=== PATIENT | female | born 1935 | race Caucasian/White ===

== ENCOUNTER → 2016-05-16 | Outpatient (CLI) | payer BC ==
[~2016-05-16] MED LIST: ANAS1TAB6 PO; ASPI81TA28 PO; CALC500C70 PO; CARB200T PO; CEFD1CAP14 PO; CHOL100010 PO; CHOL1TAB76 PO; CIPR250T3 PO; CITA10TA4 PO; CLX20 PO; DIAZ5TAB3 PO; GARL10007 PO; GARL1CAP5 PO; HYDR12.56 PO; HYDR500C3 PO; ISOS20TA4 PO; LANS30CA12 PO; LISI40TA PO; METO25TA3 PO; MULTCHW PO; OMEG10007 PO; PRAV20TA PO; PRED1SUS17 OP; PRED1SUS3 OPB; TIMO0.5S2 OPR; TMPOPS15 OP; VERA120T15 PO
== END | disposition home or self-care (01) ==
LOC: C.LABSPEC 17:31
PROVIDERS: ATTEND Urology
DX: N39.0 Urinary tract infection, site not specified (principal)

== ENCOUNTER → 2016-06-13 | Outpatient (CLI) | payer BC | END | disposition home or self-care (01) | LOC: C.LABSPEC 17:15 | PROVIDERS: ATTEND Urology | DX: N39.0 Urinary tract infection, site not specified (principal) ==

== ENCOUNTER → 2016-06-13 | Outpatient (CLI) | payer BC ==
--- NOTE | 2016-06-13 12:39 | DIAGNOSTIC IMAGING REPORT ---
KUB CLINICAL HISTORY: N20.0 [id number] nephrocalcinosis COMPARISON STUDY: 11/23/2015 FINDINGS: Unchanged peripheral 4 mm calcification right kidney. No new or interval calcifications. Nonobstructive bowel pattern. Moderate degenerative change of all major osseous structures. IMPRESSION: Right renal calcification unchanged from the prior exam. No new or interval renal calcifications Electronically signed by: Glen Ayala M.D. 06/13/2016 12:37 PM Dictated Date/Time: 06/13/2016 12:36 PM
== END | disposition home or self-care (01) ==
LOC: C.RAD 11:45
PROVIDERS: ATTEND Urology
DX: N20.0 Calculus of kidney (principal); N39.0 Urinary tract infection, site not specified

== ENCOUNTER → 2016-07-19 | Outpatient (CLI) | payer BC | END | disposition home or self-care (01) | LOC: C.LABSPEC 16:53 | PROVIDERS: ATTEND Urology | DX: N39.0 Urinary tract infection, site not specified (principal) ==

== ENCOUNTER → 2016-11-08 | Outpatient (CLI) | payer BC ==
[~2016-11-08] MED LIST changes: -CEFD1CAP14 PO; -CHOL1TAB76 PO; -CLX20 PO; -GARL10007 PO; -HYDR12.56 PO; -METO25TA3 PO; -PRED1SUS17 OP; -TMPOPS15 OP
--- NOTE | 2016-11-09 13:52 | MAMMOGRAPHY REPORT ---
BILATERAL DIGITAL SCREENING MAMMOGRAM TOMOSYNTHESIS WITH CAD: 11/08/2016 CLINICAL HISTORY: Asymptomatic. Personal history of breast cancer. TECHNIQUE: Breast tomosynthesis in addition to standard 2D mammography was performed. Current study was also evaluated with a Computer Aided Detection (CAD) system. COMPARISON: Comparison is made to exams dated: 10/26/2014 mammogram - [facility], mammogram, 10/26/2014 ultrasound biopsy, 11/18/2014 localization, and 11/18/2014 specimen - [facility]. BREAST COMPOSITION: The tissue of both breasts is heterogeneously dense, which may obscure small mas ses. FINDINGS: There is expected architectural distortion and a benign oil cyst in the lateral posterior l eft breast, at the site of prior lumpectomy. A linear scar marker overlies the left upper outer quad rant. There are moderate vascular calcifications bilaterally. An asymmetry in the lateral middle on e third of the left breast on the CC view effaces on the corresponding tomosynthesis images, most lik yosi representing normal overlapping fibrolinear tissue. No new suspicious mass, architectural distor tion or cluster of microcalcifications is seen. IMPRESSION: ACR BI-RADS CATEGORY 1: NEGATIVE There are postsurgical changes in the left breast, without mammographic evidence of malignancy bilate rally. A 1 year screening mammogram is recommended. The patient will receive written notification o f the results. Approximately 10% of breast cancers are not detected with mammography. A negative mammographic report should not delay biopsy if a clinically suggestive mass is present. Jessica Horn M.D. ay/:11/08/2016 14:18:48 Staff Counsel: Gretel ECHEVERRIA(R)(M)(BD), [facility] letter sent: Normal 1/2 BI-RADS Code: ACR BI-RADS Category 1: Negative
== END ==
LOC: C.MAMM 13:36
PROVIDERS: ATTEND Nurse Practitioner Family
DX: Z12.31 Encounter for screening mammogram for malignant neoplasm of breast (principal); Z85.3 Personal history of malignant neoplasm of breast

== ENCOUNTER → 2016-11-10 | Outpatient (CLI) | payer BC | END | disposition home or self-care (01) | LOC: C.LABSPEC 14:37 | PROVIDERS: ATTEND Urology | DX: N39.0 Urinary tract infection, site not specified (principal) ==

== ENCOUNTER → 2016-11-13 | Outpatient (CLI) | payer BC, MEDICARE | END | disposition home or self-care (01) | LOC: C.MAMM 07:53 | PROVIDERS: ATTEND Nurse Practitioner Family | DX: C50.919 Malignant neoplasm of unspecified site of unspecified female breast (principal); M81.0 Age-related osteoporosis without current pathological fracture; M85.88 Other specified disorders of bone density and structure, other site ==

== ENCOUNTER 2017-01-03 16:04 | Emergency (ER) | payer BC ==
[~2017-01-03] VITALS: Ht 149.9 cm; Wt 79.0 kg
[2017-01-03 16:10] VITALS: TEMP 37; Ht 149.9 cm; Wt 79.0 kg
--- NOTE | 2017-01-03 17:11 | EMERGENCY ROOM VISIT NOTE ---
History Report prepared by Halina: Romel Eddy Under the Supervision of: Dr. Naty Trejo M.D. First contact with patient: 17:03 Chief Complaint: CONSTIPATION Stated Complaint: FALL ON 12.25.16 Nursing Triage Summary: Pt presents with and granddaughter. Pt states tripped in the parking lot on 12/25. Pt given 2 fleet enemas this morning without results. Denies n/v or abd pain. states, "She was fine until she fell." and pt unable to relate when pts last BM was. History of Present Illness The patient is an 81 year old female who presents to the Emergency Room with persistent constipation over the past few days. Per the patient's granddaughter , the patient was given 2 fleet enemas this morning with no success. The patient denies any nausea, vomiting, chest pain, shortness of breath, or abdominal pain. Per the patient's , the patient tripped and fell in a parking lot 9 days ago, and he thinks that the patient cracked her ribs. However , the patient was never assessed for the fall. She was noted to be fine until the fall occurred. The patient does now complain of pain with movement in her back. Per the patient's granddaughter, the patient has not been eating or drinking well recently. The patient has a history of lung cancer. Source of History: patient, family Onset: Past few days Position: other (global - constipation) Symptom Intensity: 2 fleet enemas did not work Timing: other (persistent) Associated Symptoms: + back pain (with movement), No chest pain, No SOB, No nausea, No vomiting, No abdominal pain Note: Associated symptoms: Fell 9 days ago, has been having pain with movement ever since. Review of Systems See HPI for pertinent positives & negatives. A total of 10 systems reviewed and were otherwise negative. Past Medical & Surgical Medical Problems: (1) Breast cancer (2) Dysphagia (3) Elevated troponin I level (4) sepis, bacteremia, UTI Surgical Problems: (1) Esophageal dilatation (2) H/O endoscopy (3) History of Leigh Ann fundoplication Family History Patient reports no known family medical history. Social History Smoking Status: Former Smoker Alcohol Use: none Drug Use: none Marital Status: Housing Status: lives with significant other Occupation Status: retired Current/Historical Medications Scheduled Anastrozole (Anastrozole), 1 TAB PO NOON Aspirin (Aspirin Ec), 81 MG PO QAM Calcium/Vitamin D (Os-Krzysztof 500 Plus D), 1 TAB PO QAM Carbamazepine (Tegretol), 200 MG PO TID Cefdinir (Omnicef), 300 MG PO DAILY Cholecalciferol (D 2000), 2,000 UNITS PO DAILY Citalopram (Citalopram Hydrobromide), 20 MG PO DAILY Diazepam (Valium), 5 MG PO HS Fish Oil ([place]-3), 1 CAP PO QAM Garlic (Garlic), 1,000 MG PO DAILY Hydrochlorothiazide (Hctz), 12.5 MG PO DAILY Hydroxyurea (Hydrea Cap), 500 MG PO BID Isosorbide Mononitrate (Isosorbide Mononitrate), 20 MG PO BID Lansoprazole (Prevacid), 30 MG PO QAM Lisinopril (Zestril), 40 MG PO QAM Metoprolol Succ (Toprol Xl) (Toprol-Xl), 25 MG PO DAILY Multiple Vitamins W/ Minerals (Centrum Silver), 1 TAB PO QAM Pravastatin (Pravachol ), 20 MG PO QPM Prednisolone Acetate (Ophth) (Prednisolone Acetate), 1 DROP OP BID Timolol Maleate (Timolol 0.5% Oph Soln 15 Ml), 1 DROP OP BID Verapamil (Calan), 120 MG PO QAM Allergies Coded Allergies: Indigo (Verified Allergy, Mild, ?, 01/03/17) Meperidine (Verified Adverse Reaction, Mild, CONFUSION, 01/03/17) Oxycodone (Verified Adverse Reaction, Mild, CONFUSION, 01/03/17) Physical Exam Vital Signs Date Time Temp Pulse Resp B/P (MAP) Pulse Ox O2 Delivery O2 Flow Rate FiO2 01/03/17 20:46 65 16 155/74 94 01/03/17 19:29 69 16 156/76 93 Room Air 01/03/17 17:51 71 01/03/17 16:10 37.0 74 20 136/65 97 Room Air Physical Exam Vital signs reviewed. General: Well-appearing 81 year old female, in no significant distress. HEENT: No scleral icterus, PERRLA, neck supple. Atraumatic. Cardiovascular: Regular rate and rhythm, no extra sounds. Pulmonary: Clear to auscultation bilaterally, normal work of breathing. Abdomen: Soft, obese, nontender, nondistended, positive bowel sounds. Musculoskeletal: Tenderness to palpation diffusely to anterior chest and upper back, no specific tenderness to cervical, thoracic, or lumbosacral spine. No ecchymosis appreciated. Neurologic: Patient awake alert and follows commands but pleasantly confused, full strength in all 4 extremities. Cranial nerves 2 through 12 grossly intact. Skin: Warm, dry, no rash Medical Decision & Procedures ER Provider Diagnostic Interpretation: X-ray results as stated below per interpretation by me and the radiologist: ABDOMEN 2VIEW W/PA CHEST RTN CLINICAL HISTORY: constipation, fall ? rib fx trauma. Pain. COMPARISON STUDY: 06/13/2016 FINDINGS: Mild cardiomegaly. Moderate prominence of pulmonary vasculature. No evidence for pneumothorax. Nondisplaced fractures left seventh through ninth ribs. Cortical fracture left sixth rib. No evidence pneumothorax. Nonobstructive bowel pattern. Degenerative changes of the osseous structures of the pelvis and hip region. IMPRESSION: 1. Nondisplaced cortical fracture left sixth through ninth ribs. 2. No evidence for pneumothorax. 3. Mild stable cardiomegaly. 4. Nonobstructive bowel pattern. The above report was generated using voice recognition software. It may contain grammatical, syntax or spelling errors. Electronically signed by: Glen Ayala M.D. 01/03/2017 7:03 PM Dictated Date/Time: 01/03/2017 7:01 PM Laboratory Results 01/03/17 18:00 Red Blood Count 2.10, Mean Corpuscular Volume 130.5, Mean Corpuscular Hemoglobin 44.3, Mean Corpuscular Hemoglobin Concent 33.9, Mean Platelet Volume 8.7, Neutrophils (%) (Auto) 71.0, Lymphocytes (%) (Auto) 19.9, Monocytes (%) ( Auto) 7.6, Eosinophils (%) (Auto) 1.0, Basophils (%) (Auto) 0.1, Neutrophils # ( Auto) 5.98, Lymphocytes # (Auto) 1.67, Monocytes # (Auto) 0.64, Eosinophils # ( Auto) 0.08, Basophils # (Auto) 0.01 01/03/17 18:00 Test 01/03/17 17:20 01/03/17 18:00 11/29/17 18:13 Urine Color YELLOW Urine Appearance SL CLOUDY (CLEAR) Urine pH 5.0 (4.5-7.5) Urine Specific [place] 1.025 (1.000-1.030) Urine Protein TRACE (NEG) Urine Glucose (UA) NEG (NEG) Urine Ketones NEG (NEG) Urine Occult Blood 1+ (NEG) Urine Nitrite NEG (NEG) Urine Bilirubin NEG (NEG) Urine Urobilinogen NEG (NEG) Urine Leukocyte Esterase MODERATE (NEG) Urine RBC 10-30 /hpf (0-4) Urine WBC >30 /hpf (0-5) Urine Epithelial Cells >30 /lpf (0-5) Urine Bacteria 1+ (NEG) White Blood Count 8.41 K/uL (4.8-10.8) Red Blood Count 2.10 M/uL (4.2-5.4) Hemoglobin 9.3 g/dL (12.0-16.0) Hematocrit 27.4 % (37-47) Mean Corpuscular Volume 130.5 fL (80-100) Mean Corpuscular Hemoglobin 44.3 pg (25-34) Mean Corpuscular Hemoglobin Concent 33.9 g/dl (32-36) Platelet Count 300 K/uL (130-400) Mean Platelet Volume 8.7 fL (7.4-10.4) Neutrophils (%) (Auto) 71.0 % Lymphocytes (%) (Auto) 19.9 % Monocytes (%) (Auto) 7.6 % Eosinophils (%) (Auto) 1.0 % Basophils (%) (Auto) 0.1 % Neutrophils # (Auto) 5.98 K/uL (1.4-6.5) Lymphocytes # (Auto) 1.67 K/uL (1.2-3.4) Monocytes # (Auto) 0.64 K/uL (0.11-0.59) Eosinophils # (Auto) 0.08 K/uL (0-0.5) Basophils # (Auto) 0.01 K/uL (0-0.2) RDW Standard Deviation 60.4 fL (36.4-46.3) RDW Coefficient of Variation 12.8 % (11.5-14.5) Immature Granulocyte % (Auto) 0.4 % Immature Granulocyte # (Auto) 0.03 K/uL (0.00-0.02) Hypersegmented Polys 1+ Macrocytosis PRESENT Anion Gap 6.0 mmol/L (3-11) Est Creatinine Clear Calc Drug Dose 24.3 ml/min Estimated GFR () 33.9 Estimated GFR (Non- 29.3 BUN/Creatinine Ratio 27.8 (10-20) Calcium Level 9.0 mg/dl (8.5-10.1) Magnesium Level 2.6 mg/dl (1.8-2.4) Total Bilirubin 0.2 mg/dl (0.2-1) Direct Bilirubin < 0.1 mg/dl (0-0.2) Aspartate Amino Transf (AST/SGOT) 20 U/L (15-37) Alanine Aminotransferase (ALT/SGPT) 22 U/L (12-78) Alkaline Phosphatase 89 U/L (45-117) Total Protein 7.6 gm/dl (6.4-8.2) Albumin 3.1 gm/dl (3.4-5.0) Lipase 89 U/L (73-393) Bedside Troponin I < 0.030 ng/ml (0-0.045) Laboratory results per my review. Medications Administered Medications (Trade) Dose Ordered Sig/Ashley Route Start Time Stop Time Status Last Admin Dose Admin Cefdinir (Omnicef Cap) 300 mg ONE STAT PO 01/03/17 19:34 01/03/17 19:35 DC 01/03/17 20:13 300 MG Sodium Chloride 250 ml @ 999 mls/hr Q16M STAT IV 01/03/17 20:08 01/03/17 20:23 DC 01/03/17 20:11 999 MLS/HR ECG Indication: other (constipation) Rate (beats per minute): 71 Rhythm: normal sinus Findings: LBBB, no acute ischemic change, no ectopy, other (repolarization abnormality in lateral leads) Change: no significant change (from 05/05/2015) ED Course 1705: Past medical records reviewed. The patient was evaluated in room C9. A complete history and physical examination was performed. 1933: Ordered Omnicef Cap 300 mg PO. 1957: Upon reevaluation, the patient appeared to have improvement of her symptoms. I discussed findings with her and her family. They verbalized agreement of the treatment plan. The patient was discharged home. 2007: Ordered NSS 250 ml @ 999 mls/hr IV. Medical Decision Differential diagnosis: Diverticulitis, constipation, UTI, rib fracture, pneumonia, pancreatitis, cholecystitis, appendicitis. This patient was evaluated and appeared to be in no significant distress. Physical examination reveals a diffuse anterior chest and upper back tenderness without specific swelling, ecchymosis or tenderness. Chest x-ray was performed and reveals multiple rib fractures on the left side. Patient has no pneumothorax or evidence of pneumonia. There is well formed stool in the colon. Patient was given 250 mL of normal saline solution IV. Urinalysis is concerning for infection but is grossly contaminated. Given her decline over the last several weeks, she will be placed on Omnicef 300 mg once daily for 5 days. Patient was advised to use MiraLAX as needed for a bowel movement. She will continue to use her [place] sparingly as needed. Patient's desires to be discharged to the care of her family. Granddaughter ensures that she will monitor the situation at home with her closely. They'll follow-up with primary care physician for reevaluation this week. Medication Reconcilliation Current Medication List: was personally reviewed by me Blood Pressure Screening Patient's blood pressure: Elevated blood pressure Blood pressure disposition: Elevated BP felt to be situational Impression Primary Impression: Constipation Additional Impressions: UTI (urinary tract infection) Multiple fractures of ribs, left side, initial encounter for closed fracture Scribe Attestation The scribe's documentation has been prepared under my direction and personally reviewed by me in its entirety. I confirm that the note above accurately reflects all work, treatment, procedures, and medical decision making performed by me. Departure Information Dispostion Home / Self-Care Prescriptions Cefdinir (Omnicef) 300 Mg Cap 300 MG PO DAILY, #4 CAP Prov: Naty Trejo M.D. 01/03/17 Referrals Samira Mercado M.D. (PCP) Patient Instructions My [facility] Additional Instructions Diagnosis: Constipation, UTI Omnicef 300 mg once daily for 5 days. MiraLAX 1 capful daily as needed for constipation. Drink plan clear fluids. Follow-up with your physician this week for reevaluation. Return to the ER for worsening of symptoms or any medical concerns. Problem Qualifiers
[2017-01-03] MEDS ORDERED: METO25TA3 PO (17:20)
[2017-01-03] MEDS ORDERED: TMPOPS15 OP (17:20)
[2017-01-03] MEDS ORDERED: CHOL1TAB76 PO (17:20)
[2017-01-03] MEDS ORDERED: GARL10007 PO (17:20)
[2017-01-03] MEDS ORDERED: CLX20 PO (17:20)
[2017-01-03] MEDS ORDERED: HYDR12.56 PO (17:20)
[2017-01-03] MEDS ORDERED: PRED1SUS17 OP (17:20)
[2017-01-03 17:42] LABS: MANUAL MICROSCOPIC REQUIRED? YES; URINE APPEARANCE SL CLOUDY (CLEAR); URINE BILIRUBIN NEG (NEG); URINE COLOR YELLOW; URINE NITRITE NEG (NEG); URINE SPECIFIC GRAVITY 1.025 (1.000-1.030); UROBILINOGEN NEG (NEG)
[2017-01-03 17:43] LABS: REVIEW REQ? NO
[2017-01-03 17:52] LABS: URINE BACTERIA 1+ (NEG); URINE WBC >30 /hpf (0-5); ZZUR CULT IF INDIC CLEAN CATCH YES
[2017-01-03 18:21] LABS: BASO % 0.1 %; BASO ABS # 0.01 K/uL (0-0.2); HEMATOCRIT 27.4 % (37-47); IG% 0.4 %; LYMPH % 19.9 %; LYMPH ABS # 1.67 K/uL (1.2-3.4); MEAN CELL VOLUME 130.5 fL (80-100); MEAN CORPUSCULAR HEMOGLOBIN 44.3 pg (25-34); MEAN CORPUSCULAR HGB CONC 33.9 g/dl (32-36); MEAN PLATELET VOLUME 8.7 fL (7.4-10.4); MONO % 7.6 %; PLATELET COUNT 300 K/uL (130-400); WHITE BLOOD COUNT 8.41 K/uL (4.8-10.8)
[2017-01-03 18:32] LABS: ALT/SGPT 22 U/L (12-78); BLOOD UREA NITROGEN 45 mg/dl (7-18); BUN/CREATININE RATIO 27.8 (10-20); CARBON DIOXIDE 28 mmol/L (21-32); CHLORIDE 102 mmol/L (98-107); CREATININE 1.62 mg/dl (0.60-1.20); GLUCOSE 103 mg/dl (70-99); MAGNESIUM 2.6 mg/dl (1.8-2.4); POTASSIUM 4.8 mmol/L (3.5-5.1); SODIUM 136 mmol/L (136-145)
[2017-01-03 18:35] LABS: ALKALINE PHOSPHATASE 89 U/L (45-117); AST/SGOT 20 U/L (15-37)
[2017-01-03 18:45] LABS: COMPLETE YES; HYPERSEGMENTED POLYS 1+
--- NOTE | 2017-01-03 19:05 | DIAGNOSTIC IMAGING REPORT ---
ABDOMEN 2VIEW W/PA CHEST RTN CLINICAL HISTORY: constipation, fall ? rib fx trauma. Pain. COMPARISON STUDY: 06/13/2016 FINDINGS: Mild cardiomegaly. Moderate prominence of pulmonary vasculature. No evidence for pneumothorax. Nondisplaced fractures left seventh through ninth ribs. Cortical fracture left sixth rib. No evidence pneumothorax. Nonobstructive bowel pattern. Degenerative changes of the osseous structures of the pelvis and hip region. IMPRESSION: 1. Nondisplaced cortical fracture left sixth through ninth ribs. 2. No evidence for pneumothorax. 3. Mild stable cardiomegaly. 4. Nonobstructive bowel pattern. The above report was generated using voice recognition software. It may contain grammatical, syntax or spelling errors. Electronically signed by: Glen Ayala M.D. 01/03/2017 7:03 PM Dictated Date/Time: 01/03/2017 7:01 PM
[2017-01-03] MEDS ORDERED: CEFDINIR 300 MG CAP PO STA (19:34)
[2017-01-03] MEDS ORDERED: SODIUM CHLORIDE 0.9% 250ML 250 ML IV STA (20:08)
[2017-01-03] MEDS ORDERED: CEFD1CAP14 PO (20:14)
[2017-01-03 20:46] VITALS: BP 155/74; PULSE 65; O2SAT 94
== END 2017-01-03 20:47 | disposition home or self-care (01) ==
LOC: C.EDB 16:05 → C.EDC 20:47
DX: K59.00 Constipation, unspecified (principal); N39.0 Urinary tract infection, site not specified; S22.42XA Multiple fractures of ribs, left side, initial encounter for closed fracture; W18.09XA Striking against other object with subsequent fall, initial encounter; Y92.89 Other specified places as the place of occurrence of the external cause; Z87.891 Personal history of nicotine dependence; Z79.82 Long term (current) use of aspirin; Z79.899 Other long term (current) drug therapy; Z85.3 Personal history of malignant neoplasm of breast; E66.9 Obesity, unspecified; Z68.35 Body mass index [BMI] 35.0-35.9, adult

== ENCOUNTER 2017-04-22 21:40 | Inpatient (IN) | payer BC, OTHER ==
[~2017-04-22] VITALS: Ht 152.4 cm; Wt 70.3 kg
[~2017-04-22 21:40] MED LIST changes: +CEFD1CAP14 PO; -CHOL100010 PO; +CHOL1TAB76 PO; -CIPR250T3 PO; -CITA10TA4 PO; +CLX20 PO; +GARL10007 PO; -GARL1CAP5 PO; +HYDR12.56 PO; +METO25TA3 PO; +PRED1SUS17 OPB; -PRED1SUS3 OPB; -TIMO0.5S2 OPR; +TMPOPS15 OPR
[2017-04-22 22:08] LABS: BASO % 0.3 %; BASO ABS # 0.02 K/uL (0-0.2); EOS % 1.9 %; EOS ABS # 0.11 K/uL (0-0.5); HEMATOCRIT 31.6 % (37-47); HEMOGLOBIN 10.7 g/dL (12.0-16.0); IG# 0.02 K/uL (0.00-0.02); LYMPH % 29.5 %; LYMPH ABS # 1.71 K/uL (1.2-3.4); MEAN CORPUSCULAR HGB CONC 33.9 g/dl (32-36); MEAN PLATELET VOLUME 8.6 fL (7.4-10.4); MONO ABS # 0.35 K/uL (0.11-0.59); NEUT ABS # 3.58 K/uL (1.4-6.5); PLATELET COUNT 276 K/uL (130-400); RED CELL DISTRIBUTION WIDTH CV 12.7 % (11.5-14.5); RED CELL DISTRIBUTION WIDTH SD 59.9 fL (36.4-46.3); WHITE BLOOD COUNT 5.79 K/uL (4.8-10.8)
[2017-04-22 22:26] LABS: ALBUMIN 3.2 gm/dl (3.4-5.0); ALT/SGPT 21 U/L (12-78); BLOOD UREA NITROGEN 41 mg/dl (7-18); CALCIUM 8.3 mg/dl (8.5-10.1); CARBON DIOXIDE 33 mmol/L (21-32); CREATININE 1.67 mg/dl (0.60-1.20); GLUCOSE 106 mg/dl (70-99); POTASSIUM 4.5 mmol/L (3.5-5.1); SODIUM 138 mmol/L (136-145)
[2017-04-22 22:37] LABS: ALKALINE PHOSPHATASE 82 U/L (45-117); AST/SGOT 19 U/L (15-37); CKMB 0.5 ng/ml (0.5-3.6); TOTAL PROTEIN 7.7 gm/dl (6.4-8.2)
--- NOTE | 2017-04-22 22:44 | EMERGENCY ROOM VISIT NOTE ---
History Report prepared by Halina: Kathy Fox Under the Supervision of: Dr. Jimi Lizarraga M.D. First contact with patient: 22:10 Chief Complaint: FLU LIKE SX Stated Complaint: FALL/WEAKNESS/FLU SYMPTOMS History of Present Illness The patient is an 82 year old female who presents to the Emergency Room with complaints of persistent general weakness for several days. Per , the patient had a stroke in 2002 and has been dealing with short term memory issues since that time. She had left-sided weakness, though reports that she regained her strength after the stroke. She has a history of seizures, though her last seizure was also in 2002. Per , the patient has been unable to maintain her balance since she had a fall in December 2016. She states that her legs have been more weak than normal. She reports a wet cough that began today, with white phlegm. She denies any headaches, chest pain, abdominal pain, or urinary symptoms. She denies any fevers or sick contacts. She denies any bloody stools. Source of History: patient Onset: several days Position: other (general ) Quality: other (weakness) Timing: other (persistent) Associated Symptoms: + cough, No fevers, No headache, No chest pain, No abdominal pain, No urinary symptoms Note: She notes memory issues. She denies any sick contacts. Review of Systems See HPI for pertinent positives & negatives. A total of 10 systems reviewed and were otherwise negative. Past Medical & Surgical Medical Problems: (1) Breast cancer (2) Dysphagia (3) Elevated troponin I level (4) sepis, bacteremia, UTI (5) Weakness Surgical Problems: (1) Esophageal dilatation (2) H/O endoscopy (3) History of Leigh Ann fundoplication Old medical records were reviewed. Nurse's notes were reviewed and I agree with. Family History Patient reports no known family medical history. Social History Smoking Status: Former Smoker Alcohol Use: none Drug Use: none Marital Status: Housing Status: lives with significant other Occupation Status: retired Current/Historical Medications Scheduled Anastrozole (Anastrozole), 1 TAB PO DAILY AT NOON Aspirin (Aspirin Ec), 81 MG PO QAM Calcium/Vitamin D (Os-Krzysztof 500 Plus D), 1 TAB PO QAM Carbamazepine (Tegretol), 200 MG PO TID Cholecalciferol (D 1999), 2,000 UNITS PO DAILY AT NOON Citalopram (Citalopram Hydrobromide), 20 MG PO QAM Diazepam (Valium), 5 MG PO HS Fish Oil ([place]-3), 1 CAP PO DAILY AT NOON Garlic (Garlic), 1,000 MG PO QPM Hydrochlorothiazide (Hctz), 12.5 MG PO DAILY AT NOON Hydroxyurea (Hydrea Cap), 500 MG PO BID AT NOON & 1700 Isosorbide Mononitrate (Isosorbide Mononitrate), 20 MG PO BID17 Lansoprazole (Prevacid), 30 MG PO QAM Lisinopril (Zestril), 40 MG PO QAM Metoprolol Succ (Toprol Xl) (Toprol-Xl), 25 MG PO DAILY AT NOON Multiple Vitamins W/ Minerals (Centrum Silver), 1 TAB PO QAM Pravastatin (Pravachol ), 20 MG PO HS Prednisolone Acetate (Ophth) (Prednisolone Acetate), 1 DROP OPB [facility] Timolol Maleate (Timolol 0.5% Oph Soln 15 Ml), 1 DROP OPR [facility] Verapamil (Calan), 120 MG PO QPM Allergies Coded Allergies: Indigo (Verified Allergy, Mild, ?, 04/22/17) Meperidine (Verified Adverse Reaction, Intermediate, CONFUSION, 04/22/17) Oxycodone (Verified Adverse Reaction, Intermediate, CONFUSION, 04/22/17) Physical Exam Vital Signs Date Time Temp Pulse Resp B/P (MAP) Pulse Ox O2 Delivery O2 Flow Rate FiO2 04/23/17 01:15 65 04/23/17 00:30 63 20 137/56 98 Nasal Cannula 3.0 04/22/17 23:30 64 20 131/93 99 Nasal Cannula 4.0 04/22/17 21:56 36.7 93 18 139/83 94 Room Air 04/22/17 21:54 94 Room Air 04/22/17 21:46 63 Physical Exam General: Chronically-ill appearing older female in no acute distress. Sleepy, but arousable. Dry hacking cough. HEENT: Normal cephalic atraumatic. Pupils are equal round and reactive to light. Extraocular movements are intact. Oropharynx is pink with moist mucous membranes. No swelling of the mouth lips or tongue. Neck: Supple with a midline trachea. No meningeal signs or stiffness, no JVD or bruits. No Stridor. Chest: Rhonchi bilaterally. No increased work of breathing. Heart: regular rate and rhythm. Abdomen: Soft nontender, nondistended without rebound guarding or rigidity. Extremities: No cyanosis clubbing or edema. No calf tenderness or assymetry Spine/Back. Non tender to palpation. No CVA tenderness Skin: Good turgor without rashes. Neurologic exam: Cranial nerves two through 12 are intact. Motor and sensation are intact and symmetrical throughout. Medical Decision & Procedures ER Provider Diagnostic Interpretation: Radiology results as stated below per my review and radiologist interpretation: CHEST ONE VIEW PORTABLE HISTORY: 82 years-old Female cough acute cough with flulike symptoms COMPARISON: Acute abdominal series radiographs 01/03/2017 TECHNIQUE: Portable AP view of the chest FINDINGS: The patient is slightly rotated to the left. Cardiac silhouette is again enlarged. Chronic volume loss with postsurgical changes of the right lung redemonstrated. Areas of chronic interstitial coarsening are again noted bilaterally, greatest at the level the lung bases and right perihilar distribution. There is no pneumothorax or large pleural effusion. No overt pulmonary edema. Patchy subsegmental left basilar opacities appear new from comparison. Surgical clips project over the left breast laterally. Degenerative changes are seen within the shoulders and spine. Atherosclerosis of the aorta. Chronic bilateral rib fractures. IMPRESSION: 1. Patchy subsegmental left basilar opacities appear new from comparison suggesting atelectasis or pneumonitis. 2. The remainder of the study appears unchanged. The above report was generated using voice recognition software. It may contain grammatical, syntax or spelling errors. Electronically signed by: Nik Lucas M.D. 04/22/2017 10:41 PM Dictated Date/Time: 04/22/2017 10:38 PM HEAD WITHOUT CONTRAST (CT) CLINICAL HISTORY: 82 years-old Female with eval for weakness. Acute weakness TECHNIQUE: Multiple axial CT images of the head were obtained without contrast. A dose lowering technique was utilized adhering to the principles of ALARA. CT DOSE: 537.48 mGy.cm COMPARISON: None. FINDINGS: No acute intracranial hemorrhage, midline shift, intracranial mass, hydrocephalus, territorial ischemia or abnormal extra-axial collection. Moderate atrophy with ex vacuo ventriculomegaly. Encephalomalacia of the left caudate nucleus from remote infarction. Extensive areas of low-attenuation within the white matter of the cerebral hemispheres bilaterally suggest chronic microvascular ischemic changes, greatest at the level of the centrum semiovale. Cerebral vascular calcifications are seen at the level of the skull base. The calvarium is intact. The mastoid air cells, and middle ear cavities are clear. Mild mucosal thickening of the ethmoid air cells. Postsurgical changes of the globes. IMPRESSION: No acute intracranial abnormality. The above report was generated using voice recognition software. It may contain grammatical, syntax or spelling errors. Electronically signed by: Nik Lucas M.D. 04/22/2017 10:46 PM Dictated Date/Time: 04/22/2017 10:42 PM Laboratory Results 04/22/17 21:30 Red Blood Count 2.43, Mean Corpuscular Volume 130.0, Mean Corpuscular Hemoglobin 44.0, Mean Corpuscular Hemoglobin Concent 33.9, Mean Platelet Volume 8.6, Neutrophils (%) (Auto) 62.0, Lymphocytes (%) (Auto) 29.5, Monocytes (%) ( Auto) 6.0, Eosinophils (%) (Auto) 1.9, Basophils (%) (Auto) 0.3, Neutrophils # ( Auto) 3.58, Lymphocytes # (Auto) 1.71, Monocytes # (Auto) 0.35, Eosinophils # ( Auto) 0.11, Basophils # (Auto) 0.02 04/22/17 21:30 Test 04/22/17 00:00 04/22/17 21:30 04/22/17 21:50 04/22/17 23:20 Influenza Type A Antigen Neg for Influ A (NEG) Influenza Type B Antigen Neg for Influ B (NEG) White Blood Count 5.79 K/uL (4.8-10.8) Red Blood Count 2.43 M/uL (4.2-5.4) Hemoglobin 10.7 g/dL (12.0-16.0) Hematocrit 31.6 % (37-47) Mean Corpuscular Volume 130.0 fL (80-100) Mean Corpuscular Hemoglobin 44.0 pg (25-34) Mean Corpuscular Hemoglobin Concent 33.9 g/dl (32-36) Platelet Count 276 K/uL (130-400) Mean Platelet Volume 8.6 fL (7.4-10.4) Neutrophils (%) (Auto) 62.0 % Lymphocytes (%) (Auto) 29.5 % Monocytes (%) (Auto) 6.0 % Eosinophils (%) (Auto) 1.9 % Basophils (%) (Auto) 0.3 % Neutrophils # (Auto) 3.58 K/uL (1.4-6.5) Lymphocytes # (Auto) 1.71 K/uL (1.2-3.4) Monocytes # (Auto) 0.35 K/uL (0.11-0.59) Eosinophils # (Auto) 0.11 K/uL (0-0.5) Basophils # (Auto) 0.02 K/uL (0-0.2) RDW Standard Deviation 59.9 fL (36.4-46.3) RDW Coefficient of Variation 12.7 % (11.5-14.5) Immature Granulocyte % (Auto) 0.3 % Immature Granulocyte # (Auto) 0.02 K/uL (0.00-0.02) Macrocytosis PRESENT Spherocytes 1+ Anion Gap 3.0 mmol/L (3-11) Est Creatinine Clear Calc Drug Dose 23.0 ml/min Estimated GFR () 32.5 Estimated GFR (Non- 28.0 BUN/Creatinine Ratio 24.6 (10-20) Calcium Level 8.3 mg/dl (8.5-10.1) Total Bilirubin 0.3 mg/dl (0.2-1) Aspartate Amino Transf (AST/SGOT) 19 U/L (15-37) Alanine Aminotransferase (ALT/SGPT) 21 U/L (12-78) Alkaline Phosphatase 82 U/L (45-117) Total Creatine Kinase 49 U/L (26-192) Creatine Kinase MB 0.5 ng/ml (0.5-3.6) Creatine Kinase MB Ratio 1.0 (0-3.0) Troponin I < 0.015 ng/ml (0-0.045) Total Protein 7.7 gm/dl (6.4-8.2) Albumin 3.2 gm/dl (3.4-5.0) Globulin 4.5 gm/dl (2.5-4.0) Albumin/Globulin Ratio 0.7 (0.9-2) Thyroid Stimulating Hormone (TSH) 1.070 uIu/ml (0.300-4.500) Carbamazepine (Tegretol) Level 17.3 mcg/ml (4-12) Urine Color YELLOW Urine Appearance CLEAR (CLEAR) Urine pH 5.5 (4.5-7.5) Urine Specific [place] 1.019 (1.000-1.030) Urine Protein 1+ (NEG) Urine Glucose (UA) NEG (NEG) Urine Ketones NEG (NEG) Urine Occult Blood NEG (NEG) Urine Nitrite NEG (NEG) Urine Bilirubin NEG (NEG) Urine Urobilinogen NEG (NEG) Urine Leukocyte Esterase MODERATE (NEG) Urine WBC (Auto) >30 /hpf (0-5) Urine RBC (Auto) 0-4 /hpf (0-4) Urine Hyaline Casts (Auto) 1-5 /lpf (0-5) Urine Epithelial Cells (Auto) 0-5 /lpf (0-5) Urine Bacteria (Auto) 1+ (NEG) Laboratory studies as stated above per my review. Medications Administered Medications (Trade) Dose Ordered Sig/Ashley Route Start Time Stop Time Status Last Admin Dose Admin Sodium Chloride 500 ml @ 999 mls/hr Q31M STAT IV 04/23/17 00:15 04/23/17 00:45 DC 04/23/17 00:54 999 MLS/HR Sodium Chloride 1,000 ml @ 150 mls/hr Q6H40M ONCE IV 04/23/17 00:15 04/23/17 06:54 04/23/17 01:34 150 MLS/HR ECG Per My Interpretation Indication: weakness Rate (beats per minute): 62 Rhythm: normal sinus, other (sinus arrythmia ) Findings: LBBB Change: no significant change (when compared to 12/24/2016) ED Course 2220: Past medical records reviewed. The patient was evaluated in room B3B, and a complete history and physical examination were performed. 0005: I reassessed the patient at this time. She is resting comfortably. I discussed the results and treatment plan with the patient's family. I answered all pertaining questions that they had. They expressed understanding and verbalized agreement. The patient will be discharged home. 0010: I [place] Garza, [facility] [place] We discussed the patient's case. The patient will be evaluated by the [facility] for further management. 0015: Ordered Sodium Chloride 1,000 ml @ 150 mls/hr IV and Sodium Chloride 500 ml @ 999 mls/hr IV Medical Decision Differentials include, but are not limited to: PNA, influenza, sepsis, cardiac dis, UTI, intracranial process, and electrolyte or metabolic abnormality. This patient comes in as described above she has felt weak for the last several weeks. She has been weak in both of her legs but nonfocal. She has had no chest pain but she has had a cough. EKG does not show acute ischemic changes or ectopy. Chest x-ray does not show any definite infiltrate. She has no white count or fever to suggest infection her BUN and creatinine are elevated consistent with dehydration. Her Tegretol level is also elevated. This may be causing her to feel weak and off balance. CAT scan of her head is unremarkable and neurologic exam is nonfocal. Her urinalysis came back and is suggestive for possible UTI so this could also be causing her symptoms. She was hydrated with IV normal saline and may ultimately need antibiotics or further treatment. She was evaluated by the [facility] hospitalist for admission/ observation. Medication Reconcilliation Current Medication List: was personally reviewed by me Blood Pressure Screening Patient's blood pressure: Elevated blood pressure referred to hospitalist Consults Time Called: 9 Consulting Physician: Dr. Garza, [facility] I spoke with Dr. Garza [facility] [place] We discussed the patient's case. The patient will be evaluated by the [facility] for further management. Impression Primary Impression: Dehydration Additional Impressions: Carbamazepine toxicity UTI (urinary tract infection) Scribe Attestation The scribe's documentation has been prepared under my direction and personally reviewed by me in its entirety. I confirm that the note above accurately reflects all work, treatment, procedures, and medical decision making performed by me. Departure Information Dispostion Being Evaluated By Hospitalist Referrals Samira Mercado M.D. (PCP) Patient Instructions My [facility] Problem Qualifiers
--- NOTE | 2017-04-22 22:47 | DIAGNOSTIC IMAGING REPORT ---
HEAD WITHOUT CONTRAST (CT) CLINICAL HISTORY: 82 years-old Female with eval for weakness. Acute weakness TECHNIQUE: Multiple axial CT images of the head were obtained without contrast. A dose lowering technique was utilized adhering to the principles of ALARA. CT DOSE: 537.48 mGy.cm COMPARISON: None. FINDINGS: No acute intracranial hemorrhage, midline shift, intracranial mass, hydrocephalus, territorial ischemia or abnormal extra-axial collection. Moderate atrophy with ex vacuo ventriculomegaly. Encephalomalacia of the left caudate nucleus from remote infarction. Extensive areas of low-attenuation within the white matter of the cerebral hemispheres bilaterally suggest chronic microvascular ischemic changes, greatest at the level of the centrum semiovale. Cerebral vascular calcifications are seen at the level of the skull base. The calvarium is intact. The mastoid air cells, and middle ear cavities are clear. Mild mucosal thickening of the ethmoid air cells. Postsurgical changes of the globes. IMPRESSION: No acute intracranial abnormality. The above report was generated using voice recognition software. It may contain grammatical, syntax or spelling errors. Electronically signed by: Nik Lucas M.D. 04/22/2017 10:46 PM Dictated Date/Time: 04/22/2017 10:42 PM
[2017-04-23] VITALS (10 sets, daily range): BP systolic 113–171; BP diastolic 70–81; PULSE 51–96; TEMP 36–37.5; O2SAT 88–100; Ht 152.4 cm; Wt 70.3 kg
[2017-04-23] MEDS ORDERED: SODIUM CHLORIDE 0.9% 1000ML 500 ML IV STA (00:15)
[2017-04-23] MEDS ORDERED: SODIUM CHLORIDE 0.9% 1000ML 1,000 ML IV ONE (00:15)
[2017-04-23 01:33] LABS: INFLUENZA B ANTIGEN Neg for Influ B (NEG)
[2017-04-23] MEDS ORDERED: ONDANSETRON INJ 2 MG/ML 2 ML VIAL IV PRN (02:15)
[2017-04-23] MEDS ORDERED: MAGNESIUM HYDROXIDE SUSP 30 ML UDC PO PRN (02:15)
[2017-04-23] MEDS ORDERED: POLYETHYLENE (MIRALAX) 17 GM PACK PO PRN (02:15)
[2017-04-23] MEDS ORDERED: ALUMINUM/MAGNESIUM/SIMETH (MAALOX MAX) 30 ML UDC PO PRN (02:15)
--- NOTE | 2017-04-23 02:35 | History and Physical ---
History & Physical Date & Time of Service: Apr 23, 2017 at 02:22 Chief Complaint: Fall/Weakness/Flu Symptoms Primary Care Physician: Samira Mercado M.D. History of Present Illness Source: patient, hospital records 82 y/o F Hx HTN, HPL, LVH, LBBB, dysphagia, met breast CA, CVA, anemia, seizure disorder. Pt c/o congestion and flu-like symptoms over the past 2 days. She has had a productive cough and had become progressively weak. She could not support her own weight today and presented to the hospital therefore. She denies CP, significant SOB, N/V, diarrhea or dysuria. Initial labs are notable for a toxic Carbamazepine level, SUZANNE, macrocytic anemia and a marginally (+) UA. A CXR is suspicious for a L PNM. 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 Social History States she quit smoking over 45 years ago - does not drink alcohol - lives independently with her Smoking Status: Former Smoker Drug Use: none Marital Status: Occupational Status: retired Immunizations History of Influenza Vaccine: Yes Influenza Vaccine Date: Nov 27, 2006 History of Tetanus Vaccine?: Unknown History of Pneumococcal: Unknown History of Hepatitis B Vaccine: Unknown Allergies Coded Allergies: Indigo (Verified Allergy, Mild, ?, 04/22/17) Meperidine (Verified Adverse Reaction, Intermediate, CONFUSION, 04/22/17) Oxycodone (Verified Adverse Reaction, Intermediate, CONFUSION, 04/22/17) Home Medications Scheduled Anastrozole (Anastrozole), 1 TAB PO DAILY AT NOON Aspirin (Aspirin Ec), 81 MG PO QAM Calcium/Vitamin D (Os-Krzysztof 500 Plus D), 1 TAB PO QAM Carbamazepine (Tegretol), 200 MG PO TID Cholecalciferol (D 2000), 2,000 UNITS PO DAILY AT NOON Citalopram (Citalopram Hydrobromide), 20 MG PO QAM Diazepam (Valium), 5 MG PO HS Fish Oil ([place]-3), 1 CAP PO DAILY AT NOON Garlic (Garlic), 1,000 MG PO QPM Hydrochlorothiazide (Hctz), 12.5 MG PO DAILY AT NOON Hydroxyurea (Hydrea Cap), 500 MG PO BID AT NOON & 1700 Isosorbide Mononitrate (Isosorbide Mononitrate), 20 MG PO BID17 Lansoprazole (Prevacid), 30 MG PO QAM Lisinopril (Zestril), 40 MG PO QAM Metoprolol Succ (Toprol Xl) (Toprol-Xl), 25 MG PO DAILY AT NOON Multiple Vitamins W/ Minerals (Centrum Silver), 1 TAB PO QAM Pravastatin (Pravachol ), 20 MG PO HS Prednisolone Acetate (Ophth) (Prednisolone Acetate), 1 DROP OPB [facility] Timolol Maleate (Timolol 0.5% Oph Soln 15 Ml), 1 DROP OPR [facility] Verapamil (Calan), 120 MG PO QPM Review of Systems Constitutional: + weakness, + fatigue, No fever, No chills, No sweats Eyes: No worsening of vision ENT: No hearing loss, No unusual epistaxis, No nasal symptoms Respiratory: + cough, + sputum, + wheezing, No shortness of breath Cardiovascular: No chest pain, No orthopnea, No PND Abdomen: No pain, No nausea, No vomiting Musculoskeletal: No joint pain Genitourinary - Female: No dysuria, No urinary frequency, No urinary urgency Neurologic: + weakness, + balance problems, No memory loss, No paralysis Endocrine: + fatigue Hematologic / Lymphatic: No abnormal bleeding/bruising Integumentary: No rash Allergic / Immunologic: No environmental allergies Physical Exam Vital Signs Date Time Temp Pulse Resp B/P (MAP) Pulse Ox O2 Delivery O2 Flow Rate FiO2 04/23/17 01:15 65 04/23/17 00:30 63 20 137/56 98 Nasal Cannula 3.0 04/22/17 23:30 64 20 131/93 99 Nasal Cannula 4.0 04/22/17 21:56 36.7 93 18 139/83 94 Room Air 04/22/17 21:54 94 Room Air 04/22/17 21:46 63 General Appearance: WD/WN, + pertinent finding (Overweight, pleasant, elderly female in no acute distress - breathing appears labored although she is comfortable lying flat) Head: normocephalic Eyes: normal inspection ENT: normal ENT inspection, pharynx normal Neck: supple, + pertinent finding (Cannot assess JVD due to habitus) Respiratory/Chest: chest non-tender, + pertinent finding (ENd expiratory wheezing BL without clear crackles) Cardiovascular: regular rate, rhythm, no edema, no gallop Abdomen/GI: normal bowel sounds, non tender, soft Back: normal inspection, no CVA tenderness, no muscle spasm Extremities/Musculoskelatal: normal inspection, no calf tenderness, normal capillary refill 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/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, + pertinent finding (The pt has a hard time raising her legs - there is minimal diatel weakness - there is no significant sensory loss although light touch may be slightly impaired distally - she does not have additional deficits and is entirely oriented) Skin: normal color, warm/dry Diagnostics Laboratory Results Results Past 24 Hours Test 04/22/17 21:30 04/22/17 21:50 04/22/17 23:20 Range/Units White Blood Count 5.79 4.8-10.8 K/uL Red Blood Count 2.43 4.2-5.4 M/uL Hemoglobin 10.7 12.0-16.0 g/dL Hematocrit 31.6 37-47 % Mean Corpuscular Volume 130.0 80-100 fL Mean Corpuscular Hemoglobin 44.0 25-34 pg Mean Corpuscular Hemoglobin Concent 33.9 32-36 g/dl Platelet Count 276 130-400 K/uL Mean Platelet Volume 8.6 7.4-10.4 fL Neutrophils (%) (Auto) 62.0 % Lymphocytes (%) (Auto) 29.5 % Monocytes (%) (Auto) 6.0 % Eosinophils (%) (Auto) 1.9 % Basophils (%) (Auto) 0.3 % Neutrophils # (Auto) 3.58 1.4-6.5 K/uL Lymphocytes # (Auto) 1.71 1.2-3.4 K/uL Monocytes # (Auto) 0.35 0.11-0.59 K/uL Eosinophils # (Auto) 0.11 0-0.5 K/uL Basophils # (Auto) 0.02 0-0.2 K/uL RDW Standard Deviation 59.9 36.4-46.3 fL RDW Coefficient of Variation 12.7 11.5-14.5 % Immature Granulocyte % (Auto) 0.3 % Immature Granulocyte # (Auto) 0.02 0.00-0.02 K/uL Macrocytosis PRESENT Spherocytes 1+ Sodium Level 138 136-145 mmol/L Potassium Level 4.5 3.5-5.1 mmol/L Chloride Level 102 98-107 mmol/L Carbon Dioxide Level 33 21-32 mmol/L Anion Gap 3.0 3-11 mmol/L Blood Urea Nitrogen 41 7-18 mg/dl Creatinine 1.67 0.60-1.20 mg/dl Est Creatinine Clear Calc Drug Dose 23.0 ml/min Estimated GFR () 32.5 Estimated GFR (Non- 28.0 BUN/Creatinine Ratio 24.6 10-20 Random Glucose 106 70-99 mg/dl Calcium Level 8.3 8.5-10.1 mg/dl Total Bilirubin 0.3 0.2-1 mg/dl Aspartate Amino Transf (AST/SGOT) 19 15-37 U/L Alanine Aminotransferase (ALT/SGPT) 21 12-78 U/L Alkaline Phosphatase 82 45-117 U/L Total Creatine Kinase 49 26-192 U/L Creatine Kinase MB 0.5 0.5-3.6 ng/ml Creatine Kinase MB Ratio 1.0 0-3.0 Troponin I < 0.015 0-0.045 ng/ml Total Protein 7.7 6.4-8.2 gm/dl Albumin 3.2 3.4-5.0 gm/dl Globulin 4.5 2.5-4.0 gm/dl Albumin/Globulin Ratio 0.7 0.9-2 Thyroid Stimulating Hormone (TSH) 1.070 0.300-4.500 uIu/ml Carbamazepine (Tegretol) Level 17.3 4-12 mcg/ml Urine Color YELLOW Urine Appearance CLEAR CLEAR Urine pH 5.5 4.5-7.5 Urine Specific [place] 1.019 1.000-1.030 Urine Protein 1+ NEG Urine Glucose (UA) NEG NEG Urine Ketones NEG NEG Urine Occult Blood NEG NEG Urine Nitrite NEG NEG Urine Bilirubin NEG NEG Urine Urobilinogen NEG NEG Urine Leukocyte Esterase MODERATE NEG Urine WBC (Auto) >30 0-5 /hpf Urine RBC (Auto) 0-4 0-4 /hpf Urine Hyaline Casts (Auto) 1-5 0-5 /lpf Urine Epithelial Cells (Auto) 0-5 0-5 /lpf Urine Bacteria (Auto) 1+ NEG Microbiology Results 04/22/17 Urine Culture, Received Pending Diagnostic Radiology CXR: 1. Patchy subsegmental left basilar opacities appear new from comparison suggesting atelectasis or pneumonitis. 2. The remainder of the study appears unchanged. EKG Sinus LBBB, no significant morphological change Impression Assessment and Plan 82 y/o F Hx HTN, HPL, LVH, LBBB, dysphagia, met breast CA, CVA, anemia, seizure disorder. Pt c/o congestion and flu-like symptoms over the past 2 days. She has had a productive cough and had become progressively weak. She could not support her own weight today and presented to the hospital therefore. She denies CP, significant SOB, N/V, diarrhea or dysuria. Initial labs are notable for a toxic Carbamazepine level, SUZANNE, anemia and a marginally (+) UA. A CXR is suspicious for a L PNM. 1) Weakness with ambulatory dysfunction - differential is broad in this pt and cause is likely multifactorial as there is evidence of infection, Carbamazepine toxicity and anemia with a high MCV. Workup is in progress - addressed individually below. 2) Carbamazepine toxicity - can cause ataxia, although she more displays just weakness - will hold med and provide IVF - she has not had a seizure in several years. Likely requires a dose adjustment on DC. Levels will be trended. 3) Pneumonia - need to consider aspiration due to dysphagia/esophageal dilatation history - She is placed on Unasyn and Zithro. Nebs and 02 provided. 4) UA is marginally (+) - should be adequately covered by the above - we would choose to treat regardless due to sepsis history 5) She has anemia with a high MCV - both of which are chronic - exam is not consistent with subacute degeneration, however, we will check a B12 level. It is noted that she takes Hydroxyurea which will cause macrocytosis so that the MCV in itself is not a useful indicator. Hb is at baseline. There is no record on the chart as to why she is prescribed Hydroxyurea - may indicate active malignancy. 6) SUZANNE - has occurred with previous acute illness and is likely pre-renal - IVF provided. Lisinopril and HCTZ held 7) HTN/HPL - cont Bblocker, Verapamil, Statin 8) History of CVA - cont ASA, Statin 9) Glaucoma - cont Timolol Full code - Heparin prophylaxis Total time for this admit including review of labs, meds imaging, records - discussion with pt and ER attending - 50 min Resuscitation Status VTE Prophylaxis Will order VTE Prophylaxis: Yes
[2017-04-23 03:12] LABS: INR 0.9 (0.9-1.1); PTT PATIENT 28.2 SECONDS (21.0-31.0)
[2017-04-23] MEDS ORDERED: AMPICILLIN/SULBACTAM CONSULT ACTIVE PRN (03:30)
[2017-04-23] MEDS: AMPICILLIN/SULBACTAM SOD INJ 3,000 MG in SODIUM CHLORIDE 0.9% 100ML 100 ML IV SCH ×2 (04:03→16:13)
[2017-04-23] MEDS ORDERED: IV FLUIDS COMPLETED PRN (04:45)
[2017-04-23] MEDS: SODIUM CHLORIDE 0.9% 1000ML 1,000 ML IV SCH ×3 (04:52→20:20)
[2017-04-23] MEDS: AZITHROMYCIN IV 500 MG in DEXTROSE 5% 250ML 250 ML IV SCH (04:53)
[2017-04-23] MEDS: ALBUT/IPRATROP 3MG/0.5MG NEB 3 ML VIAL INH SCH ×3 (07:19→20:41)
[2017-04-23] MEDS: ASPIRIN 81 MG ECTAB PO SCH (07:54)
[2017-04-23] MEDS: METOPROLOL SUCC 25MG EXT REL TAB PO SCH (07:54)
[2017-04-23] MEDS: HYDROXYUREA 500 MG CAP PO SCH ×2 (07:55→13:04)
[2017-04-23] MEDS: ANASTROZOLE 1 MG TAB PO SCH (07:55)
[2017-04-23] MEDS: PANTOprazole SOD 40 MG TAB PO SCH (07:56)
[2017-04-23] MEDS: ISOSORBIDE MONONITRATE 20 MG TAB PO SCH ×2 (07:56→16:13)
[2017-04-23] MEDS: VERAPAMIL HCL 120 MG TABCR PO SCH (07:56)
[2017-04-23] MEDS: TIMOLOL MALEATE 0.5% OP SOLN 5 ML BTL OPR SCH ×2 (07:57→20:20)
[2017-04-23] MEDS: CITALOPRAM 20 MG TAB PO SCH (07:57)
[2017-04-23] MEDS: PrednisoLONE ACET 1% OP SUSP 5 ML BTL OPB SCH ×2 (07:57→20:20)
[2017-04-23] MEDS: HEPARIN SOD 5000 UNIT/0.5 ML CARP SQ SCH ×2 (08:01→20:22)
[2017-04-23] MEDS ORDERED: CARBAMAZEPINE 200 MG TAB PO SCH (09:00)
[2017-04-23 09:07] LABS: CALCIUM 8.1 mg/dl (8.5-10.1); CREATININE 1.68 mg/dl (0.60-1.20); POTASSIUM 4.4 mmol/L (3.5-5.1)
--- NOTE | 2017-04-23 12:15 | Hospitalist Progress Note ---
Hospitalist Progress Note Date of Service Apr 23, 2017. (Jennifer Pineda .ALTAGRACIA) Subjective Pt evaluation today including: conversation w/ patient, physical exam, chart review, lab review, review of inpatient medication list Voiding: voiding difficulty Ms. Abreu and is alert and appropriate this morning. She has a moist cough productive of yellow sputum, no sob, no cp. She is also experiencing urinary hesitancy. Bladder scan by nursing showed retention of 300 mls. ROS Constitutional: no chills, aches, sweats or fever Respiratory: see hpi Cardiac: no chest pain, palpitations, edema, orthopnea or lightheadedness GI: no abdominal pain, nausea, vomiting, diarrhea or constipation : see hpi Extremities: no joint pain or weakness Skin: no rash All other systems reviewed and negative (Jennifer Pineda CRNP) Medications Medications Administered Medications (Trade) Dose Ordered Sig/Ashley Route Start Time Stop Time Status Last Admin Dose Admin Sodium Chloride 500 ml @ 999 mls/hr Q31M STAT IV 04/23/17 00:15 04/23/17 00:45 DC 04/23/17 00:54 999 MLS/HR Sodium Chloride 1,000 ml @ 150 mls/hr Q6H40M ONCE IV 04/23/17 00:15 04/23/17 02:19 DC 04/23/17 01:34 150 MLS/HR Anastrozole (Arimidex Tab) 1 mg DAILY PO 04/23/17 09:00 05/23/17 08:59 04/23/17 07:55 1 MG Aspirin (Ecotrin Tab) 81 mg QAM PO 04/23/17 09:00 05/23/17 08:59 04/23/17 07:54 81 MG Citalopram Hydrobromide (celeXA TAB) 20 mg QAM PO 04/23/17 09:00 05/23/17 08:59 04/23/17 07:57 20 MG Hydroxyurea (Hydrea Cap) 500 mg BID@0900,1200 PO 04/23/17 09:00 05/23/17 08:59 04/23/17 07:55 500 MG Isosorbide Mononitrate (Ismo Tab) 20 mg BID17 PO 04/23/17 09:00 05/23/17 08:59 3/19/18 07:56 20 MG Metoprolol Succinate (Toprol Xl Tab) 25 mg DAILY PO 04/23/17 09:00 05/23/17 08:59 04/23/17 07:54 25 MG Prednisolone Acetate (Pred Forte 1% Oph Susp) 1 drops [facility] OPB 04/23/17 09:00 05/23/17 08:59 04/23/17 07:57 1 DROPS Timolol Maleate (Timoptic 0.5% Oph Soln) 1 drops AMHS OPR 04/23/17 09:00 05/23/17 08:59 04/23/17 07:57 1 DROPS Pantoprazole Sodium (Protonix Tab) 40 mg QAM PO 04/23/17 09:00 05/23/17 08:59 04/23/17 07:56 40 MG Verapamil HCl (Calan-Sr Tab) 120 mg HS PO 04/23/17 21:00 05/23/17 20:59 04/23/17 07:56 120 MG Sodium Chloride 1,000 ml @ 125 mls/hr Q8H IV 04/23/17 02:15 04/23/17 18:14 04/23/17 09:17 125 MLS/HR Heparin Sodium (Porcine) (Heparin Sq 5000 Unit/0.5ml) 5,000 unit Q12 SQ 04/23/17 09:00 05/23/17 08:59 04/23/17 08:01 5,000 UNIT Ampicillin Sodium/ Sulbactam Sodium 3000 mg/Sodium Chloride 108 ml @ 200 mls/hr Q12H IV 04/23/17 04:00 04/30/17 02:44 04/23/17 04:03 200 MLS/HR Azithromycin 500 mg/Dextrose 255 ml @ 125 mls/hr DAILY@0400 IV 04/23/17 04:00 04/30/17 03:59 04/23/17 04:53 125 MLS/HR Albuterol/ Ipratropium (Duoneb) 3 ml Q6R INH 04/23/17 09:00 05/23/17 08:59 04/23/17 07:19 3 ML (Jennifer Pineda CRNP) Objective Vital Signs Date Time Temp Pulse Resp B/P (MAP) Pulse Ox O2 Delivery O2 Flow Rate FiO2 04/23/17 11:12 36.4 61 20 118/73 (88) 98 Nasal Cannula 3.0 04/23/17 08:15 Nasal Cannula 3.0 04/23/17 07:36 36.5 63 20 113/70 (84) 100 Nasal Cannula 3.0 04/23/17 07:22 66 18 96 Nasal Cannula 3.0 04/23/17 03:30 36.4 62 20 136/74 92 Nasal Cannula 3.0 04/23/17 02:47 64 20 115/49 98 04/23/17 02:00 63 18 133/62 98 Nasal Cannula 3.0 04/23/17 01:15 65 04/23/17 00:30 63 20 137/56 98 Nasal Cannula 3.0 04/22/17 23:30 64 20 131/93 99 Nasal Cannula 4.0 04/22/17 21:56 36.7 93 18 139/83 94 Room Air 04/22/17 21:54 94 Room Air 04/22/17 21:46 63 (Jennifer Pineda CRNP) Physical Exam Notes: General: no distress Eyes: normal inspection, PERLL Respiratory: chest non tender, coarse bases bilaterally R>L, no respiratory distress, no accessory muscle use Cardiac: regular rate and rhythm, no rub or gallop, no murmur, no edema, no jvd GI/: active bowel sounds, no abd pain or tenderness, soft, non distended Extremities: normal range of motion, normal strength, non tender Neuro/Psych: alert and oriented x 3, normal mood and affect Skin: normal color, dry (Jennifer Pineda CRNP) Laboratory Results Last 24 Hours Test 04/22/17 21:30 04/22/17 21:50 04/22/17 23:20 04/23/17 02:00 White Blood Count 5.79 K/uL Red Blood Count 2.43 M/uL Hemoglobin 10.7 g/dL Hematocrit 31.6 % Mean Corpuscular Volume 130.0 fL Mean Corpuscular Hemoglobin 44.0 pg Mean Corpuscular Hemoglobin Concent 33.9 g/dl Platelet Count 276 K/uL Mean Platelet Volume 8.6 fL Neutrophils (%) (Auto) 62.0 % Lymphocytes (%) (Auto) 29.5 % Monocytes (%) (Auto) 6.0 % Eosinophils (%) (Auto) 1.9 % Basophils (%) (Auto) 0.3 % Neutrophils # (Auto) 3.58 K/uL Lymphocytes # (Auto) 1.71 K/uL Monocytes # (Auto) 0.35 K/uL Eosinophils # (Auto) 0.11 K/uL Basophils # (Auto) 0.02 K/uL RDW Standard Deviation 59.9 fL RDW Coefficient of Variation 12.7 % Immature Granulocyte % (Auto) 0.3 % Immature Granulocyte # (Auto) 0.02 K/uL Macrocytosis PRESENT Spherocytes 1+ Sodium Level 138 mmol/L Potassium Level 4.5 mmol/L Chloride Level 102 mmol/L Carbon Dioxide Level 33 mmol/L Anion Gap 3.0 mmol/L Blood Urea Nitrogen 41 mg/dl Creatinine 1.67 mg/dl Est Creatinine Clear Calc Drug Dose 23.0 ml/min Estimated GFR () 32.5 Estimated GFR (Non- 28.0 BUN/Creatinine Ratio 24.6 Random Glucose 106 mg/dl Calcium Level 8.3 mg/dl Total Bilirubin 0.3 mg/dl Aspartate Amino Transf (AST/SGOT) 19 U/L Alanine Aminotransferase (ALT/SGPT) 21 U/L Alkaline Phosphatase 82 U/L Total Creatine Kinase 49 U/L Creatine Kinase MB 0.5 ng/ml Creatine Kinase MB Ratio 1.0 Troponin I < 0.015 ng/ml Total Protein 7.7 gm/dl Albumin 3.2 gm/dl Globulin 4.5 gm/dl Albumin/Globulin Ratio 0.7 Thyroid Stimulating Hormone (TSH) 1.070 uIu/ml Prothrombin Time 9.7 SECONDS Prothromb Time International Ratio 0.9 Activated Partial Thromboplast Time 28.2 SECONDS Partial Thromboplastin Ratio 1.1 Carbamazepine (Tegretol) Level 17.3 mcg/ml Urine Color YELLOW Urine Appearance CLEAR Urine pH 5.5 Urine Specific [place] 1.019 Urine Protein 1+ Urine Glucose (UA) NEG Urine Ketones NEG Urine Occult Blood NEG Urine Nitrite NEG Urine Bilirubin NEG Urine Urobilinogen NEG Urine Leukocyte Esterase MODERATE Urine WBC (Auto) >30 /hpf Urine RBC (Auto) 0-4 /hpf Urine Hyaline Casts (Auto) 1-5 /lpf Urine Epithelial Cells (Auto) 0-5 /lpf Urine Bacteria (Auto) 1+ Test 04/23/17 08:05 04/23/17 08:33 Sodium Level 141 mmol/L Potassium Level 4.4 mmol/L Chloride Level 105 mmol/L Carbon Dioxide Level 29 mmol/L Anion Gap 6.0 mmol/L Blood Urea Nitrogen 41 mg/dl Creatinine 1.68 mg/dl Est Creatinine Clear Calc Drug Dose 22.7 ml/min Estimated GFR () 32.2 Estimated GFR (Non- 27.8 BUN/Creatinine Ratio 24.5 Random Glucose 93 mg/dl Calcium Level 8.1 mg/dl Magnesium Level 2.2 mg/dl Vitamin B12 Level 970 pg/mL Folate > 24.00 ng/mL Carbamazepine (Tegretol) Level 12.2 mcg/ml (Jennifer Pineda ., ALTAGRACIA) Assessment and Plan Ms. Abreu is an 82 year old woman here with generalized weakness likely due to multiple underlying issues. Weakness with ambulatory dysfunction - differential is broad in this pt and cause is likely multifactorial as there is evidence of infection, Carbamazepine toxicity and anemia with a high MCV. - PT/OT Carbamazepine toxicity - can cause ataxia, although she more displays just weakness - today her level is 12.2 which is just above normal - continue to hold med and provide IVF - she has not had a seizure in several years. Likely requires a dose adjustment on DC. - discussed case with neurology - recommend drawing daily levels, when patient is at least below 10, can restart carbamazepime at 200 mg bid and follow levels weekly Pneumonia - need to consider aspiration due to dysphagia/esophageal dilatation history as well as history of aspiration - She is placed on Unasyn and Zithro. - Nebs and 02 provided. - swallow eval ?UTI UA is marginally (+) - should be adequately covered by the above - we would choose to treat regardless due to sepsis history Anemia - high MCV - chronic - B12 is high at 970. It is noted that she takes Hydroxyurea which will cause macrocytosis so that the MCV in itself is not a useful indicator. - Hb is at baseline. 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 It does not appear that she is under current treatment for any underlying malignancy. SUZANNE, Chronic Kidney disease - patient's creat is 1.6 - she was 1.3 in February - has occurred with previous acute illness and is likely pre-renal - Decreased IVF to 80 ml/hr as patient taking po. 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 Discussed with ALTAGRACIA Pineda and agree with findings and plan as documented in the note. Any exceptions or clarifications are listed here: Pt confused in the evening. Has no complaints but coughs while I am there. Asks when her is picking her up and it is 8 PM. Vitals reviewed RRR no mgr upper airway inspiratory wheezes, diminished at bases Ext no edema Abd soft NT ND +BS 82 yo female with LLL PNA, UTI, acute metabolic encephalopathy, and acute hypoxic respiratory failure. -continue abx for PNA, UTI -follow cultures -will need PT/OT consults -valium for home sleep aid and may help her hospital delirium if she is used to taking it every night Documented By: Lidia Magaña (Lidia Magaña MD)
[2017-04-23] MEDS ORDERED: DIAZEPAM 5MG TAB PO ONE (19:30)
[2017-04-23] MEDS: PRAVASTATIN SOD 20 MG TAB PO SCH (20:21)
[2017-04-23] MEDS: DIAZEPAM 5MG TAB PO SCH (21:00)
[2017-04-23] MEDS ORDERED: hydrOXYzine HCL 25 MG TAB PO STA (23:24)
[2017-04-24] VITALS (11 sets, daily range): BP systolic 117–184; BP diastolic 65–81; PULSE 68–93; TEMP 36.7–38.2; O2SAT 83–99
[2017-04-24] MEDS: ALBUT/IPRATROP 3MG/0.5MG NEB 3 ML VIAL INH SCH ×4 (02:19→19:18)
[2017-04-24] MEDS: AMPICILLIN/SULBACTAM SOD INJ 3,000 MG in SODIUM CHLORIDE 0.9% 100ML 100 ML IV SCH ×2 (03:37→16:21)
[2017-04-24] MEDS: AZITHROMYCIN IV 500 MG in DEXTROSE 5% 250ML 250 ML IV SCH (04:20)
[2017-04-24] MEDS: ALBUTEROL 0.083% NEBU SOLN 3 ML VIAL INH PRN (05:47)
[2017-04-24 05:50] LABS: HEMOGLOBIN 9.1 g/dL (12.0-16.0); MEAN CELL VOLUME 131.1 fL (80-100); MEAN CORPUSCULAR HEMOGLOBIN 44.2 pg (25-34); MEAN CORPUSCULAR HGB CONC 33.7 g/dl (32-36); MEAN PLATELET VOLUME 8.5 fL (7.4-10.4); PLATELET COUNT 227 K/uL (130-400); RED CELL DISTRIBUTION WIDTH CV 13.1 % (11.5-14.5); RED CELL DISTRIBUTION WIDTH SD 62.8 fL (36.4-46.3); WHITE BLOOD COUNT 5.77 K/uL (4.8-10.8)
[2017-04-24 06:27] LABS: CALCIUM 7.6 mg/dl (8.5-10.1); CREATININE 1.15 mg/dl (0.60-1.20); POTASSIUM 4.5 mmol/L (3.5-5.1)
[2017-04-24] MEDS ORDERED: RISPERIDONE 0.5 MG TAB PO PRN (07:30)
--- NOTE | 2017-04-24 07:44 | DIAGNOSTIC IMAGING REPORT ---
CHEST ONE VIEW PORTABLE HISTORY: 82 years-old Female f/u PNA, hypoxia acute hypoxia with pneumonia COMPARISON: Chest radiograph 04/22/2017 TECHNIQUE: Portable AP view of the chest FINDINGS: Cardiac silhouette is enlarged. The patient is rotated to the right which limits the study. Atherosclerosis of the aorta. No pneumothorax. Progressive small bilateral pleural effusions with progressively worsened bibasilar consolidative opacities. There is also mild interstitial coarsening with pulmonary vascular congestion. The bones are demineralized. Likely remote appearing bilateral rib fractures. Degenerative changes of the shoulders and spine. IMPRESSION: 1. Cardiomegaly with mild pulmonary vascular congestion. 2. Small bilateral pleural effusions with progressively worsened bibasilar alveolar opacities suspicious for pneumonia. The above report was generated using voice recognition software. It may contain grammatical, syntax or spelling errors. Electronically signed by: Nik Lucas M.D. 04/24/2017 7:42 AM Dictated Date/Time: 04/24/2017 7:40 AM
[2017-04-24] MEDS ORDERED: NURSING VERBAL MED ORDER ONE (08:00)
[2017-04-24] MEDS ORDERED: FUROSEMIDE INJ 20 MG in SYRINGE 0 ML IV ONE ×2 (08:15→21:00)
[2017-04-24] MEDS: HYDROCHLOROTHIAZIDE 25 MG TAB PO SCH (08:37)
[2017-04-24] MEDS: HYDROXYUREA 500 MG CAP PO SCH ×2 (08:38→14:18)
[2017-04-24] MEDS: ANASTROZOLE 1 MG TAB PO SCH (08:38)
[2017-04-24] MEDS: HEPARIN SOD 5000 UNIT/0.5 ML CARP SQ SCH ×2 (08:39→20:52)
[2017-04-24] MEDS: ASPIRIN 81 MG ECTAB PO SCH (08:39)
[2017-04-24] MEDS: ISOSORBIDE MONONITRATE 20 MG TAB PO SCH ×2 (08:39→16:21)
[2017-04-24] MEDS: CARBAMAZEPINE 200 MG TAB PO SCH ×2 (08:40→20:43)
[2017-04-24] MEDS: PrednisoLONE ACET 1% OP SUSP 5 ML BTL OPB SCH ×2 (08:41→20:41)
[2017-04-24] MEDS: TIMOLOL MALEATE 0.5% OP SOLN 5 ML BTL OPR SCH ×2 (08:41→20:41)
[2017-04-24] MEDS: METOPROLOL SUCC 25MG EXT REL TAB PO SCH (10:25)
[2017-04-24] MEDS: CITALOPRAM 20 MG TAB PO SCH (10:25)
[2017-04-24] MEDS: PANTOprazole SOD 40 MG TAB PO SCH (10:25)
--- NOTE | 2017-04-24 14:35 | DIAGNOSTIC IMAGING REPORT ---
VIDEO SWALLOW CLINICAL HISTORY: 82 years-old Female with possible aspiration pna. Acute weakness with possible aspiration pneumonia TECHNIQUE: Video fluoroscopic evaluation of swallowing was performed in the AP and lateral projections by the speech pathology staff. The patient is fed nectar-thick and thin liquid barium, a barium coated wafer, and barium pudding. FLUOROSCOPY TIME: 2 minutes. 702 images were submitted. COMPARISON STUDY: Chest x-ray 04/24/2017. FINDINGS: Penetration without aspiration is seen within liquid and nectar thick consistencies. Mild esophageal dysmotility is noted throughout the study. No definite aspiration identified. No significant residue collection within the vallecula or piriform sinuses. Multilevel degenerative spurring about the cervical spine. IMPRESSION: 1. Laryngeal penetration without aspiration. 2. Please see the speech pathologist report for detailed findings and recommendations. Electronically signed by: Nik Lucas M.D. 04/24/2017 2:34 PM Dictated Date/Time: 04/24/2017 2:31 PM
--- NOTE | 2017-04-24 14:39 | Hospitalist Progress Note ---
Hospitalist Progress Note Date of Service Apr 24, 2017. (Jennifer Pineda .ALTAGRACIA) Subjective Pt evaluation today including: conversation w/ patient, physical exam, chart review, lab review, review of inpatient medication list Voiding: rodriguez catheter in place Ms. Harmon was apparently very confused over the night and agitated per nursing. She is calmer and back to her baseline orientation x2. She also became hypoxic, requiring 4L O2 and lasix for fluid overload evident on CXR. Today she desats to 81% on RA and continues to require 2L NC. She does not feel sob, she does have some cough. ROS Constitutional: no chills, aches, sweats or fever Respiratory: see HPI Cardiac: no chest pain, palpitations, edema, orthopnea or lightheadedness GI: no abdominal pain, nausea, vomiting, diarrhea or constipation : no dysuria or hesitancy Extremities: no joint pain or weakness Skin: no rash All other systems reviewed and negative (Jennifer Pineda CRNP) Medications Medications Administered Medications (Trade) Dose Ordered Sig/Ashley Route Start Time Stop Time Status Last Admin Dose Admin Sodium Chloride 500 ml @ 999 mls/hr Q31M STAT IV 04/23/17 00:15 04/23/17 00:45 DC 04/23/17 00:54 999 MLS/HR Sodium Chloride 1,000 ml @ 150 mls/hr Q6H40M ONCE IV 04/23/17 00:15 04/23/17 02:19 DC 04/23/17 01:34 150 MLS/HR Anastrozole (Arimidex Tab) 1 mg DAILY PO 04/23/17 09:00 05/23/17 08:59 04/24/17 08:38 1 MG Aspirin (Ecotrin Tab) 81 mg QAM PO 04/23/17 09:00 05/23/17 08:59 04/24/17 08:39 81 MG Citalopram Hydrobromide (celeXA TAB) 20 mg QAM PO 04/23/17 09:00 05/23/17 08:59 04/24/17 10:25 20 MG Hydroxyurea (Hydrea Cap) 500 mg BID@0900,1200 PO 04/23/17 09:00 05/23/17 08:59 04/24/17 14:18 500 MG Isosorbide Mononitrate (Ismo Tab) 20 mg BID17 PO 04/23/17 09:00 05/23/17 08:59 04/24/17 08:39 20 MG Metoprolol Succinate (Toprol Xl Tab) 25 mg DAILY PO 04/23/17 09:00 05/23/17 08:59 04/24/17 10:25 25 MG Pravastatin Sodium (Pravachol Tab) 20 mg HS PO 04/23/17 21:00 05/23/17 20:59 04/23/17 20:21 20 MG Prednisolone Acetate (Pred Forte 1% Oph Susp) 1 drops AMHS OPB 04/23/17 09:00 05/23/17 08:59 04/24/17 08:41 1 DROPS Timolol Maleate (Timoptic 0.5% Oph Soln) 1 drops AMHS OPR 04/23/17 09:00 05/23/17 08:59 04/24/17 08:41 1 DROPS Pantoprazole Sodium (Protonix Tab) 40 mg QAM PO 04/23/17 09:00 05/23/17 08:59 04/24/17 10:25 40 MG Verapamil HCl (Calan-Sr Tab) 120 mg HS PO 04/23/17 21:00 05/23/17 20:59 04/23/17 07:56 120 MG Sodium Chloride 1,000 ml @ 80 mls/hr [id number] IV 04/23/17 02:15 04/24/17 07:25 DC 04/23/17 20:20 80 MLS/HR Heparin Sodium (Porcine) (Heparin Sq 5000 Unit/0.5ml) 5,000 unit Q12 SQ 04/23/17 09:00 05/23/17 08:59 04/24/17 08:39 5,000 UNIT Ondansetron HCl (Zofran Inj) 4 mg Q6H PRN IV 04/23/17 02:15 05/23/17 02:14 04/23/17 22:19 4 MG Ampicillin Sodium/ Sulbactam Sodium 3000 mg/Sodium Chloride 108 ml @ 200 mls/hr Q12H IV 04/23/17 04:00 04/30/17 02:44 04/24/17 03:37 200 MLS/HR Azithromycin 500 mg/Dextrose 255 ml @ 125 mls/hr DAILY@0400 IV 04/23/17 04:00 04/30/17 03:59 04/24/17 04:20 125 MLS/HR Albuterol/ Ipratropium (Duoneb) 3 ml Q6R INH 04/23/17 09:00 05/23/17 08:59 04/24/17 07:11 3 ML Albuterol Sulfate (Ventolin 0.083% 2.5MG/3ML Neb) 2.5 mg Q4H PRN INH 04/23/17 06:00 05/23/17 05:59 04/24/17 05:47 2.5 MG Diazepam (Valium Tab) 5 mg ONE ONCE PO 04/23/17 19:30 04/23/17 19:43 DC 04/23/17 20:17 5 MG Hydroxyzine HCl (Vistaril Tab) 25 mg NOW STAT PO 04/23/17 23:24 04/23/17 23:32 DC 04/24/17 00:06 25 MG Hydrochlorothiazide (Hydrochlorothiazide Tab) 12.5 mg QAM PO 04/24/17 09:00 05/24/17 08:59 04/24/17 08:37 12.5 MG Carbamazepine (Tegretol Tab) 200 mg BID PO 04/24/17 09:00 05/24/17 08:59 04/24/17 08:40 200 MG Furosemide 20 mg/ Syringe 2 ml @ 4 mls/min 0815 ONCE IV 04/24/17 08:15 04/24/17 08:23 DC 04/24/17 08:40 4 MLS/MIN (Jennifer Pineda, ALTAGRACIA) Objective Vital Signs Date Time Temp Pulse Resp B/P (MAP) Pulse Ox O2 Delivery O2 Flow Rate FiO2 04/24/17 11:53 Nasal Cannula 4.0 04/24/17 11:09 37.0 20 136/74 (94) 94 Nasal Cannula 4.0 04/24/17 09:13 Nasal Cannula 4.0 04/24/17 08:00 37.6 90 18 121/71 (88) 99 Oxymask 4.0 04/24/17 08:00 Nasal Cannula 4.0 04/24/17 07:18 93 24 83 Mask 4.0 04/24/17 05:47 93 24 94 Mask 4.0 04/24/17 04:00 36.7 93 22 148/73 (98) 94 Oxymask 4.0 04/24/17 04:00 Nasal Cannula 2.0 04/24/17 00:24 36.9 68 20 184/78 (113) 95 Nasal Cannula 3.0 04/24/17 00:00 Nasal Cannula 2.0 04/23/17 21:25 37.5 65 20 158/76 (103) 92 04/23/17 20:00 Nasal Cannula 2.0 04/23/17 19:50 92 22 94 Nasal Cannula 3.0 04/23/17 19:43 36.0 76 22 171/76 (107) 96 Nasal Cannula 3.0 04/23/17 16:15 51 143/81 (101) 04/23/17 16:00 Nasal Cannula 2.0 04/23/17 15:10 36.7 63 20 126/72 (90) 96 Nasal Cannula 3.0 04/23/17 14:31 96 22 88 Nasal Cannula 3.0 (Jennifer Pineda CRNP) Physical Exam Notes: General: no distress Eyes: normal inspection, PERLL Respiratory: chest non tender, coarse bilateral bases with expiratory wheezes throughout, no respiratory distress, no accessory muscle use Cardiac: regular rate and rhythm, no rub or gallop, no murmur, no edema, no jvd GI/: active bowel sounds, no abd pain or tenderness, soft, non distended Extremities: normal range of motion, normal strength, non tender Neuro/Psych: drowsy and oriented to person and place, normal mood and affect Skin: normal color, dry (Jennifer Pineda CRNP) Laboratory Results Last 24 Hours Test 04/24/17 05:19 White Blood Count 5.77 K/uL Red Blood Count 2.06 M/uL Hemoglobin 9.1 g/dL Hematocrit 27.0 % Mean Corpuscular Volume 131.1 fL Mean Corpuscular Hemoglobin 44.2 pg Mean Corpuscular Hemoglobin Concent 33.7 g/dl RDW Standard Deviation 62.8 fL RDW Coefficient of Variation 13.1 % Platelet Count 227 K/uL Mean Platelet Volume 8.5 fL Sodium Level 138 mmol/L Potassium Level 4.5 mmol/L Chloride Level 105 mmol/L Carbon Dioxide Level 26 mmol/L Anion Gap 7.0 mmol/L Blood Urea Nitrogen 34 mg/dl Creatinine 1.15 mg/dl Est Creatinine Clear Calc Drug Dose 33.1 ml/min Estimated GFR () 51.0 Estimated GFR (Non- 44.0 BUN/Creatinine Ratio 29.3 Random Glucose 164 mg/dl Calcium Level 7.6 mg/dl Carbamazepine (Tegretol) Level 6.8 mcg/ml (Jennifer Pineda ., ALTAGRACIA) Assessment and Plan Ms. Abreu is an 82 year old woman here with generalized weakness likely due to multiple underlying issues. Weakness with ambulatory dysfunction - differential is broad in this pt and cause is likely multifactorial as there is evidence of infection, Carbamazepine toxicity and anemia with a high MCV. - PT/OT Carbamazepine toxicity - can cause ataxia, although she more displays just weakness - today her level is 6 - per neuro rec, patient's carbamazepine restarted today at 200 mg bid. Will follow levels weekly - she has not had a seizure in several years. Pneumonia/acute hypoxic respiratory failure - need to consider aspiration due to dysphagia/esophageal dilatation history as well as history of aspiration - She is placed on Unasyn and Zithro. - Nebs and 02 provided. - patient refused bedside swallow eval but was agreeable to video swallow which we will order - last echo in 2016 did not show any heart failure however patient did have fluid overload over the night following IVF - patient responded very well to one dose of lasix this morning, will give another tonight. Restarted HCTZ ?UTI UA is marginally (+) - should be adequately covered by the above - we would choose to treat regardless due to sepsis history Anemia - high MCV - chronic - B12 is high at 970. It is noted that she takes Hydroxyurea which will cause macrocytosis so that the MCV in itself is not a useful indicator. - Hb is at baseline. 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 It does not appear that she is under current treatment for any underlying malignancy. 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 Discussed with ALTAGRACIA Pineda and agree with findings and plan as documented in the note. Any exceptions or clarifications are listed here: COnfusion noted overnight, today much improved mental status. Hypoxia improved with diuresis today Says she does have a h/o asthma but not on inhalers at home. Spiked a low grade fever today that was rechecked and had come down Vitals reviewed NAD, alert, awake RRR no mgr upper airway inspiratory wheezes and rhonchi, decreased BS at bases Ext no edema Abd soft NT ND +BS 82 yo female with LLL PNA, UTI, acute metabolic encephalopathy, and acute hypoxic respiratory failure. Encephalopathy improved -continue diuresis with IV lasix as above -with fever today, ordered flutter valve, change abx to Levaquin only- Aspiration ruled out on Video swallow so no need for Unasyn, Levaquin should cover for CAP and UTI -follow cultures-check BCxs now -Risperdal for agitation as needed Documented By: Lidia Magaña (Lidia Magaña MD)
[2017-04-24] MEDS: ACETAMINOPHEN 325 MG TAB PO PRN (16:22)
[2017-04-24 19:21] LABS: INFLUENZA A PCR Neg for Influ A (NEG); INFLUENZA B PCR Neg for Influ B (NEG)
[2017-04-24] MEDS: LEVOFLOXACIN / D5W 750 MG in PREMIXED IN D5W 150 ML IV SCH (20:40)
[2017-04-24] MEDS: DIAZEPAM 5MG TAB PO SCH (20:41)
[2017-04-24] MEDS: VERAPAMIL HCL 120 MG TABCR PO SCH (20:42)
[2017-04-24] MEDS: PRAVASTATIN SOD 20 MG TAB PO SCH (20:43)
[2017-04-25] VITALS (13 sets, daily range): BP systolic 119–179; BP diastolic 55–81; PULSE 71–116; TEMP 36.3–37.3; O2SAT 73–98
[2017-04-25] MEDS: ALBUT/IPRATROP 3MG/0.5MG NEB 3 ML VIAL INH SCH ×4 (01:46→19:29)
[2017-04-25 05:50] LABS: HEMATOCRIT 26.6 % (37-47); HEMOGLOBIN 9.3 g/dL (12.0-16.0); MEAN CELL VOLUME 127.9 fL (80-100); MEAN CORPUSCULAR HEMOGLOBIN 44.7 pg (25-34); MEAN PLATELET VOLUME 8.5 fL (7.4-10.4); PLATELET COUNT 214 K/uL (130-400); RED CELL DISTRIBUTION WIDTH CV 12.6 % (11.5-14.5); RED CELL DISTRIBUTION WIDTH SD 58.9 fL (36.4-46.3); WHITE BLOOD COUNT 4.37 K/uL (4.8-10.8)
[2017-04-25 06:19] LABS: CALCIUM 8.2 mg/dl (8.5-10.1); CREATININE 1.18 mg/dl (0.60-1.20)
[2017-04-25] MEDS: TIMOLOL MALEATE 0.5% OP SOLN 5 ML BTL OPR SCH ×2 (08:03→20:44)
[2017-04-25] MEDS: LISINOPRIL 40 MG TAB PO SCH (08:03)
[2017-04-25] MEDS: HYDROCHLOROTHIAZIDE 25 MG TAB PO SCH (08:04)
[2017-04-25] MEDS: CITALOPRAM 20 MG TAB PO SCH (08:04)
[2017-04-25] MEDS: ASPIRIN 81 MG ECTAB PO SCH (08:04)
[2017-04-25] MEDS: METOPROLOL SUCC 25MG EXT REL TAB PO SCH (08:05)
[2017-04-25] MEDS: PANTOprazole SOD 40 MG TAB PO SCH (08:05)
[2017-04-25] MEDS: ISOSORBIDE MONONITRATE 20 MG TAB PO SCH ×2 (08:07→16:34)
[2017-04-25] MEDS: PrednisoLONE ACET 1% OP SUSP 5 ML BTL OPB SCH ×2 (08:08→20:44)
[2017-04-25] MEDS: CARBAMAZEPINE 200 MG TAB PO SCH ×2 (08:09→20:46)
[2017-04-25] MEDS: HYDROXYUREA 500 MG CAP PO SCH ×2 (08:11→12:04)
[2017-04-25] MEDS: ANASTROZOLE 1 MG TAB PO SCH (08:11)
[2017-04-25] MEDS: HEPARIN SOD 5000 UNIT/0.5 ML CARP SQ SCH ×2 (08:12→20:47)
[2017-04-25] MEDS: ALBUTEROL 0.083% NEBU SOLN 3 ML VIAL INH PRN (10:43)
[2017-04-25] MEDS ORDERED: FUROSEMIDE INJ 40 MG in SYRINGE 0 ML IV ONE (14:15)
--- NOTE | 2017-04-25 14:22 | Hospitalist Progress Note ---
Hospitalist Progress Note Date of Service Apr 25, 2017. (Jennifer Pineda .ALTAGRACIA) Subjective Pt evaluation today including: conversation w/ patient, conversation w/ family , physical exam, chart review, lab review, review of inpatient medication list Voiding: rodriguez catheter in place Ms. Harmon is in good spirits with her at bedside however she is oriented only to herself. She denies any complaints. It appears from nursing notes that she was quite hypoxic with getting up to have a bowel movement this morning, desating into the 70s. She continues to require 2L NC at rest ROS Constitutional: no chills, aches, sweats or fever Respiratory: no sob,cough, sputum, or wheezing Cardiac: no chest pain, palpitations, edema, orthopnea or lightheadedness GI: no abdominal pain, nausea, vomiting, diarrhea or constipation : no dysuria or hesitancy Extremities: no joint pain or weakness Skin: no rash All other systems reviewed and negative (Jennifer Pineda CRNP) Medications Medications Administered Medications (Trade) Dose Ordered Sig/Ashley Route Start Time Stop Time Status Last Admin Dose Admin Sodium Chloride 500 ml @ 999 mls/hr Q31M STAT IV 04/23/17 00:15 04/23/17 00:45 DC 04/23/17 00:54 999 MLS/HR Sodium Chloride 1,000 ml @ 150 mls/hr Q6H40M ONCE IV 04/23/17 00:15 04/23/17 02:19 DC 04/23/17 01:34 150 MLS/HR Anastrozole (Arimidex Tab) 1 mg DAILY PO 04/23/17 09:00 05/23/17 08:59 04/25/17 08:11 1 MG Aspirin (Ecotrin Tab) 81 mg QAM PO 04/23/17 09:00 05/23/17 08:59 04/25/17 08:04 81 MG Citalopram Hydrobromide (celeXA TAB) 20 mg QAM PO 04/23/17 09:00 05/23/17 08:59 04/25/17 08:04 20 MG Diazepam (Valium Tab) 5 mg HS PO 04/23/17 21:00 05/23/17 20:59 04/24/17 20:41 5 MG Hydroxyurea (Hydrea Cap) 500 mg BID@0900,1200 PO 04/23/17 09:00 05/23/17 08:59 04/25/17 12:04 500 MG Isosorbide Mononitrate (Ismo Tab) 20 mg BID17 PO 04/23/17 09:00 05/23/17 08:59 04/25/17 08:07 20 MG Metoprolol Succinate (Toprol Xl Tab) 25 mg DAILY PO 04/23/17 09:00 05/23/17 08:59 04/25/17 08:05 25 MG Pravastatin Sodium (Pravachol Tab) 20 mg HS PO 04/23/17 21:00 05/23/17 20:59 04/24/17 20:43 20 MG Prednisolone Acetate (Pred Forte 1% Oph Susp) 1 drops AMHS OPB 04/23/17 09:00 05/23/17 08:59 04/25/17 08:08 1 DROPS Timolol Maleate (Timoptic 0.5% Oph Soln) 1 drops AMHS OPR 04/23/17 09:00 05/23/17 08:59 04/25/17 08:03 1 DROPS Pantoprazole Sodium (Protonix Tab) 40 mg QAM PO 04/23/17 09:00 05/23/17 08:59 04/25/17 08:05 40 MG Verapamil HCl (Calan-Sr Tab) 120 mg HS PO 04/23/17 21:00 05/23/17 20:59 04/24/17 20:42 120 MG Sodium Chloride 1,000 ml @ 80 mls/hr [id number] IV 04/23/17 02:15 04/24/17 07:25 DC 04/23/17 20:20 80 MLS/HR Heparin Sodium (Porcine) (Heparin Sq 5000 Unit/0.5ml) 5,000 unit Q12 SQ 04/23/17 09:00 05/23/17 08:59 04/25/17 08:12 5,000 UNIT Acetaminophen (Tylenol Tab) 650 mg Q4H PRN PO 04/23/17 02:15 05/23/17 02:14 04/24/17 16:22 650 MG Ondansetron HCl (Zofran Inj) 4 mg Q6H PRN IV 04/23/17 02:15 05/23/17 02:14 04/23/17 22:19 4 MG Ampicillin Sodium/ Sulbactam Sodium 3000 mg/Sodium Chloride 108 ml @ 200 mls/hr Q12H IV 04/23/17 04:00 04/24/17 18:18 DC 04/24/17 16:21 200 MLS/HR Azithromycin 500 mg/Dextrose 255 ml @ 125 mls/hr DAILY@0400 IV 04/23/17 04:00 04/24/17 18:11 DC 04/24/17 04:20 125 MLS/HR Albuterol/ Ipratropium (Duoneb) 3 ml Q6R INH 04/23/17 09:00 05/23/17 08:59 04/25/17 14:02 3 ML Albuterol Sulfate (Ventolin 0.083% 2.5MG/3ML Neb) 2.5 mg Q4H PRN INH 04/23/17 06:00 05/23/17 05:59 04/24/17 05:47 2.5 MG Diazepam (Valium Tab) 5 mg ONE ONCE PO 04/23/17 19:30 04/23/17 19:43 DC 04/23/17 20:17 5 MG Hydroxyzine HCl (Vistaril Tab) 25 mg NOW STAT PO 04/23/17 23:24 04/23/17 23:32 DC 04/24/17 00:06 25 MG Risperidone (Risperdal Tab) 0.25 mg HS PRN PO 04/24/17 07:30 05/24/17 07:29 04/24/17 22:07 0.25 MG Hydrochlorothiazide (Hydrochlorothiazide Tab) 12.5 mg QAM PO 04/24/17 09:00 05/24/17 08:59 04/25/17 08:04 12.5 MG Carbamazepine (Tegretol Tab) 200 mg BID PO 04/24/17 09:00 05/24/17 08:59 04/25/17 08:09 200 MG Furosemide 20 mg/ Syringe 2 ml @ 4 mls/min 0815 ONCE IV 04/24/17 08:15 04/24/17 08:23 DC 04/24/17 08:40 4 MLS/MIN Furosemide 20 mg/ Syringe 2 ml @ 4 mls/min ONE ONCE IV 04/24/17 21:00 04/24/17 21:01 DC 04/24/17 20:41 4 MLS/MIN Lisinopril (Zestril Tab) 40 mg QAM PO 04/25/17 09:00 05/25/17 08:59 04/25/17 08:03 40 MG Levofloxacin 750 mg/Prmx 150 ml @ 100 mls/hr Q48H IV 04/24/17 19:00 05/01/17 18:59 04/24/17 20:40 100 MLS/HR (Jennifer Pineda CRNP) Objective Vital Signs Date Time Temp Pulse Resp B/P (MAP) Pulse Ox O2 Delivery O2 Flow Rate FiO2 04/25/17 14:02 84 20 90 Nasal Cannula 4.0 04/25/17 12:00 Nasal Cannula 2.0 04/25/17 11:20 37.2 91 16 121/69 (86) 90 04/25/17 09:37 89 28 119/74 (89) 95 Oxymask 5.0 04/25/17 09:15 83 32 139/55 (83) 73 Nasal Cannula 2.0 04/25/17 08:00 98 153/80 (104) 04/25/17 08:00 Nasal Cannula 2.0 04/25/17 07:15 116 26 90 Nasal Cannula 2.0 04/25/17 07:04 37.3 98 20 176/80 (112) 90 04/25/17 04:00 Nasal Cannula 2.0 04/25/17 03:35 37.3 96 20 127/69 (88) 94 Nasal Cannula 2.0 04/25/17 01:49 87 24 93 Nasal Cannula 2.0 04/25/17 00:00 Nasal Cannula 2.0 04/24/17 23:25 37.2 84 20 117/72 (87) 94 Nasal Cannula 3.0 04/24/17 20:00 Room Air 04/24/17 19:28 37.2 81 24 133/81 (98) 98 Nasal Cannula 2.0 04/24/17 19:21 83 20 98 Nasal Cannula 2.0 04/24/17 16:25 37.6 04/24/17 16:00 Nasal Cannula 2.0 04/24/17 15:02 38.2 81 16 129/65 (86) 92 Nasal Cannula 2.0 (Jennifer Pineda CRNP) Physical Exam Notes: General: no distress Eyes: normal inspection, PERLL Respiratory: chest non tender, coarse bilaterally throughout, mildly labored breathing, no accessory muscle use Cardiac: regular rate and rhythm, no rub or gallop, no murmur, no edema GI/: active bowel sounds, no abd pain or tenderness, soft, non distended Extremities: normal range of motion, normal strength, non tender Neuro/Psych: alert and oriented x 3, normal mood and affect Skin: normal color, dry (Jennifer Pineda CRNP) Laboratory Results Last 24 Hours Test 04/24/17 18:20 04/25/17 05:21 Influenza Type A (RT-PCR) Neg for Influ A Influenza Type B (RT-PCR) Neg for Influ B White Blood Count 4.37 K/uL Red Blood Count 2.08 M/uL Hemoglobin 9.3 g/dL Hematocrit 26.6 % Mean Corpuscular Volume 127.9 fL Mean Corpuscular Hemoglobin 44.7 pg Mean Corpuscular Hemoglobin Concent 35.0 g/dl RDW Standard Deviation 58.9 fL RDW Coefficient of Variation 12.6 % Platelet Count 214 K/uL Mean Platelet Volume 8.5 fL Sodium Level 139 mmol/L Potassium Level 4.0 mmol/L Chloride Level 103 mmol/L Carbon Dioxide Level 29 mmol/L Anion Gap 6.0 mmol/L Blood Urea Nitrogen 30 mg/dl Creatinine 1.18 mg/dl Est Creatinine Clear Calc Drug Dose 32.5 ml/min Estimated GFR () 49.4 Estimated GFR (Non- 42.6 BUN/Creatinine Ratio 25.3 Random Glucose 97 mg/dl Calcium Level 8.2 mg/dl (Jennifer Pineda CRNP) Assessment and Plan Ms. Abreu is an 82 year old woman here with generalized weakness likely due to multiple underlying issues. Weakness with ambulatory dysfunction - differential is broad in this pt and cause is likely multifactorial as there is evidence of infection, Carbamazepine toxicity and anemia with a high MCV. - PT/OT Carbamazepine toxicity - can cause ataxia, although she more displays just weakness - today her level is 6 - per neuro rec, patient's carbamazepine restarted 04/24 at 200 mg bid. Will follow levels weekly - she has not had a seizure in several years. Pneumonia/acute hypoxic respiratory failure - need to consider aspiration due to dysphagia/esophageal dilatation history as well as history of aspiration - Changed from Unasyn and Zithro to Levaquin as patient's video swallow did not show aspiration - Nebs and 02 provided. - last echo in 2016 did not show any heart failure however patient did have fluid overload following IVF - will give an additional dose of lasix today and continue to monitor renal function and respiratory status - 125 mg Solu-Medrol now and then 60 q8h ?UTI UA is marginally (+) - should be adequately covered by the above - we chose to treat regardless due to sepsis history Anemia - high MCV - chronic - B12 is high at 970. It is noted that she takes Hydroxyurea which will cause macrocytosis so that the MCV in itself is not a useful indicator. - Hb is at baseline. 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 It does not appear that she is under current treatment for any underlying malignancy. 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 Discussed with ALTAGRACIA Pineda and agree with findings and plan as documented in the note. Any exceptions or clarifications are listed here: No further fevers today. Denies shortness of breath, cough, or chest pain. RN reports that she is coughing though. The patient is still confused at time as per nursing staff. Patient still has profound hypoxia at times. She reports that she did smoke for many years but cannot recall when she quit. 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 She also was noted to have severe COPD on PFTs many years ago. Despite this, I do not see any notes from pulmonology that she has seen him as an outpatient since 2014, and she is not on any maintenance inhalers as an outpatient. She continues with diffuse wheezing today as well and was started on IV steroids. Vitals reviewed NAD, alert, awake RRR no mgr Diffuse inspiratory and expiratory wheezes and rhonchi with decreased BS at bases Ext no edema Abd soft NT ND +BS 82 yo female with a history of severe COPD, lung adenocarcinoma status post right upper lobectomy, left-sided stage I breast cancer, nephrolithiasis, hypertension, cognitive impairment, history of CVA, CKD stage III, chronic macrocytic anemia, essential thrombocytosis, and glaucoma, here with generalized weakness, found to have LLL PNA, UTI, acute metabolic encephalopathy , and acute hypoxic respiratory failure. Also with acute exacerbation of COPD. Encephalopathy improved, remains with baseline dementia No further fevers, may have been atelectasis -Continues with diffuse wheezing and hypoxia-now that her history has been clarified with history of severe COPD and smoking, makes more sense that she needs more aggressive treatment for this -Started IV steroids today, continue bronchodilators, on discharge should be started on Spiriva and Symbicort -continue diuresis with IV lasix as above -Continue Levaquin 7 day course -Follow blood cultures-NGTD -Check chest x-ray PA and LAT in the morning, if not improving, consider CT of the chest given her history of breast and lung cancer -Risperdal for agitation as needed Documented By: Lidia Magaña (Lidia Magaña MD)
[2017-04-25] MEDS ORDERED: METHYLPREDNISOLONE IV 125 MG in SYRINGE 0 ML IV ONE (16:15)
[2017-04-25] MEDS: DIAZEPAM 5MG TAB PO SCH (20:45)
[2017-04-25] MEDS: VERAPAMIL HCL 120 MG TABCR PO SCH (20:46)
[2017-04-25] MEDS: PRAVASTATIN SOD 20 MG TAB PO SCH (20:46)
[2017-04-25] MEDS: METHYLPREDNISOLONE IV 60 MG in SYRINGE 0 ML IV SCH (23:50)
[2017-04-26] VITALS (10 sets, daily range): BP systolic 131–165; BP diastolic 69–87; PULSE 68–88; TEMP 36.5–37.3; O2SAT 88–100
[2017-04-26] MEDS: ALBUT/IPRATROP 3MG/0.5MG NEB 3 ML VIAL INH SCH ×4 (02:07→19:49)
[2017-04-26 06:18] LABS: HEMATOCRIT 26.3 % (37-47); HEMOGLOBIN 9.1 g/dL (12.0-16.0); MEAN CELL VOLUME 126.4 fL (80-100); MEAN CORPUSCULAR HEMOGLOBIN 43.8 pg (25-34); MEAN CORPUSCULAR HGB CONC 34.6 g/dl (32-36); MEAN PLATELET VOLUME 8.9 fL (7.4-10.4); PLATELET COUNT 245 K/uL (130-400); RED CELL DISTRIBUTION WIDTH CV 12.3 % (11.5-14.5); RED CELL DISTRIBUTION WIDTH SD 56.3 fL (36.4-46.3); WHITE BLOOD COUNT 2.45 K/uL (4.8-10.8)
[2017-04-26 06:54] LABS: CALCIUM 8.5 mg/dl (8.5-10.1); CREATININE 1.26 mg/dl (0.60-1.20); POTASSIUM 4.1 mmol/L (3.5-5.1)
--- NOTE | 2017-04-26 08:41 | DIAGNOSTIC IMAGING REPORT ---
CHEST 2 VIEWS ROUTINE CLINICAL HISTORY: 82 years-old Female presenting with f/u PNA, hypoxia. TECHNIQUE: PA and lateral views of the chest were obtained. COMPARISON: 04/24/2017. FINDINGS: Rightward mediastinal shift, unchanged. Atherosclerosis of the aortic arch. Cardiac silhouette mildly enlarged. Persistent pulmonary vascular prominence. Prominence of the right hilum may be due to mediastinal shift. Improved aeration of the left lung base with decreased left basilar opacity. Trace left pleural effusion persists. Unchanged aeration and distortion of the right lung. A suture margin is noted in the region of the right hilum. A small pleural effusion or pleural thickening noted. No pneumothorax. Osteopenia may be present. Upper abdomen normal. IMPRESSION: 1. Improved aeration of the left lung base consistent with improving pneumonia. Trace left parapneumonic effusion persists. 2. Unchanged aeration and distortion of the right lung, likely postsurgical change. Electronically signed by: Kam Pereira M.D. 04/26/2017 8:40 AM Dictated Date/Time: 04/26/2017 8:35 AM
[2017-04-26] MEDS: ANASTROZOLE 1 MG TAB PO SCH (08:43)
[2017-04-26] MEDS: HYDROXYUREA 500 MG CAP PO SCH ×2 (08:43→12:35)
[2017-04-26] MEDS: HEPARIN SOD 5000 UNIT/0.5 ML CARP SQ SCH ×2 (08:43→21:06)
[2017-04-26] MEDS: PANTOprazole SOD 40 MG TAB PO SCH (08:44)
[2017-04-26] MEDS: LISINOPRIL 40 MG TAB PO SCH (08:44)
[2017-04-26] MEDS: CITALOPRAM 20 MG TAB PO SCH (08:45)
[2017-04-26] MEDS: METOPROLOL SUCC 25MG EXT REL TAB PO SCH (08:45)
[2017-04-26] MEDS: HYDROCHLOROTHIAZIDE 25 MG TAB PO SCH (08:45)
[2017-04-26] MEDS: ISOSORBIDE MONONITRATE 20 MG TAB PO SCH ×2 (08:46→17:01)
[2017-04-26] MEDS: CARBAMAZEPINE 200 MG TAB PO SCH ×2 (08:46→21:07)
[2017-04-26] MEDS: ASPIRIN 81 MG ECTAB PO SCH (08:46)
[2017-04-26] MEDS: TIMOLOL MALEATE 0.5% OP SOLN 5 ML BTL OPR SCH ×2 (08:47→21:06)
[2017-04-26] MEDS: PrednisoLONE ACET 1% OP SUSP 5 ML BTL OPB SCH ×2 (08:47→21:06)
[2017-04-26] MEDS: METHYLPREDNISOLONE IV 60 MG in SYRINGE 0 ML IV SCH ×3 (08:47→23:11)
--- NOTE | 2017-04-26 13:24 | Hospitalist Progress Note ---
Hospitalist Progress Note Date of Service Apr 26, 2017. (Jennifer Pineda ., ALTAGRACIA) Subjective Pt evaluation today including: conversation w/ patient, physical exam, chart review, lab review, review of inpatient medication list Voiding: no voiding problems Ms. Harmon is improving slowly. Today she is sitting up and eating with her beside, more oriented than yesterday. She denies any complaints though she does have a moist cough. ROS Constitutional: no chills, aches, sweats or fever Respiratory: no sob,cough, sputum, or wheezing Cardiac: no chest pain, palpitations, edema, orthopnea or lightheadedness GI: no abdominal pain, nausea, vomiting, diarrhea or constipation : no dysuria or hesitancy Extremities: no joint pain or weakness Skin: no rash All other systems reviewed and negative (Jennifer Pineda .ALTAGRACIA) Medications Medications Administered Medications (Trade) Dose Ordered Sig/Ashley Route Start Time Stop Time Status Last Admin Dose Admin Sodium Chloride 500 ml @ 999 mls/hr Q31M STAT IV 04/23/17 00:15 04/23/17 00:45 DC 04/23/17 00:54 999 MLS/HR Sodium Chloride 1,000 ml @ 150 mls/hr Q6H40M ONCE IV 04/23/17 00:15 04/23/17 02:19 DC 04/23/17 01:34 150 MLS/HR Anastrozole (Arimidex Tab) 1 mg DAILY PO 04/23/17 09:00 05/23/17 08:59 04/26/17 08:43 1 MG Aspirin (Ecotrin Tab) 81 mg QAM PO 04/23/17 09:00 05/23/17 08:59 04/26/17 08:46 81 MG Citalopram Hydrobromide (celeXA TAB) 20 mg QAM PO 04/23/17 09:00 05/23/17 08:59 04/26/17 08:45 20 MG Diazepam (Valium Tab) 5 mg HS PO 04/23/17 21:00 05/23/17 20:59 04/25/17 20:45 5 MG Hydroxyurea (Hydrea Cap) 500 mg BID@0900,1200 PO 04/23/17 09:00 05/23/17 08:59 04/26/17 12:35 500 MG Isosorbide Mononitrate (Ismo Tab) 20 mg BID17 PO 04/23/17 09:00 05/23/17 08:59 04/26/17 08:46 20 MG Metoprolol Succinate (Toprol Xl Tab) 25 mg DAILY PO 04/23/17 09:00 05/23/17 08:59 04/26/17 08:45 25 MG Pravastatin Sodium (Pravachol Tab) 20 mg HS PO 04/23/17 21:00 05/23/17 20:59 04/25/17 20:46 20 MG Prednisolone Acetate (Pred Forte 1% Oph Susp) 1 drops [facility] OPB 04/23/17 09:00 05/23/17 08:59 04/26/17 08:47 1 DROPS Timolol Maleate (Timoptic 0.5% Oph Soln) 1 drops [facility] OPR 04/23/17 09:00 05/23/17 08:59 04/26/17 08:47 1 DROPS Pantoprazole Sodium (Protonix Tab) 40 mg QAM PO 04/23/17 09:00 05/23/17 08:59 04/26/17 08:44 40 MG Verapamil HCl (Calan-Sr Tab) 120 mg HS PO 04/23/17 21:00 05/23/17 20:59 04/25/17 20:46 120 MG Sodium Chloride 1,000 ml @ 80 mls/hr [id number] IV 04/23/17 02:15 04/24/17 07:25 DC 04/23/17 20:20 80 MLS/HR Heparin Sodium (Porcine) (Heparin Sq 5000 Unit/0.5ml) 5,000 unit Q12 SQ 04/23/17 09:00 05/23/17 08:59 04/26/17 08:43 5,000 UNIT Acetaminophen (Tylenol Tab) 650 mg Q4H PRN PO 04/23/17 02:15 05/23/17 02:14 04/24/17 16:22 650 MG Ondansetron HCl (Zofran Inj) 4 mg Q6H PRN IV 04/23/17 02:15 05/23/17 02:14 04/23/17 22:19 4 MG Ampicillin Sodium/ Sulbactam Sodium 3000 mg/Sodium Chloride 108 ml @ 200 mls/hr Q12H IV 04/23/17 04:00 04/24/17 18:18 DC 04/24/17 16:21 200 MLS/HR Azithromycin 500 mg/Dextrose 255 ml @ 125 mls/hr DAILY@0400 IV 04/23/17 04:00 04/24/17 18:11 DC 04/24/17 04:20 125 MLS/HR Albuterol/ Ipratropium (Duoneb) 3 ml Q6R INH 04/23/17 09:00 05/23/17 08:59 04/26/17 07:19 3 ML Albuterol Sulfate (Ventolin 0.083% 2.5MG/3ML Neb) 2.5 mg Q4H PRN INH 04/23/17 06:00 05/23/17 05:59 04/24/17 05:47 2.5 MG Diazepam (Valium Tab) 5 mg ONE ONCE PO 04/23/17 19:30 04/23/17 19:43 DC 04/23/17 20:17 5 MG Hydroxyzine HCl (Vistaril Tab) 25 mg NOW STAT PO 04/23/17 23:24 04/23/17 23:32 DC 04/24/17 00:06 25 MG Risperidone (Risperdal Tab) 0.25 mg HS PRN PO 04/24/17 07:30 05/24/17 07:29 04/24/17 22:07 0.25 MG Hydrochlorothiazide (Hydrochlorothiazide Tab) 12.5 mg QAM PO 04/24/17 09:00 05/24/17 08:59 04/26/17 08:45 12.5 MG Carbamazepine (Tegretol Tab) 200 mg BID PO 04/24/17 09:00 05/24/17 08:59 04/26/17 08:46 200 MG Furosemide 20 mg/ Syringe 2 ml @ 4 mls/min 0815 ONCE IV 04/24/17 08:15 04/24/17 08:23 DC 04/24/17 08:40 4 MLS/MIN Furosemide 20 mg/ Syringe 2 ml @ 4 mls/min ONE ONCE IV 04/24/17 21:00 04/24/17 21:01 DC 04/24/17 20:41 4 MLS/MIN Lisinopril (Zestril Tab) 40 mg QAM PO 04/25/17 09:00 05/25/17 08:59 04/26/17 08:44 40 MG Levofloxacin 750 mg/Prmx 150 ml @ 100 mls/hr Q48H IV 04/24/17 19:00 05/01/17 18:59 04/24/17 20:40 100 MLS/HR Furosemide 40 mg/ Syringe 4 ml @ 4 mls/min TODAY@1415 ONCE IV 04/25/17 14:15 04/25/17 14:16 DC 04/25/17 15:13 4 MLS/MIN Methylprednisolone Sodium Succinate 125 mg/Syringe 2 ml @ 1.5 mls/min NOW ONCE IV 04/25/17 16:15 04/25/17 16:16 DC 04/25/17 16:34 1.5 MLS/MIN Methylprednisolone Sodium Succinate 60 mg/Syringe 0.96 ml @ 1.5 mls/min Q8H IV 04/26/17 00:00 05/26/17 00:00 04/26/17 08:47 1.5 MLS/MIN (Jennifer Pineda, ALTAGRACIA) Objective Vital Signs Date Time Temp Pulse Resp B/P (MAP) Pulse Ox O2 Delivery O2 Flow Rate FiO2 04/26/17 10:59 36.9 68 20 131/76 (94) 100 04/26/17 08:30 Nasal Cannula 4.0 04/26/17 07:19 81 18 91 Nasal Cannula 4.0 04/26/17 07:03 36.9 77 16 151/73 (99) 97 Nasal Cannula 4.0 04/26/17 04:28 36.9 86 16 148/72 (97) 100 Nasal Cannula 5.0 04/26/17 04:00 Nasal Cannula 5.0 04/26/17 02:07 82 22 88 Nasal Cannula 4.0 04/26/17 00:00 Nasal Cannula 4.0 04/25/17 23:58 36.3 96 18 179/81 (113) 96 Nasal Cannula 4.0 04/25/17 20:00 Nasal Cannula 4.0 04/25/17 19:30 88 22 93 Nasal Cannula 4.0 04/25/17 19:18 37.0 71 20 146/68 (94) 95 Nasal Cannula 4.0 04/25/17 16:00 Nasal Cannula 3.0 04/25/17 15:30 37.1 86 16 147/68 (94) 98 Nasal Cannula 3.0 04/25/17 14:02 84 20 90 Nasal Cannula 4.0 (Jennifer Pineda CRNP) Physical Exam Notes: General: no distress Eyes: normal inspection, PERLL Respiratory: chest non tender, coarse bases bilaterally, no respiratory distress , no accessory muscle use Cardiac: regular rate and rhythm, no rub or gallop, no murmur, no edema, no jvd GI/: active bowel sounds, no abd pain or tenderness, soft, non distended Extremities: normal range of motion, normal strength, non tender Neuro/Psych: alert and oriented to person or place, normal mood and affect Skin: normal color, dry (Jennifer Pineda CRNP) Laboratory Results Last 24 Hours Test 04/25/17 21:25 04/26/17 05:38 04/26/17 11:10 Bedside Glucose 202 mg/dl 176 mg/dl White Blood Count 2.45 K/uL Red Blood Count 2.08 M/uL Hemoglobin 9.1 g/dL Hematocrit 26.3 % Mean Corpuscular Volume 126.4 fL Mean Corpuscular Hemoglobin 43.8 pg Mean Corpuscular Hemoglobin Concent 34.6 g/dl RDW Standard Deviation 56.3 fL RDW Coefficient of Variation 12.3 % Platelet Count 245 K/uL Mean Platelet Volume 8.9 fL Sodium Level 139 mmol/L Potassium Level 4.1 mmol/L Chloride Level 102 mmol/L Carbon Dioxide Level 30 mmol/L Anion Gap 7.0 mmol/L Blood Urea Nitrogen 36 mg/dl Creatinine 1.26 mg/dl Est Creatinine Clear Calc Drug Dose 30.0 ml/min Estimated GFR () 45.6 Estimated GFR (Non- 39.4 BUN/Creatinine Ratio 28.3 Random Glucose 143 mg/dl Calcium Level 8.5 mg/dl (Jennifer Pineda CRNP) Assessment and Plan Ms. Abreu is an 82 year old woman here with generalized weakness likely due to multiple underlying issues. Weakness with ambulatory dysfunction - differential is broad in this pt and cause is likely multifactorial as there is evidence of infection, Carbamazepine toxicity and anemia with a high MCV. - PT/OT Carbamazepine toxicity - Initially her carbazepine level was 17, yesterday down to 6 - per neuro rec, patient's carbamazepine restarted 04/24 at 200 mg bid. Will follow levels weekly - she has not had a seizure in several years. Pneumonia/acute hypoxic respiratory failure/ COPD exacerbation - Changed from Unasyn and Zithro to Levaquin as patient's video swallow did not show aspiration - Nebs and 02 provided - continues to require 4L NC - last echo in 2016 did not show any heart failure however patient did have fluid overload following IVF - given IV lasix the past two days, will hold off on further lasix for today as creatinine increased and repeat cxr shows improving aeration and pneumonia, as well as patient appears to have made a small improvement today - Continue solu-medrol at 60 q8h - can titrate down tomorrow if oxygenation improving ?UTI UA is marginally (+) - should be adequately covered by the above - we chose to treat regardless due to sepsis history - continue levaquin Anemia - high MCV - chronic - B12 is high at 970. It is noted that she takes Hydroxyurea which will cause macrocytosis so that the MCV in itself is not a useful indicator. - Hb is at baseline. 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 It does not appear that she is under current treatment for any underlying malignancy. SUZANNE, Chronic Kidney disease - patient's creat is 1.6 on admission, decreased to 1.1 with IVF, up to 1.26 today - has occurred with previous acute illness and is likely pre-renal - Discontinued IVF due to above - hold lisinopril with small increase in creatinine - prp am HTN/HPL - cont Bblocker, Verapamil, Statin, HCTZ History of CVA - cont ASA, Statin Glaucoma - cont Timolol Full code DVT proph - heparin subq (Jennifer Pineda ., ALTAGRACIA) Reviewed: Pt Seen/Exam by Me (Lidia Magaña MD) History [facility] [employer] Supervision Note: I interviewed and examined the patient. Discussed with ALTAGRACIA Pineda and agree with findings and plan as documented in the note. Any exceptions or clarifications are listed here: Pt has no complaints. Remains on O2, anxious to go home Vitals reviewed NAD, alert, awake RRR no mgr Diffuse inspiratory and expiratory wheezes and rhonchi with decreased BS at bases Ext no edema Abd soft NT ND +BS 82 yo female with a history of severe COPD, lung adenocarcinoma status post right upper lobectomy, left-sided stage I breast cancer, nephrolithiasis, hypertension, cognitive impairment, history of CVA, CKD stage III, chronic macrocytic anemia, essential thrombocytosis, and glaucoma, here with generalized weakness, found to have LLL PNA, UTI, acute metabolic encephalopathy , and acute hypoxic respiratory failure. Also with acute exacerbation of COPD. Encephalopathy improved, remains with baseline dementia No further fevers, may have been atelectasis as was brief and occurred after being on antibiotics for 2 days Repeat CXR with chronic changes on right with patchy infiltrate Continues with diffuse wheezing and hypoxia-now that her history has been clarified with history of severe COPD and smoking, makes more sense that she needs more aggressive treatment for this -continue IV steroids, continue bronchodilators, on discharge should be started on Spiriva and Symbicort -no further diuresis at this time -Continue Levaquin 7 day course -Follow blood cultures-NGTD - consider CT of the chest iuf no improvement given her history of breast and lung cancer -Risperdal for agitation as needed at bedtime -has hyperglycemia with IV steroids-start accuchecks, SSI, and check HgbA1C in the AM Documented By: Lidia Magaña (Lidia Magaña MD)
[2017-04-26] MEDS ORDERED: DEXTROSE 50% 50 ML SYR IV PRN (17:30)
[2017-04-26] MEDS ORDERED: GLUCOSE 40% GEL 15 GM TUBE PO PRN (17:30)
[2017-04-26] MEDS ORDERED: GLUCAGON FOR INJ 1 MG VIAL SQ PRN (17:30)
[2017-04-26] MEDS ORDERED: GLUCOSE 10 TABS/TUBE PO PRN (17:30)
[2017-04-26] MEDS: LEVOFLOXACIN / D5W 750 MG in PREMIXED IN D5W 150 ML IV SCH (19:05)
[2017-04-26] MEDS: INSULIN ASPART 100 UNITS/ML 3 ML PEN SC SCH (21:00)
[2017-04-26] MEDS: DIAZEPAM 5MG TAB PO SCH (21:08)
[2017-04-26] MEDS: PRAVASTATIN SOD 20 MG TAB PO SCH (21:08)
[2017-04-26] MEDS: VERAPAMIL HCL 120 MG TABCR PO SCH (21:08)
[2017-04-27] VITALS (9 sets, daily range): BP systolic 148–180; BP diastolic 72–87; PULSE 66–80; TEMP 36.5–36.9; O2SAT 93–99
[2017-04-27] MEDS: ALBUT/IPRATROP 3MG/0.5MG NEB 3 ML VIAL INH SCH ×4 (01:38→19:07)
[2017-04-27 06:18] LABS: HEMATOCRIT 26.8 % (37-47); HEMOGLOBIN 9.4 g/dL (12.0-16.0); MEAN CELL VOLUME 125.8 fL (80-100); MEAN CORPUSCULAR HEMOGLOBIN 44.1 pg (25-34); MEAN CORPUSCULAR HGB CONC 35.1 g/dl (32-36); MEAN PLATELET VOLUME 8.9 fL (7.4-10.4); NUCLEATED RED BLOOD CELL ABS 0.02 K/uL (0-0); PLATELET COUNT 308 K/uL (130-400); RED CELL DISTRIBUTION WIDTH CV 12.5 % (11.5-14.5); RED CELL DISTRIBUTION WIDTH SD 56.4 fL (36.4-46.3); WHITE BLOOD COUNT 5.45 K/uL (4.8-10.8)
[2017-04-27 07:03] LABS: CALCIUM 8.7 mg/dl (8.5-10.1); CREATININE 1.4 mg/dl (0.60-1.20); POTASSIUM 4.5 mmol/L (3.5-5.1)
[2017-04-27] MEDS: ACETAMINOPHEN 325 MG TAB PO PRN ×2 (08:20→19:33)
[2017-04-27] MEDS: METHYLPREDNISOLONE IV 60 MG in SYRINGE 0 ML IV SCH ×2 (08:20→17:10)
[2017-04-27] MEDS: METOPROLOL SUCC 25MG EXT REL TAB PO SCH (08:21)
[2017-04-27] MEDS: PANTOprazole SOD 40 MG TAB PO SCH (08:21)
[2017-04-27] MEDS: CITALOPRAM 20 MG TAB PO SCH (08:21)
[2017-04-27] MEDS: HYDROCHLOROTHIAZIDE 25 MG TAB PO SCH (08:21)
[2017-04-27] MEDS: ASPIRIN 81 MG ECTAB PO SCH (08:21)
[2017-04-27] MEDS: ISOSORBIDE MONONITRATE 20 MG TAB PO SCH ×2 (08:22→17:09)
[2017-04-27] MEDS: PrednisoLONE ACET 1% OP SUSP 5 ML BTL OPB SCH ×2 (08:22→20:52)
[2017-04-27] MEDS: CARBAMAZEPINE 200 MG TAB PO SCH ×2 (08:22→21:05)
[2017-04-27] MEDS: TIMOLOL MALEATE 0.5% OP SOLN 5 ML BTL OPR SCH ×2 (08:22→20:52)
[2017-04-27] MEDS: ANASTROZOLE 1 MG TAB PO SCH (08:27)
[2017-04-27] MEDS: HEPARIN SOD 5000 UNIT/0.5 ML CARP SQ SCH ×2 (08:27→21:09)
[2017-04-27] MEDS: HYDROXYUREA 500 MG CAP PO SCH ×2 (08:27→12:06)
[2017-04-27] MEDS: INSULIN ASPART 100 UNITS/ML 3 ML PEN SC SCH ×4 (08:28→21:08)
[2017-04-27 09:18] LABS: HEMOGLOBIN A1C 5.8 % (4.5-5.6)
[2017-04-27] MEDS: PRAVASTATIN SOD 20 MG TAB PO SCH (21:03)
[2017-04-27] MEDS: DIAZEPAM 5MG TAB PO SCH (21:04)
[2017-04-27] MEDS: VERAPAMIL HCL 120 MG TABCR PO SCH (21:04)
--- NOTE | 2017-04-27 21:31 | DIAGNOSTIC IMAGING REPORT ---
CHEST 2 VIEWS ROUTINE CLINICAL HISTORY: 82 years-old Female presenting with left=sided pneumonia, interval change. TECHNIQUE: Portable upright AP view of the chest was obtained. COMPARISON: 04/26/2017. FINDINGS: The patient is ANABELL rotated. Allowing for this, cardiac mediastinal silhouette is not significantly changed. Apparent decreased aeration and increased opacity of the right lung. Increasing right pleural effusion. Minimal increase in basilar predominant left pulmonary opacity. Trace left pleural effusion may be present. No large pneumothorax. Osteopenia. Numerous overlying external leads degrade evaluation of the right upper quadrant. IMPRESSION: 1. Significant interval worsening of right lung consolidation and increasing left basilar consolidation. This is concerning for worsening pneumonia. 2. Increasing right parapneumonic effusion. Electronically signed by: Kam Pereira M.D. 04/27/2017 9:30 PM Dictated Date/Time: 04/27/2017 9:28 PM
[2017-04-27] MEDS ORDERED: CEFEPIME IV 1,000 MG in DEXTROSE 5% 100ML 100 ML IV SCH (21:45)
--- NOTE | 2017-04-27 21:47 | Progress Note ---
Subjective Date of Service: Apr 27, 2017. Subjective Pt evaluation today including: conversation w/ patient, physical exam, chart review, lab review, review of studies (cxr), review of inpatient medication list Pain: denies PO Intake: fair Voiding: rodriguez catheter in place patient confused during the visit could not tell me why she was here or what day/year/month it was stated "I have pneumonia?" she surprisingly denied any pulmonary complaints staff report ongoing confusion Problem List Medical Problems: (1) Carbamazepine toxicity Status: Acute (2) Constipation Status: Acute (3) Dehydration Status: Acute (4) NSTEMI (non-ST elevated myocardial infarction) Status: Acute (5) Renal colic Status: Acute (6) UTI (urinary tract infection) Status: Acute (7) UTI (urinary tract infection) Status: Acute (8) Vomiting Status: Acute Social History Problems: (1) History of lithotripsy Status: Acute Review of Systems Respiratory: No cough, No sputum, No shortness of breath Cardiac: No chest pain Abdomen: No pain Objective Vital Signs Date Time Temp Pulse Resp B/P (MAP) Pulse Ox O2 Delivery O2 Flow Rate FiO2 04/27/17 20:08 36.5 80 20 148/72 (97) 98 Nasal Cannula 3.0 04/27/17 19:07 75 16 95 Nasal Cannula 2.0 04/27/17 16:14 Nasal Cannula 2.0 04/27/17 14:55 36.9 73 20 154/75 (101) 95 Nasal Cannula 2.0 04/27/17 14:36 72 16 93 Nasal Cannula 2.0 04/27/17 12:14 Nasal Cannula 2.0 04/27/17 11:30 36.7 66 18 165/87 (113) 95 Nasal Cannula 2.0 04/27/17 08:20 Nasal Cannula 2.0 04/27/17 07:27 36.9 78 20 180/87 (118) 97 Nasal Cannula 3.0 04/27/17 07:03 71 16 97 Nasal Cannula 3.0 04/27/17 04:00 Nasal Cannula 4.0 04/27/17 02:44 36.6 69 18 155/74 (101) 99 Nasal Cannula 3.0 04/27/17 01:38 71 16 94 Nasal Cannula 3.0 04/27/17 00:00 Nasal Cannula 4.0 04/26/17 23:45 37.3 71 18 165/87 (113) 100 Nasal Cannula 3.0 Physical Exam General Appearance: no apparent distress ENT: pharynx normal Neck: no JVD Respiratory/Chest: no respiratory distress, no accessory muscle use, + decreased breath sounds (right), + crackles (left base), + rhonchi, + wheezing ( b/l, but worse on left) Cardiovascular: regular rate, rhythm, no gallop, no murmur Abdomen: normal bowel sounds, non tender, soft, no organomegaly Extremities: no pedal edema Neurologic/Psychiatric: alert, + disoriented Laboratory Results Last 24 Hours Test 04/27/17 05:40 04/27/17 07:37 04/27/17 11:23 04/27/17 16:14 White Blood Count 5.45 K/uL Red Blood Count 2.13 M/uL Hemoglobin 9.4 g/dL Hematocrit 26.8 % Mean Corpuscular Volume 125.8 fL Mean Corpuscular Hemoglobin 44.1 pg Mean Corpuscular Hemoglobin Concent 35.1 g/dl RDW Standard Deviation 56.4 fL RDW Coefficient of Variation 12.5 % Platelet Count 308 K/uL Mean Platelet Volume 8.9 fL Nucleated RBC Absolute Count (auto) 0.02 K/uL Nucleated Red Blood Cells % 0.4 % Sodium Level 138 mmol/L Potassium Level 4.5 mmol/L Chloride Level 102 mmol/L Carbon Dioxide Level 27 mmol/L Anion Gap 9.0 mmol/L Blood Urea Nitrogen 48 mg/dl Creatinine 1.40 mg/dl Est Creatinine Clear Calc Drug Dose 27.3 ml/min Estimated GFR () 40.2 Estimated GFR (Non- 34.7 BUN/Creatinine Ratio 34.0 Random Glucose 138 mg/dl Estimated Average Glucose 120 mg/dl Hemoglobin A1c 5.8 % Calcium Level 8.7 mg/dl Bedside Glucose 127 mg/dl 165 mg/dl 144 mg/dl Test 04/27/17 20:42 Bedside Glucose 190 mg/dl Assessment and Plan 82yo female - 1. acute hypoxic resp failure - 2nd to LLL pneumonia - ongoing O2 requirement. Lungs sound very poor. Repeated her cxr - b/l pneumonia much worse; this is despite levaquin. Will stop levaquin, change to cefepime, and check MRSA swab. recent video swallow negative; aspiration unlikely. Cover for gram negatives w/ the cefepime. Blood cx's neg. 2. alpha strep UTI - levaquin, and now cefepime, will suffice. 3. metabolic encephalopathy - 2nd to #1, #2; cannot r/o toxic encephalopathy from recent tegretol toxicity. Cannot r/o baseline dementia/cognitive impairment - will need to check w/ family. 4. COPD with exacerbation - cont IV steroids; no wean today; supportive care, nebs, o2, etc. 5. DVT proph - heparin. 6. CKD stage 3-4 - creatinine today stable; BMP am. 7. significant macrocytosis - b12, folate, TSH wnl. Due to hydroxyurea? other ? 8. tegretol toxicity - most recent level was wnl. Tegretol dose decreased appropriately. Follow. 9. h/o lung ca - noted. 10. hydroxyurea use - reason? 11. HTN - controlled. 12. dysphagia with prior history of esophageal dilatation due to a Schatzki's ring - seen by speech; not aspirating based on bedside eval and video swallow. 13. h/o stroke in 2002 - noted - continue asa for secondary stroke prevention. PT, OT evals will update family tomorrow Continued [facility] stay due to: multiple IV medications needed Discharge planning: uncertain
[2017-04-27] MEDS: CEFEPIME IV 1,000 MG in SYRINGE 0 ML IV SCH (21:55)
[2017-04-28] VITALS (12 sets, daily range): BP systolic 120–177; BP diastolic 63–84; PULSE 61–83; TEMP 36.4–37; O2SAT 94–97
[2017-04-28] MEDS: METHYLPREDNISOLONE IV 60 MG in SYRINGE 0 ML IV SCH ×3 (00:48→17:18)
[2017-04-28] MEDS: ALBUT/IPRATROP 3MG/0.5MG NEB 3 ML VIAL INH SCH ×4 (02:00→19:15)
[2017-04-28] MEDS: CEFEPIME IV 1,000 MG in SYRINGE 0 ML IV SCH ×3 (05:51→21:36)
[2017-04-28] MEDS: ACETAMINOPHEN 325 MG TAB PO PRN (05:52)
[2017-04-28] MEDS: ISOSORBIDE MONONITRATE 20 MG TAB PO SCH ×2 (08:02→17:18)
[2017-04-28] MEDS: CARBAMAZEPINE 200 MG TAB PO SCH ×2 (08:02→21:11)
[2017-04-28] MEDS: HYDROCHLOROTHIAZIDE 25 MG TAB PO SCH (08:03)
[2017-04-28] MEDS: PANTOprazole SOD 40 MG TAB PO SCH (08:04)
[2017-04-28] MEDS: CITALOPRAM 20 MG TAB PO SCH (08:04)
[2017-04-28] MEDS: METOPROLOL SUCC 25MG EXT REL TAB PO SCH (08:04)
[2017-04-28] MEDS: ASPIRIN 81 MG ECTAB PO SCH (08:04)
[2017-04-28] MEDS: TIMOLOL MALEATE 0.5% OP SOLN 5 ML BTL OPR SCH ×2 (08:05→21:16)
[2017-04-28] MEDS: INSULIN ASPART 100 UNITS/ML 3 ML PEN SC SCH ×4 (08:05→21:16)
[2017-04-28] MEDS: PrednisoLONE ACET 1% OP SUSP 5 ML BTL OPB SCH ×2 (08:05→21:16)
[2017-04-28] MEDS: ANASTROZOLE 1 MG TAB PO SCH (08:11)
[2017-04-28] MEDS: HEPARIN SOD 5000 UNIT/0.5 ML CARP SQ SCH ×2 (08:11→21:15)
[2017-04-28] MEDS: HYDROXYUREA 500 MG CAP PO SCH ×2 (08:12→12:44)
[2017-04-28 09:32] LABS: HEMATOCRIT 27.1 % (37-47); HEMOGLOBIN 9.5 g/dL (12.0-16.0); MEAN CELL VOLUME 124.9 fL (80-100); MEAN CORPUSCULAR HEMOGLOBIN 43.8 pg (25-34); MEAN CORPUSCULAR HGB CONC 35.1 g/dl (32-36); NUCLEATED RED BLOOD CELL ABS 0.02 K/uL (0-0); PLATELET COUNT 307 K/uL (130-400); RED CELL DISTRIBUTION WIDTH CV 12.4 % (11.5-14.5); RED CELL DISTRIBUTION WIDTH SD 55.6 fL (36.4-46.3)
[2017-04-28] MEDS ORDERED: MoRPHine SULFATE 2 MG/ML CARP ONE (09:40)
[2017-04-28] MEDS ORDERED: MoRPHine SULFATE 2 MG/ML CARP IV PRN (09:45)
--- NOTE | 2017-04-28 09:48 | Hospitalist Progress Note ---
Hospitalist Progress Note Date of Service Apr 28, 2017. (Jennifer Pineda .ALTAGRACIA) Subjective Pt evaluation today including: conversation w/ patient, physical exam, chart review, lab review, review of inpatient medication list Voiding: rodriguez catheter in place Ms. Harmon appears a bit more alert today, able to tell me person and place though she did not remember that she had pneumonia. She has an audibly moist cough and she complains of sternal and left rib pain when she coughs. She denies sob ROS Constitutional: no chills, aches, sweats or fever Respiratory: see HPI Cardiac: no chest pain, palpitations, edema, orthopnea or lightheadedness GI: no abdominal pain, nausea, vomiting, diarrhea or constipation : no dysuria or hesitancy Extremities: no joint pain or weakness Skin: no rash All other systems reviewed and negative (Jennifer Pineda CRNP) Medications Medications Administered Medications (Trade) Dose Ordered Sig/Ashley Route Start Time Stop Time Status Last Admin Dose Admin Sodium Chloride 500 ml @ 999 mls/hr Q31M STAT IV 04/23/17 00:15 04/23/17 00:45 DC 04/23/17 00:54 999 MLS/HR Sodium Chloride 1,000 ml @ 150 mls/hr Q6H40M ONCE IV 04/23/17 00:15 04/23/17 02:19 DC 04/23/17 01:34 150 MLS/HR Anastrozole (Arimidex Tab) 1 mg DAILY PO 04/23/17 09:00 05/23/17 08:59 04/28/17 08:11 1 MG Aspirin (Ecotrin Tab) 81 mg QAM PO 04/23/17 09:00 05/23/17 08:59 04/28/17 08:04 81 MG Citalopram Hydrobromide (celeXA TAB) 20 mg QAM PO 04/23/17 09:00 05/23/17 08:59 04/28/17 08:04 20 MG Diazepam (Valium Tab) 5 mg HS PO 04/23/17 21:00 05/23/17 20:59 04/27/17 21:04 5 MG Hydroxyurea (Hydrea Cap) 500 mg BID@0900,1200 PO 04/23/17 09:00 05/23/17 08:59 04/28/17 08:12 500 MG Isosorbide Mononitrate (Ismo Tab) 20 mg BID17 PO 04/23/17 09:00 05/23/17 08:59 04/28/17 08:02 20 MG Metoprolol Succinate (Toprol Xl Tab) 25 mg DAILY PO 04/23/17 09:00 05/23/17 08:59 04/28/17 08:04 25 MG Pravastatin Sodium (Pravachol Tab) 20 mg HS PO 04/23/17 21:00 05/23/17 20:59 04/27/17 21:03 20 MG Prednisolone Acetate (Pred Forte 1% Oph Susp) 1 drops AMHS OPB 04/23/17 09:00 05/23/17 08:59 04/28/17 08:05 1 DROPS Timolol Maleate (Timoptic 0.5% Oph Soln) 1 drops AMHS OPR 04/23/17 09:00 05/23/17 08:59 04/28/17 08:05 1 DROPS Pantoprazole Sodium (Protonix Tab) 40 mg QAM PO 04/23/17 09:00 05/23/17 08:59 04/28/17 08:04 40 MG Verapamil HCl (Calan-Sr Tab) 120 mg HS PO 04/23/17 21:00 05/23/17 20:59 04/27/17 21:04 120 MG Sodium Chloride 1,000 ml @ 80 mls/hr [id number] IV 04/23/17 02:15 04/24/17 07:25 DC 04/23/17 20:20 80 MLS/HR Heparin Sodium (Porcine) (Heparin Sq 5000 Unit/0.5ml) 5,000 unit Q12 SQ 04/23/17 09:00 05/23/17 08:59 04/28/17 08:11 5,000 UNIT Acetaminophen (Tylenol Tab) 650 mg Q4H PRN PO 04/23/17 02:15 05/23/17 02:14 04/28/17 05:52 650 MG Ondansetron HCl (Zofran Inj) 4 mg Q6H PRN IV 04/23/17 02:15 05/23/17 02:14 04/23/17 22:19 4 MG Ampicillin Sodium/ Sulbactam Sodium 3000 mg/Sodium Chloride 108 ml @ 200 mls/hr Q12H IV 04/23/17 04:00 04/24/17 18:18 DC 04/24/17 16:21 200 MLS/HR Azithromycin 500 mg/Dextrose 255 ml @ 125 mls/hr DAILY@0400 IV 04/23/17 04:00 04/24/17 18:11 DC 04/24/17 04:20 125 MLS/HR Albuterol/ Ipratropium (Duoneb) 3 ml Q6R INH 04/23/17 09:00 05/23/17 08:59 04/28/17 07:15 3 ML Albuterol Sulfate (Ventolin 0.083% 2.5MG/3ML Neb) 2.5 mg Q4H PRN INH 04/23/17 06:00 05/23/17 05:59 04/24/17 05:47 2.5 MG Diazepam (Valium Tab) 5 mg ONE ONCE PO 04/23/17 19:30 04/23/17 19:43 DC 04/23/17 20:17 5 MG Hydroxyzine HCl (Vistaril Tab) 25 mg NOW STAT PO 04/23/17 23:24 04/23/17 23:32 DC 04/24/17 00:06 25 MG Risperidone (Risperdal Tab) 0.25 mg HS PRN PO 04/24/17 07:30 05/24/17 07:29 04/24/17 22:07 0.25 MG Hydrochlorothiazide (Hydrochlorothiazide Tab) 12.5 mg QAM PO 04/24/17 09:00 05/24/17 08:59 04/28/17 08:03 12.5 MG Carbamazepine (Tegretol Tab) 200 mg BID PO 04/24/17 09:00 05/24/17 08:59 04/28/17 08:02 200 MG Furosemide 20 mg/ Syringe 2 ml @ 4 mls/min 0815 ONCE IV 04/24/17 08:15 04/24/17 08:23 DC 04/24/17 08:40 4 MLS/MIN Furosemide 20 mg/ Syringe 2 ml @ 4 mls/min ONE ONCE IV 04/24/17 21:00 04/24/17 21:01 DC 04/24/17 20:41 4 MLS/MIN Lisinopril (Zestril Tab) 40 mg QAM PO 04/25/17 09:00 05/25/17 08:59 Future Hold 04/26/17 08:44 40 MG Levofloxacin 750 mg/Prmx 150 ml @ 100 mls/hr Q48H IV 04/24/17 19:00 04/27/17 21:35 DC 04/26/17 19:05 100 MLS/HR Furosemide 40 mg/ Syringe 4 ml @ 4 mls/min TODAY@1415 ONCE IV 04/25/17 14:15 04/25/17 14:16 DC 04/25/17 15:13 4 MLS/MIN Methylprednisolone Sodium Succinate 125 mg/Syringe 2 ml @ 1.5 mls/min NOW ONCE IV 04/25/17 16:15 04/25/17 16:16 DC 04/25/17 16:34 1.5 MLS/MIN Methylprednisolone Sodium Succinate 60 mg/Syringe 0.96 ml @ 1.5 mls/min Q8H IV 04/26/17 00:00 05/26/17 00:00 04/28/17 08:02 1.5 MLS/MIN Insulin Aspart (novoLOG ASPART) SLIDING SCALE If C... ACHS SC 04/26/17 21:00 05/26/17 20:59 04/27/17 21:08 1 UNITS Cefepime HCl 1000 mg/Syringe 11 ml @ 5.5 mls/min Q8 IV 04/27/17 22:00 05/04/17 21:59 04/28/17 05:51 5.5 MLS/MIN (Jennifer Pineda, ALTAGRACIA) Objective Vital Signs Date Time Temp Pulse Resp B/P (MAP) Pulse Ox O2 Delivery O2 Flow Rate FiO2 04/28/17 07:17 37.0 68 18 162/84 (110) 94 Nasal Cannula 2.0 04/28/17 07:16 71 16 97 Nasal Cannula 3.0 04/28/17 04:20 36.4 71 20 120/66 (84) 95 Nasal Cannula 2.0 04/28/17 04:05 Nasal Cannula 2.0 04/28/17 02:00 77 16 94 Nasal Cannula 3.0 04/28/17 00:05 Nasal Cannula 2.0 04/28/17 00:02 36.8 83 16 154/63 (93) 95 Nasal Cannula 3.0 04/27/17 20:08 36.5 80 20 148/72 (97) 98 Nasal Cannula 3.0 04/27/17 20:05 Nasal Cannula 2.0 04/27/17 19:07 75 16 95 Nasal Cannula 2.0 04/27/17 16:14 Nasal Cannula 2.0 04/27/17 14:55 36.9 73 20 154/75 (101) 95 Nasal Cannula 2.0 04/27/17 14:36 72 16 93 Nasal Cannula 2.0 04/27/17 12:14 Nasal Cannula 2.0 04/27/17 11:30 36.7 66 18 165/87 (113) 95 Nasal Cannula 2.0 (Jennifer Pineda CRNP) Physical Exam Notes: General: no distress Eyes: normal inspection, PERLL Respiratory: chest non tender, decreased air movement, coarse throughout, no respiratory distress, no accessory muscle use Cardiac: regular rate and rhythm, no rub or gallop, no murmur, no edema, no jvd GI/: active bowel sounds, no abd pain or tenderness, soft, non distended Extremities: normal range of motion, normal strength, non tender Neuro/Psych: alert and oriented x 3, normal mood and affect Skin: normal color, dry (Jennifer Pineda CRNP) Laboratory Results Last 24 Hours Test 04/27/17 11:23 04/27/17 16:14 04/27/17 20:42 04/28/17 07:28 Bedside Glucose 165 mg/dl 144 mg/dl 190 mg/dl 110 mg/dl Test 04/28/17 09:22 White Blood Count 6.10 K/uL Red Blood Count 2.17 M/uL Hemoglobin 9.5 g/dL Hematocrit 27.1 % Mean Corpuscular Volume 124.9 fL Mean Corpuscular Hemoglobin 43.8 pg Mean Corpuscular Hemoglobin Concent 35.1 g/dl RDW Standard Deviation 55.6 fL RDW Coefficient of Variation 12.4 % Platelet Count 307 K/uL Mean Platelet Volume 9.0 fL Nucleated RBC Absolute Count (auto) 0.02 K/uL Nucleated Red Blood Cells % 0.3 % (Jennifer Pineda CRNP) Assessment and Plan Ms. Abreu is an 82 year old woman who presented with generalized weakness likely due to multiple underlying issues Pneumonia/acute hypoxic respiratory failure/ COPD exacerbation - Changed from Unasyn and Zithro to Levaquin as patient's video swallow did not show aspiration - will change to cefepime as CXR shows worsening bilateral consolidations - Nebs and 02 provided - continues to require 2L NC - last echo in 2015 did not show any heart failure however patient did have fluid overload following IVF - given IV lasix x 2 days with good diuresis and some improvement in oxygenation, able to reduce from 4L to 2L - Continue solu-medrol at 60 q8h - will continue for now - Consult pulm - morphine, tylenol prn for pleural/sternal pain Carbamazepine toxicity - Initially her carbazepine level was 17 and then trended down to 6 - per neuro rec, patient's carbamazepine restarted 04/24 at 200 mg bid. Will follow levels weekly - next check on 04/30 - she has not had a seizure in several years. Weakness with ambulatory dysfunction - likely multifactorial as there is evidence of infection, Carbamazepine toxicity and anemia with a high MCV. - PT/OT ?UTI UA is marginally (+) - should be adequately covered by the above - we chose to treat regardless due to sepsis history - continue levaquin Anemia - high MCV - chronic - B12 is high at 970. It is noted that she takes Hydroxyurea which will cause macrocytosis so that the MCV in itself is not a useful indicator. - Hb is at baseline. 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 It does not appear that she is under current treatment for any underlying malignancy. SUZANNE, Chronic Kidney disease - patient's creat was 1.6 on admission, decreased to 1.1 with IVF, trended up to 1.4 today - has occurred with previous acute illness and is likely pre-renal - Discontinued IVF due to above - continue to hold lisinopril - prp am HTN/HPL - cont Bblocker, Verapamil, Statin, HCTZ History of CVA - cont ASA, Statin Glaucoma - cont Timolol Full code DVT proph - heparin subq (Jennifer Pineda ., ALTAGRACIA) Attending Attestation - Pt seen/examined, chart reviewed, care plan d/w ALTAGRACIA Pineda. I agree w/ the mcnulty components of her documentation. Pt states "I feel good, I want to go home." She states she is at "[facility]" but cannot tell me the month, year, or date. I spoke w/ by phone - he confirms she has had cognitive dysfunction since her stroke in 2002. VSS afebrile o2 sats acceptable gen - nad neck - no obvious JVD heart - RRR lungs - breath sounds much more clear today, decreased BS left base, no wheeze today abd - soft ext - no edema A/P: 1. acute hypoxic resp failure - 2nd to b/l pneumonia with COPD exacerbation - cont cefepime, cont steroids. Appreciate pulmonary recommendations. MRSA swab neg; defer on MRSA coverage. Already had atypical coverage w/ prior abx. Blood cx's negative. Cont supportive care. 2. alpha strep UTI - resolved. 3. metabolic encephalopathy in setting of baseline vascular dementia/cognitive impairment - treat active metabolic issues (UTI, pneumonia, etc). 4. COPD with exacerbation - cont IV steroids, o2, nebs. 5. DVT proph - heparin. 6. CKD stage 3-4 - creatinine acceptable. 7. significant macrocytosis - b12, folate, TSH wnl. Due to hydroxyurea? 8. tegretol toxicity - most recent level was wnl. Tegretol dose decreased appropriately. Follow. 9. h/o lung ca - noted. Agree with CT chest to exclude recurrence. 10. hydroxyurea use - thrombocytosis dx in 2016. PT, OT can d/c telemetry Stephanie LOVING MD (Gray Loving MD)
[2017-04-28 09:54] LABS: CALCIUM 8.2 mg/dl (8.5-10.1); CREATININE 1.44 mg/dl (0.60-1.20); POTASSIUM 4.1 mmol/L (3.5-5.1)
[2017-04-28] MEDS ORDERED: FUROSEMIDE INJ 20 MG in SYRINGE 0 ML IV ONE (12:08)
[2017-04-28] MEDS: ACETAMINOPHEN 500 MG TAB PO PRN ×2 (12:43→21:12)
[2017-04-28] MEDS: FUROSEMIDE INJ 20 MG in SYRINGE 0 ML IV SCH (17:17)
--- NOTE | 2017-04-28 17:57 | Pulmonary Consultation ---
History General Date of Service: Apr 28, 2017. Stated Complaint: Carbamazepine Toxicity, Weakness HPI The patient is a 82 year old female who presents to [facility] with complaints of Carbamazepine Toxicity, Weakness. The patient's primary care provider is Samira Mercado M.D.. Historian: patient, other (Mostly from the medical records, the patient is poor historian.) Review of Systems Constitutional: reports: no symptoms Eyes: reports: no symptoms ENT: reports: no symptoms Cardiovascular: reports: no symptoms Respiratory: reports: cough, shortness of breath Gastrointestinal: reports: no symptoms Genitourinary - Female: reports: no symptoms Integumentary: reports: no symptoms Neurologic: reports: general weakness Endocrine: no symptoms Hematologic / Lymphatic: no symptoms Allergic / Immunologic: no symptoms Past Medical History Past Medical History: History of CVA, without significant neurologic residual, possible dementia as the patient did not remember details about her daily life, hypertension with LVH , history of Tegretol toxicity on this admission, seizure disorder, breast CA with lung diastasis, history of right-sided thoracotomy, the patient could not determine for me to date and the type of procedure she received. Past Surgical History: Right-sided thoracotomy. Family History Patient reports no known family medical history. Social History Hx Tobacco Use In Past Year?: No Smoking Status: Former Smoker Marital status: Occupational Status: retired Immunizations History of Influenza Vaccine: Yes Influenza Vaccine Date: Nov 27, 2006 History of Tetanus Vaccine?: Unknown History of Pneumococcal: Unknown History of Hepatitis B Vaccine: Unknown History of MDRO History of MDRO: No Allergies Coded Allergies: Indigo (Verified Allergy, Mild, ?, 04/22/17) Meperidine (Verified Adverse Reaction, Intermediate, CONFUSION, 04/22/17) Oxycodone (Verified Adverse Reaction, Intermediate, CONFUSION, 04/22/17) Current Medications Reported Home Medications Medications Dose Route/Sig Max Daily Dose Days Date Category Toprol-Xl (Metoprolol Succinate) 25 Mg Tabcr 25 Mg PO DAILY AT NOON 01/03/17 Reported Hctz (Hydrochlorothiazide) 12.5 Mg Cap 12.5 Mg PO DAILY AT NOON 01/03/17 Reported Citalopram Hydrobromide (Citalopram) 20 Mg Tab 20 Mg PO QAM 01/03/17 Reported Garlic 1,000 Mg Cap 1,000 Mg PO QPM 01/03/17 Reported Prednisolone Acetate (Prednisolone Acetate (Ophth)) 1 % Michelle 1 Drop OPB AMHS 10 01/03/17 Reported D 2000 (Cholecalciferol) 2,000 Unit Tab 2,000 Units PO DAILY AT NOON 01/03/17 Reported Timolol 0.5% Oph Soln 15 Ml (Timolol Maleate) 15 Ml Soln 1 Drop OPR AMHS 01/03/17 Reported Anastrozole 1 Mg Tab 1 Tab PO DAILY AT NOON 09/27/15 Reported Os-Krzysztof 500 Plus D (Calcium/Vitamin D) Tab 1 Tab PO QAM 09/27/15 Reported Calan (Verapamil HCl) 120 Mg Tab 120 Mg PO QPM 05/17/15 Reported Valium (Diazepam) 5 Mg Tab 5 Mg PO HS 05/17/15 Reported Tegretol (Carbamazepine) 200 Mg Tab 200 Mg PO TID 05/17/15 Reported Zestril (Lisinopril) 40 Mg Tab 40 Mg PO QAM 05/17/15 Reported Isosorbide Mononitrate 20 Mg Tab 20 Mg PO BID17 05/04/15 Reported [place]-3 (Fish Oil) 1 Ea Cap 1 Cap PO DAILY AT NOON 03/30/15 Reported Centrum Silver (Multiple Vitamins W/ Minerals) 1 Chw Chw 1 Tab PO QAM 02/12/15 Reported Aspirin Ec (Aspirin) 81 Mg Tab 81 Mg PO QAM 11/13/14 Reported Hydrea Cap (Hydroxyurea) 500 Mg Cap 500 Mg PO BID AT NOON & 1700 03/27/13 Reported Prevacid (Lansoprazole) 30 Mg Capcr 30 Mg PO QAM 01/06/13 Reported Pravachol (Pravastatin Sodium) 20 Mg Tab 20 Mg PO HS 01/06/13 Reported Physical Physical Exam Vital Signs: Date Time Temp Pulse Resp B/P (MAP) Pulse Ox O2 Delivery O2 Flow Rate FiO2 04/28/17 16:11 Nasal Cannula 2.0 04/28/17 14:49 36.5 78 20 150/75 (100) 95 Nasal Cannula 3.0 04/28/17 14:23 74 16 95 Nasal Cannula 2.0 04/28/17 12:30 Nasal Cannula 2.0 04/28/17 11:43 72 163/67 (99) 04/28/17 11:43 79 160/84 (109) 04/28/17 11:42 36.7 61 18 177/82 (113) 97 Nasal Cannula 2.0 04/28/17 08:25 Nasal Cannula 2.0 04/28/17 07:17 37.0 68 18 162/84 (110) 94 Nasal Cannula 2.0 04/28/17 07:16 71 16 97 Nasal Cannula 3.0 04/28/17 04:20 36.4 71 20 120/66 (84) 95 Nasal Cannula 2.0 04/28/17 04:05 Nasal Cannula 2.0 04/28/17 02:00 77 16 94 Nasal Cannula 3.0 04/28/17 00:05 Nasal Cannula 2.0 04/28/17 00:02 36.8 83 16 154/63 (93) 95 Nasal Cannula 3.0 04/27/17 20:08 36.5 80 20 148/72 (97) 98 Nasal Cannula 3.0 04/27/17 20:05 Nasal Cannula 2.0 04/27/17 19:07 75 16 95 Nasal Cannula 2.0 General Appearance: NO APPARENT DISTRESS Eyes: PERRLA, EOMI ENT: NORMAL THROAT EXAM Respiratory: other (Crackles at the bases) Cardiovasular: REGULAR RATE/RHYTHM, NORMAL S1S2, NO M/G/R, NO MURMUR Abdomen: NO REBOUND, NO MASSES Lower Extremities: edema Neuro: ALERT, NORMAL MOTOR EXAM Psychiatric: other (Possibly demented) Diagnostics Labs Results Past 24 Hours Test 04/27/17 20:42 04/28/17 07:28 04/28/17 09:22 04/28/17 11:43 Range/Units Bedside Glucose 190 110 137 70-90 mg/dl White Blood Count 6.10 4.8-10.8 K/uL Red Blood Count 2.17 4.2-5.4 M/uL Hemoglobin 9.5 12.0-16.0 g/dL Hematocrit 27.1 37-47 % Mean Corpuscular Volume 124.9 80-100 fL Mean Corpuscular Hemoglobin 43.8 25-34 pg Mean Corpuscular Hemoglobin Concent 35.1 32-36 g/dl RDW Standard Deviation 55.6 36.4-46.3 fL RDW Coefficient of Variation 12.4 11.5-14.5 % Platelet Count 307 130-400 K/uL Mean Platelet Volume 9.0 7.4-10.4 fL Nucleated RBC Absolute Count (auto) 0.02 0-0 K/uL Nucleated Red Blood Cells % 0.3 % Sodium Level 137 136-145 mmol/L Potassium Level 4.1 3.5-5.1 mmol/L Chloride Level 103 98-107 mmol/L Carbon Dioxide Level 28 21-32 mmol/L Anion Gap 7.0 3-11 mmol/L Blood Urea Nitrogen 48 7-18 mg/dl Creatinine 1.44 0.60-1.20 mg/dl Est Creatinine Clear Calc Drug Dose 26.4 ml/min Estimated GFR () 38.8 Estimated GFR (Non- 33.5 BUN/Creatinine Ratio 33.4 10-20 Random Glucose 115 70-99 mg/dl Calcium Level 8.2 8.5-10.1 mg/dl Test 04/28/17 16:30 04/28/17 17:15 Range/Units Bedside Glucose 153 70-90 mg/dl Microbiology Results 04/28/17 MRSA DNA Surveillance Screen - Final, Complete Specimen Negative for MRSA by DNA Probe Diagnostic Radiology Chest x-ray was reviewed on 2 occasions which showed bibasilar infiltrates, the second chest x-ray done from today revealed bilateral pleural effusion with increasing pleural effusion on the right. Ultrasound was done of the bedside by me which showed small bilateral pleural effusion with atelectatic changes. Impression Assessment and Plan 1. Right lower lobe pneumonia, presented to the hospital with fever and started on IV antibiotics. 2. Bilateral pleural effusion appear to be fluid overload rather than parapneumonic effusion. Nonsedating fluid on the ultrasound that I did at the bedside, and compressive atelectasis features on both sides. However the patient does have a history of thoracotomy on the right side which is concerning to me. Patient also has a history of breast CA with metastasis in the past. 3. Possible dementia. The patient could not provide me with much of history. 4. The community-acquired pneumonia she presented with could be representing aspiration, however video-assisted swallow study did not confirm aspiration but there was pooling without penetration. 5. Given the patient's level of confusion with Tegretol toxicity, she might have had aspirated earlier. 6. History of COPD, not on home oxygen, as she is living in a trailer home. She lives with her according to her. Plan: 1. Continue cefepime, day 2. 2. I will change Solu-Medrol to 40 mg IV every 6 hours. 3. Ultrasound was done at the bedside with evidence of bilateral pleural effusion and fluid overload. 4. Obtain BNP. 5. Obtain echocardiogram to evaluate her cardiac status. 6. The patient was hydrated on admission however she is even and fluid balance. 7. Continue gentle diuresis. 8. Obtain CAT scan of the chest given her history of breast CA and bilateral pleural effusion. 9. Oxygen [id number]. 10. Bronchodilators. Thank you, will follow.
[2017-04-28] MEDS: DIAZEPAM 5MG TAB PO SCH (21:09)
[2017-04-28] MEDS: VERAPAMIL HCL 120 MG TABCR PO SCH (21:10)
[2017-04-28] MEDS: PRAVASTATIN SOD 20 MG TAB PO SCH (21:12)
[2017-04-29] VITALS (8 sets, daily range): BP systolic 125–170; BP diastolic 63–84; PULSE 65–85; TEMP 36.3–36.9; O2SAT 90–97
[2017-04-29] MEDS: METHYLPREDNISOLONE IV 60 MG in SYRINGE 0 ML IV SCH ×2 (00:19→08:16)
[2017-04-29] MEDS: ALBUT/IPRATROP 3MG/0.5MG NEB 3 ML VIAL INH SCH ×4 (02:31→19:17)
[2017-04-29 06:21] LABS: HEMATOCRIT 27.5 % (37-47); HEMOGLOBIN 9.7 g/dL (12.0-16.0); MEAN CELL VOLUME 124.4 fL (80-100); MEAN CORPUSCULAR HEMOGLOBIN 43.9 pg (25-34); MEAN CORPUSCULAR HGB CONC 35.3 g/dl (32-36); MEAN PLATELET VOLUME 8.8 fL (7.4-10.4); NUCLEATED RED BLOOD CELL ABS 0.02 K/uL (0-0); PLATELET COUNT 379 K/uL (130-400); RED CELL DISTRIBUTION WIDTH CV 12.4 % (11.5-14.5); RED CELL DISTRIBUTION WIDTH SD 55.4 fL (36.4-46.3); WHITE BLOOD COUNT 6.42 K/uL (4.8-10.8)
[2017-04-29] MEDS: CEFEPIME IV 1,000 MG in SYRINGE 0 ML IV SCH ×3 (06:26→21:42)
[2017-04-29 06:55] LABS: CREATININE 1.31 mg/dl (0.60-1.20); POTASSIUM 4.2 mmol/L (3.5-5.1)
[2017-04-29] MEDS: ASPIRIN 81 MG ECTAB PO SCH (08:16)
[2017-04-29] MEDS: HYDROCHLOROTHIAZIDE 25 MG TAB PO SCH (08:16)
[2017-04-29] MEDS: FUROSEMIDE INJ 20 MG in SYRINGE 0 ML IV SCH ×2 (08:16→17:37)
[2017-04-29] MEDS: CITALOPRAM 20 MG TAB PO SCH (08:16)
[2017-04-29] MEDS: TIMOLOL MALEATE 0.5% OP SOLN 5 ML BTL OPR SCH ×2 (08:16→21:43)
[2017-04-29] MEDS: PANTOprazole SOD 40 MG TAB PO SCH (08:16)
[2017-04-29] MEDS: ISOSORBIDE MONONITRATE 20 MG TAB PO SCH ×2 (08:16→17:37)
[2017-04-29] MEDS: PrednisoLONE ACET 1% OP SUSP 5 ML BTL OPB SCH ×2 (08:16→21:43)
[2017-04-29] MEDS: METOPROLOL SUCC 25MG EXT REL TAB PO SCH (08:17)
[2017-04-29] MEDS: CARBAMAZEPINE 200 MG TAB PO SCH ×2 (08:17→21:18)
[2017-04-29] MEDS: ANASTROZOLE 1 MG TAB PO SCH (08:17)
[2017-04-29] MEDS: HYDROXYUREA 500 MG CAP PO SCH ×2 (08:18→12:04)
[2017-04-29] MEDS: HEPARIN SOD 5000 UNIT/0.5 ML CARP SQ SCH ×2 (08:18→21:25)
[2017-04-29] MEDS: INSULIN ASPART 100 UNITS/ML 3 ML PEN SC SCH ×4 (08:19→21:25)
[2017-04-29] MEDS: ACETAMINOPHEN 500 MG TAB PO PRN ×2 (08:32→21:20)
--- NOTE | 2017-04-29 09:20 | Hospitalist Progress Note ---
Hospitalist Progress Note Date of Service Apr 29, 2017. (Jennifer Pineda CRNP) Subjective Pt evaluation today including: conversation w/ patient, physical exam, chart review, lab review, review of inpatient medication list Voiding: rodriguez catheter in place Ms. Harmon is at her baseline mentation today. Her chest/rib pain is gone. She is not short of breath or coughing, still requiring 2L NC. ROS Constitutional: no chills, aches, sweats or fever Respiratory: see hpi Cardiac: no chest pain, palpitations, edema, orthopnea or lightheadedness GI: no abdominal pain, nausea, vomiting, diarrhea or constipation : no dysuria or hesitancy Extremities: no joint pain or weakness Skin: no rash All other systems reviewed and negative (Jennifer Pineda CRNP) Medications Medications Administered Medications (Trade) Dose Ordered Sig/Ashley Route Start Time Stop Time Status Last Admin Dose Admin Sodium Chloride 500 ml @ 999 mls/hr Q31M STAT IV 04/23/17 00:15 04/23/17 00:45 DC 04/23/17 00:54 999 MLS/HR Sodium Chloride 1,000 ml @ 150 mls/hr Q6H40M ONCE IV 04/23/17 00:15 04/23/17 02:19 DC 04/23/17 01:34 150 MLS/HR Anastrozole (Arimidex Tab) 1 mg DAILY PO 04/23/17 09:00 05/23/17 08:59 04/29/17 08:17 1 MG Aspirin (Ecotrin Tab) 81 mg QAM PO 04/23/17 09:00 05/23/17 08:59 04/29/17 08:16 81 MG Citalopram Hydrobromide (celeXA TAB) 20 mg QAM PO 04/23/17 09:00 05/23/17 08:59 04/29/17 08:16 20 MG Diazepam (Valium Tab) 5 mg HS PO 04/23/17 21:00 05/23/17 20:59 04/28/17 21:09 5 MG Hydroxyurea (Hydrea Cap) 500 mg BID@0900,1200 PO 04/23/17 09:00 05/23/17 08:59 04/29/17 08:18 500 MG Isosorbide Mononitrate (Ismo Tab) 20 mg BID17 PO 04/23/17 09:00 05/23/17 08:59 04/29/17 08:16 20 MG Metoprolol Succinate (Toprol Xl Tab) 25 mg DAILY PO 04/23/17 09:00 05/23/17 08:59 04/29/17 08:17 25 MG Pravastatin Sodium (Pravachol Tab) 20 mg HS PO 04/23/17 21:00 05/23/17 20:59 04/28/17 21:12 20 MG Prednisolone Acetate (Pred Forte 1% Oph Susp) 1 drops AMHS OPB 04/23/17 09:00 05/23/17 08:59 04/29/17 08:16 1 DROPS Timolol Maleate (Timoptic 0.5% Oph Soln) 1 drops AMHS OPR 04/23/17 09:00 05/23/17 08:59 04/29/17 08:16 1 DROPS Pantoprazole Sodium (Protonix Tab) 40 mg QAM PO 04/23/17 09:00 05/23/17 08:59 04/29/17 08:16 40 MG Verapamil HCl (Calan-Sr Tab) 120 mg HS PO 04/23/17 21:00 05/23/17 20:59 04/28/17 21:10 120 MG Sodium Chloride 1,000 ml @ 80 mls/hr [id number] IV 04/23/17 02:15 04/24/17 07:25 DC 04/23/17 20:20 80 MLS/HR Heparin Sodium (Porcine) (Heparin Sq 5000 Unit/0.5ml) 5,000 unit Q12 SQ 04/23/17 09:00 05/23/17 08:59 04/29/17 08:18 5,000 UNIT Acetaminophen (Tylenol Tab) 650 mg Q4H PRN PO 04/23/17 02:15 04/28/17 09:37 DC 04/28/17 05:52 650 MG Ondansetron HCl (Zofran Inj) 4 mg Q6H PRN IV 04/23/17 02:15 05/23/17 02:14 04/23/17 22:19 4 MG Ampicillin Sodium/ Sulbactam Sodium 3000 mg/Sodium Chloride 108 ml @ 200 mls/hr Q12H IV 04/23/17 04:00 04/24/17 18:18 DC 04/24/17 16:21 200 MLS/HR Azithromycin 500 mg/Dextrose 255 ml @ 125 mls/hr DAILY@0400 IV 04/23/17 04:00 04/24/17 18:11 DC 04/24/17 04:20 125 MLS/HR Albuterol/ Ipratropium (Duoneb) 3 ml Q6R INH 04/23/17 09:00 05/23/17 08:59 04/29/17 07:17 3 ML Albuterol Sulfate (Ventolin 0.083% 2.5MG/3ML Neb) 2.5 mg Q4H PRN INH 04/23/17 06:00 05/23/17 05:59 04/24/17 05:47 2.5 MG Diazepam (Valium Tab) 5 mg ONE ONCE PO 04/23/17 19:30 04/23/17 19:43 DC 04/23/17 20:17 5 MG Hydroxyzine HCl (Vistaril Tab) 25 mg NOW STAT PO 04/23/17 23:24 04/23/17 23:32 DC 04/24/17 00:06 25 MG Risperidone (Risperdal Tab) 0.25 mg HS PRN PO 04/24/17 07:30 05/24/17 07:29 04/24/17 22:07 0.25 MG Hydrochlorothiazide (Hydrochlorothiazide Tab) 12.5 mg QAM PO 04/24/17 09:00 05/24/17 08:59 04/29/17 08:16 12.5 MG Carbamazepine (Tegretol Tab) 200 mg BID PO 04/24/17 09:00 05/24/17 08:59 04/29/17 08:17 200 MG Furosemide 20 mg/ Syringe 2 ml @ 4 mls/min 0815 ONCE IV 04/24/17 08:15 04/24/17 08:23 DC 04/24/17 08:40 4 MLS/MIN Furosemide 20 mg/ Syringe 2 ml @ 4 mls/min ONE ONCE IV 04/24/17 21:00 04/24/17 21:01 DC 04/24/17 20:41 4 MLS/MIN Lisinopril (Zestril Tab) 40 mg QAM PO 04/25/17 09:00 05/25/17 08:59 Future Hold 04/26/17 08:44 40 MG Levofloxacin 750 mg/Prmx 150 ml @ 100 mls/hr Q48H IV 04/24/17 19:00 04/27/17 21:35 DC 04/26/17 19:05 100 MLS/HR Furosemide 40 mg/ Syringe 4 ml @ 4 mls/min TODAY@1415 ONCE IV 04/25/17 14:15 04/25/17 14:16 DC 04/25/17 15:13 4 MLS/MIN Methylprednisolone Sodium Succinate 125 mg/Syringe 2 ml @ 1.5 mls/min NOW ONCE IV 04/25/17 16:15 04/25/17 16:16 DC 04/25/17 16:34 1.5 MLS/MIN Methylprednisolone Sodium Succinate 60 mg/Syringe 0.96 ml @ 1.5 mls/min Q8H IV 04/26/17 00:00 05/26/17 00:00 04/29/17 08:16 1.5 MLS/MIN Insulin Aspart (novoLOG ASPART) SLIDING SCALE If C... ACHS SC 04/26/17 21:00 05/26/17 20:59 04/28/17 21:16 1 UNITS Cefepime HCl 1000 mg/Syringe 11 ml @ 5.5 mls/min Q8 IV 04/27/17 22:00 05/04/17 21:59 04/29/17 06:26 5.5 MLS/MIN Acetaminophen (Tylenol Tab) 1,000 mg Q8 PRN PO 04/28/17 09:45 05/28/17 09:44 04/29/17 08:32 1,000 MG Furosemide 20 mg/ Syringe 2 ml @ 4 mls/min BID17 IV 04/28/17 17:00 05/28/17 16:59 04/29/17 08:16 4 MLS/MIN Furosemide 20 mg/ Syringe 2 ml @ 4 mls/min NOW ONCE IV 04/28/17 12:08 04/28/17 12:09 DC 04/28/17 12:43 4 MLS/MIN (Jennifer Pineda, ALTAGRACIA) Objective Vital Signs Date Time Temp Pulse Resp B/P (MAP) Pulse Ox O2 Delivery O2 Flow Rate FiO2 04/29/17 08:00 Nasal Cannula 2.0 04/29/17 07:20 71 16 97 Nasal Cannula 2.0 04/29/17 07:03 36.6 70 20 168/77 (107) 96 2.0 04/29/17 04:05 Nasal Cannula 2.0 04/29/17 00:05 Nasal Cannula 2.0 04/28/17 23:37 36.6 74 20 136/68 (90) 97 Nasal Cannula 2.0 04/28/17 20:05 Nasal Cannula 2.0 04/28/17 19:17 70 16 95 Nasal Cannula 2.0 04/28/17 18:54 36.7 71 18 146/70 (95) 95 Room Air 04/28/17 16:11 Nasal Cannula 2.0 04/28/17 14:49 36.5 78 20 150/75 (100) 95 Nasal Cannula 3.0 04/28/17 14:23 74 16 95 Nasal Cannula 2.0 04/28/17 12:30 Nasal Cannula 2.0 04/28/17 11:43 72 163/67 (99) 04/28/17 11:43 79 160/84 (109) 04/28/17 11:42 36.7 61 18 177/82 (113) 97 Nasal Cannula 2.0 (Jennifer Pineda CRNP) Physical Exam Notes: General: no distress Eyes: normal inspection, PERLL Respiratory: chest non tender, diminished sounds, less course in bases today than yesterday, no respiratory distress, no accessory muscle use Cardiac: regular rate and rhythm, no rub or gallop, no murmur, no edema, no jvd GI/: active bowel sounds, no abd pain or tenderness, soft, non distended Extremities: normal range of motion, normal strength, non tender Neuro/Psych: alert and oriented x 3, normal mood and affect Skin: normal color, dry (Jennifer Pineda CRNP) Laboratory Results Last 24 Hours Test 04/28/17 09:22 04/28/17 11:43 04/28/17 16:30 04/28/17 17:15 White Blood Count 6.10 K/uL Red Blood Count 2.17 M/uL Hemoglobin 9.5 g/dL Hematocrit 27.1 % Mean Corpuscular Volume 124.9 fL Mean Corpuscular Hemoglobin 43.8 pg Mean Corpuscular Hemoglobin Concent 35.1 g/dl RDW Standard Deviation 55.6 fL RDW Coefficient of Variation 12.4 % Platelet Count 307 K/uL Mean Platelet Volume 9.0 fL Nucleated RBC Absolute Count (auto) 0.02 K/uL Nucleated Red Blood Cells % 0.3 % Sodium Level 137 mmol/L Potassium Level 4.1 mmol/L Chloride Level 103 mmol/L Carbon Dioxide Level 28 mmol/L Anion Gap 7.0 mmol/L Blood Urea Nitrogen 48 mg/dl Creatinine 1.44 mg/dl Est Creatinine Clear Calc Drug Dose 26.4 ml/min Estimated GFR () 38.8 Estimated GFR (Non- 33.5 BUN/Creatinine Ratio 33.4 Random Glucose 115 mg/dl Calcium Level 8.2 mg/dl Bedside Glucose 137 mg/dl 153 mg/dl Pro-B-Type Natriuretic Peptide 4240 pg/ml Test 04/28/17 20:31 04/29/17 06:10 04/29/17 07:53 Bedside Glucose 183 mg/dl 143 mg/dl White Blood Count 6.42 K/uL Red Blood Count 2.21 M/uL Hemoglobin 9.7 g/dL Hematocrit 27.5 % Mean Corpuscular Volume 124.4 fL Mean Corpuscular Hemoglobin 43.9 pg Mean Corpuscular Hemoglobin Concent 35.3 g/dl RDW Standard Deviation 55.4 fL RDW Coefficient of Variation 12.4 % Platelet Count 379 K/uL Mean Platelet Volume 8.8 fL Nucleated RBC Absolute Count (auto) 0.02 K/uL Nucleated Red Blood Cells % 0.3 % Sodium Level 137 mmol/L Potassium Level 4.2 mmol/L Chloride Level 99 mmol/L Carbon Dioxide Level 30 mmol/L Anion Gap 8.0 mmol/L Blood Urea Nitrogen 51 mg/dl Creatinine 1.31 mg/dl Est Creatinine Clear Calc Drug Dose 29.0 ml/min Estimated GFR () 43.5 Estimated GFR (Non- 37.6 BUN/Creatinine Ratio 38.7 Random Glucose 155 mg/dl Calcium Level 9.0 mg/dl Magnesium Level 2.0 mg/dl (Jennifer Pineda ., ALTAGRACIA) Assessment and Plan Ms. Abreu is an 82 year old woman who presented with generalized weakness likely due to multiple underlying issues Pneumonia/acute hypoxic respiratory failure/ COPD exacerbation - Changed from Unasyn and Zithro to Levaquin as patient's video swallow did not show aspiration - will change to cefepime as CXR shows worsening bilateral consolidations - Nebs and 02 provided - continues to require 2L NC - last echo in 2015 did not show any heart failure however patient did have fluid overload following IVF - continue IV lasix per pulmonology recommendation - Continue solu-medrol at 60 q8h - will continue for now - Consult pulm - morphine, tylenol prn for pleural/sternal pain - resolved today Carbamazepine toxicity - Initially her carbazepine level was 17 and then trended down to 6 - per neuro rec, patient's carbamazepine restarted 04/24 at 200 mg bid. Will follow levels weekly - next check on 04/30 - she has not had a seizure in several years. Weakness with ambulatory dysfunction - likely multifactorial as there is evidence of infection, Carbamazepine toxicity and anemia with a high MCV. - PT/OT ?UTI UA is marginally (+) - should be adequately covered by the above - we chose to treat regardless due to sepsis history - continue levaquin - dc rodriguez Anemia - high MCV - chronic - B12 is high at 970. It is noted that she takes Hydroxyurea which will cause macrocytosis so that the MCV in itself is not a useful indicator. - Hb is at baseline. 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 It does not appear that she is under current treatment for any underlying malignancy. SUZANNE, Chronic Kidney disease - patient's creat was 1.6 on admission, decreased to 1.1 with IVF,1.3 today - has occurred with previous acute illness and is likely pre-renal - Discontinued IVF due to above - resume lisinopril - prp am HTN/HPL - cont Bblocker, Verapamil, Statin, HCTZ History of CVA - cont ASA, Statin Glaucoma - cont Timolol Full code DVT proph - heparin subq (Jennifer Pineda ., ALTAGRACIA) Attending Attestation - Pt seen/examined, chart reviewed, care plan d/w ALTAGRACIA Pineda. I agree w/ the mcnulty components of her documentation. at bedside today. He confirms she is at neuropsych baseline. Pt states "when can I go doc?" She offers no complaints. VSS afebrile o2 sats acceptable on minimal o2 gen - nad neck - no obvious JVD heart - RRR lungs - mild wheeze b/l with mild rales bases abd - soft ext - no edema A/P: 1. acute hypoxic resp failure - 2nd to b/l pneumonia with COPD exacerbation - cont cefepime - day #3. Cont steroids but wean to PO. 2. alpha strep UTI - resolved. 3. metabolic encephalopathy in setting of baseline vascular dementia/cognitive impairment - former resolved, at baseline. 4. COPD with exacerbation - cont steroids, change to PO prednisone. Wean O2 if o2 sats >90%. 5. DVT proph - heparin. 6. CKD stage 3-4 - creatinine acceptable. 7. significant macrocytosis - b12, folate, TSH wnl. Due to hydroxyurea? 8. tegretol toxicity - most recent level was wnl. Tegretol dose decreased appropriately. Tegretol level AM. 9. h/o lung ca - noted. Agree with CT chest to exclude recurrence. 10. hydroxyurea use - thrombocytosis dx in 2016. 11. acute/chronic diastolic CHF - appears resolved; hold lasix, recheck BMP am. updated slow progression Gray Loving MD (Gray Loving MD)
--- NOTE | 2017-04-29 11:26 | ECHOCARDIOGRAM REPORT ---
*NOTICE TO RECEIVING CONSTITUTION PARTY AGENCY This information is strictly Confidential and protected under [place] law. [place] law prohibits you from making any further disclosure of this information unless further disclosure is expressly permitted by the written consent of the person to whom it pertains or is authorized by law. A general authorization for the release of medical or other information is not sufficient for this purpose. Hospital accepts no responsibility if the information is made available to any other person, INCLUDING THE PATIENT. Interpretation Summary * Name: ISHMAEL BRIAN Study Date: 04/29/2017 09:23 AM BP: 168/77 mmHg * Patient Location: [facility]\S\N281\S\2 HR: 71 * : 1935 (M/d/yyyy) Gender: Female Height: 60 in * Age: 82 yrs Ethnicity: [place] Weight: 161 lb * Ordering Physician: Rigoberto Turner * Referring Physician: Self, Referred * Performed By: Janet Castaneda RDCS * * Reason For Study: CHF * BSA: 1.7 m2 * -- Conclusions -- * Left ventricular systolic function is normal. * There is moderate to severe mitral annular calcification. * Right ventricular systolic pressure is normal. * There is moderate concentric left ventricular hypertrophy. * Grade I diastolic dysfunction, (abnormal relaxation pattern). * Compared to an echocardiogram from 04/2015, there is minimal difference. Procedure Details * A complete two-dimensional transthoracic echocardiogram was performed (2D, M-mode, Doppler and color flow Doppler). * Patient had no IV access for Definity, however her Parasternal images were challenging and Definity is more helpful in the Apical view. Heart function was able to be evaluated through the apical portion of the study. Left Ventricle * The left ventricle is grossly normal size. * There is moderate concentric left ventricular hypertrophy. * Ejection Fraction = 55-60%. * Left ventricular systolic function is normal. * Grade I diastolic dysfunction, (abnormal relaxation pattern). * The left ventricular wall motion is normal. Right Ventricle * The right ventricle is grossly normal size. * The right ventricular systolic function is normal as assessed by tricuspid annular plane systolic excursion (TAPSE) (normal >1.5 cm). Atria * The left atrial size is normal. * Right atrial size is normal. Mitral Valve * There is moderate to severe mitral annular calcification. * There is no mitral valve stenosis. * Significant mitral regurgitation is absent. Tricuspid Valve * The tricuspid valve is not well visualized, but is grossly normal. * There is trace tricuspid regurgitation. * Right ventricular systolic pressure is normal. Aortic Valve * The aortic valve is not well visualized. * No hemodynamically significant valvular aortic stenosis. * There is no significant aortic regurgitation. Pulmonic Valve * The pulmonic valve is not well visualized. Pericardium/Pleural * There is no pericardial effusion. Great Vessels * Normal inferior vena cava diameter and respiratory variation suggests normal central venous pressure. MMode 2D Measurements and Calculations LVAd ap4 21.0 cm\S\2 LVLd ap4 6.6 cm EDV(MOD-sp4) 53.9 ml EDV(sp4-el) 56.7 ml LVAs ap4 12.4 cm\S\2 LVLs ap4 5.8 cm ESV(MOD-sp4) 22.7 ml ESV(sp4-el) 22.4 ml EF(MOD-sp4) 57.9 % EF(sp4-el) 60.5 % LVAd ap2 21.8 cm\S\2 LVLd ap2 7.7 cm EDV(MOD-sp2) 50.4 ml EDV(sp2-el) 52.4 ml LVAs ap2 12.0 cm\S\2 LVLs ap2 6.2 cm ESV(MOD-sp2) 20.3 ml ESV(sp2-el) 19.7 ml EF(MOD-sp2) 59.8 % EF(sp2-el) 62.4 % LVLd %diff 13.9 % EDV(MOD-bp) 56.1 ml LVLs %diff 6.9 % ESV(MOD-bp) 21.9 ml EF(MOD-bp) 61.0 % SV(MOD-sp4) 31.2 ml SI(MOD-sp4) 18.3 ml/m\S\2 SV(MOD-sp2) 30.2 ml SI(MOD-sp2) 17.7 ml/m\S\2 SV(MOD-bp) 34.2 ml SI(MOD-bp) 20.1 ml/m\S\2 SV(sp4-el) 34.3 ml SI(sp4-el) 20.1 ml/m\S\2 SV(sp2-el) 32.7 ml SI(sp2-el) 19.2 ml/m\S\2 Doppler Measurements and Calculations MV E max teofilo 98.7 cm/sec MV A max teofilo 158.5 cm/sec MV E/A 0.62 MV dec time 0.30 sec Ao V2 max 158.8 cm/sec Ao max PG 10.1 mmHg Ao max PG (full) 3.7 mmHg LV V1 max PG 6.3 mmHg LV V1 max 125.9 cm/sec TR max teofilo 216.6 cm/sec
--- NOTE | 2017-04-29 12:19 | Pulmonology Progress Note ---
Pulmonary Progress Note Date of Service Apr 29, 2017. Attending Dr. Turner Subjective The patient clinically improving, she feels much better today, she is only on 1 L of oxygen via nasal cannula, O2 saturation maintained at 94%. At rest. According to patient she has been ambulating, doubt it. Objective Physical exam on 04/29/2017 showed elderly female, does not appear to be in respiratory distress, speaks in full sentences, O2 saturation reported at 94% on nasal cannula, scattered crackles mainly at the bases, S1-S2 regular rate and rhythm, abdomen is benign trace edema in the periphery. Her laboratory also reviewed which showed BNP of 4200. Echocardiogram also was reviewed which showed preserved left ventricle and PA pressure in the range of 30. Assessment & Plan 1. Right lower lobe pneumonia , slowly improving. Currently treated with cefepime. 2. COPD, no evidence of a lot of exacerbation although the patient is receiving systemic steroids with adjusted doses. 3. Bilateral pleural effusion with fluid overload with an elevated BNP. Preserved cardiac function on echocardiogram. 4. Possible dementia. 5. History of seizure disorder, no recurrence, Tegretol toxicity on admission. Plan: 1. The patient is on cefepime day 3, if the patient continues to be afebrile, de-escalate the antibiotic, and change her to oral antibiotics. Augmentin should be adequate. 2. Stop Solu-Medrol and start prednisone 50 mg p.o. daily. Keep it for 5 days then taper by 10 mg every other day afterward. 3. Agree with gentle diuresis as the patient continued to have pulmonary vascular congestion. Her BNP remained elevated. She does have good left ventricle function with EF of 65%. PA pressures near normal at 30. Her TAPSE is more than 1.5. 4. Ambulate the patient. 5. Likely the patient will need oxygen at home. However she lives in a trailer according to her. I will defer suitability to the oil field caser in that regard. 6. Agree with the rest of her management. Thank you for your kind referral, will follow. Data Medications: Current Inpatient Medications Medications (Trade) Dose Ordered Sig/Ashley Route Start Time Stop Time Status Last Admin Dose Admin Anastrozole (Arimidex Tab) 1 mg DAILY PO 04/23/17 09:00 05/23/17 08:59 04/29/17 08:17 1 MG Aspirin (Ecotrin Tab) 81 mg QAM PO 04/23/17 09:00 05/23/17 08:59 04/29/17 08:16 81 MG Citalopram Hydrobromide (celeXA TAB) 20 mg QAM PO 04/23/17 09:00 05/23/17 08:59 04/29/17 08:16 20 MG Diazepam (Valium Tab) 5 mg HS PO 04/23/17 21:00 05/23/17 20:59 04/28/17 21:09 5 MG Hydroxyurea (Hydrea Cap) 500 mg BID@0900,1200 PO 04/23/17 09:00 05/23/17 08:59 04/29/17 12:04 500 MG Isosorbide Mononitrate (Ismo Tab) 20 mg BID17 PO 04/23/17 09:00 05/23/17 08:59 04/29/17 08:16 20 MG Metoprolol Succinate (Toprol Xl Tab) 25 mg DAILY PO 04/23/17 09:00 05/23/17 08:59 04/29/17 08:17 25 MG Pravastatin Sodium (Pravachol Tab) 20 mg HS PO 04/23/17 21:00 05/23/17 20:59 04/28/17 21:12 20 MG Prednisolone Acetate (Pred Forte 1% Oph Susp) 1 drops AMHS OPB 04/23/17 09:00 05/23/17 08:59 04/29/17 08:16 1 DROPS Timolol Maleate (Timoptic 0.5% Oph Soln) 1 drops AMHS OPR 04/23/17 09:00 05/23/17 08:59 04/29/17 08:16 1 DROPS Pantoprazole Sodium (Protonix Tab) 40 mg QAM PO 04/23/17 09:00 05/23/17 08:59 04/29/17 08:16 40 MG Verapamil HCl (Calan-Sr Tab) 120 mg HS PO 04/23/17 21:00 05/23/17 20:59 04/28/17 21:10 120 MG Heparin Sodium (Porcine) (Heparin Sq 5000 Unit/0.5ml) 5,000 unit Q12 SQ 04/23/17 09:00 05/23/17 08:59 04/29/17 08:18 5,000 UNIT Al Hydrox/Mg Hydrox/Simethicone (Maalox Max Susp) 15 ml Q4H PRN PO 04/23/17 02:15 05/23/17 02:14 Magnesium Hydroxide (Milk Of Magnesia Susp) 30 ml Q12H PRN PO 04/23/17 02:15 05/23/17 02:14 Ondansetron HCl (Zofran Inj) 4 mg Q6H PRN IV 04/23/17 02:15 05/23/17 02:14 04/23/17 22:19 4 MG Polyethylene (Miralax Powder Packet) 17 gm DAILY PRN PO 04/23/17 02:15 05/23/17 02:14 Miscellaneous (Iv Fluids Completed) 1 ea PRN PRN N/A 04/23/17 04:45 04/23/18 04:44 Albuterol/ Ipratropium (Duoneb) 3 ml Q6R INH 04/23/17 09:00 05/23/17 08:59 04/29/17 07:17 3 ML Albuterol Sulfate (Ventolin 0.083% 2.5MG/3ML Neb) 2.5 mg Q4H PRN INH 04/23/17 06:00 05/23/17 05:59 04/24/17 05:47 2.5 MG Risperidone (Risperdal Tab) 0.25 mg HS PRN PO 04/24/17 07:30 05/24/17 07:29 04/24/17 22:07 0.25 MG Hydrochlorothiazide (Hydrochlorothiazide Tab) 12.5 mg QAM PO 04/24/17 09:00 05/24/17 08:59 04/29/17 08:16 12.5 MG Carbamazepine (Tegretol Tab) 200 mg BID PO 04/24/17 09:00 05/24/17 08:59 04/29/17 08:17 200 MG Lisinopril (Zestril Tab) 40 mg QAM PO 04/25/17 09:00 05/25/17 08:59 Future hold 04/26/17 08:44 40 MG Methylprednisolone Sodium Succinate 60 mg/Syringe 0.96 ml @ 1.5 mls/min Q8H IV 04/26/17 00:00 05/26/17 00:00 04/29/17 08:16 1.5 MLS/MIN Insulin Aspart (novoLOG ASPART) SLIDING SCALE If C... ACHS SC 04/26/17 21:00 05/26/17 20:59 04/29/17 12:04 1 UNITS Glucose (Glucose 40% Gel) 15-30 GRAMS 15 GRAMS... UD PRN PO 04/26/17 17:30 05/26/17 17:29 Glucose (Glucose Chew Tab) 4-8 Tablets 4 Tabl... UD PRN PO 04/26/17 17:30 05/26/17 17:29 Dextrose (Dextrose 50% 50ML Syringe) 25-50ML OF 50% DW IV FOR... UD PRN IV 04/26/17 17:30 05/26/17 17:29 Glucagon (Glucagon Inj) 1 mg UD PRN SQ 04/26/17 17:30 05/26/17 17:29 Cefepime HCl 1000 mg/Syringe 11 ml @ 5.5 mls/min Q8 IV 04/27/17 22:00 05/04/17 21:59 04/29/17 06:26 5.5 MLS/MIN Acetaminophen (Tylenol Tab) 1,000 mg Q8 PRN PO 04/28/17 09:45 05/28/17 09:44 04/29/17 08:32 1,000 MG Morphine Sulfate (MoRPHine SULFATE INJ) 2 mg Q4H PRN IV 04/28/17 09:45 05/12/17 09:44 Furosemide 20 mg/ Syringe 2 ml @ 4 mls/min BID17 IV 04/28/17 17:00 05/28/17 16:59 04/29/17 08:16 4 MLS/MIN Vital Signs: Date Time Temp Pulse Resp B/P (MAP) Pulse Ox O2 Delivery O2 Flow Rate FiO2 04/29/17 11:39 36.9 75 18 153/84 (107) 90 Nasal Cannula 3.0 04/29/17 08:00 Nasal Cannula 2.0 04/29/17 07:20 71 16 97 Nasal Cannula 2.0 04/29/17 07:03 36.6 70 20 168/77 (107) 96 2.0 04/29/17 04:05 Nasal Cannula 2.0 04/29/17 00:05 Nasal Cannula 2.0 04/28/17 23:37 36.6 74 20 136/68 (90) 97 Nasal Cannula 2.0 04/28/17 20:05 Nasal Cannula 2.0 04/28/17 19:17 70 16 95 Nasal Cannula 2.0 04/28/17 18:54 36.7 71 18 146/70 (95) 95 Room Air 04/28/17 16:11 Nasal Cannula 2.0 04/28/17 14:49 36.5 78 20 150/75 (100) 95 Nasal Cannula 3.0 04/28/17 14:23 74 16 95 Nasal Cannula 2.0 04/28/17 12:30 Nasal Cannula 2.0 Laboratory Results: Last 24 Hours Test 04/28/17 16:30 04/28/17 17:15 04/28/17 20:31 04/29/17 06:10 Bedside Glucose 153 mg/dl 183 mg/dl Pro-B-Type Natriuretic Peptide 4240 pg/ml White Blood Count 6.42 K/uL Red Blood Count 2.21 M/uL Hemoglobin 9.7 g/dL Hematocrit 27.5 % Mean Corpuscular Volume 124.4 fL Mean Corpuscular Hemoglobin 43.9 pg Mean Corpuscular Hemoglobin Concent 35.3 g/dl RDW Standard Deviation 55.4 fL RDW Coefficient of Variation 12.4 % Platelet Count 379 K/uL Mean Platelet Volume 8.8 fL Nucleated RBC Absolute Count (auto) 0.02 K/uL Nucleated Red Blood Cells % 0.3 % Sodium Level 137 mmol/L Potassium Level 4.2 mmol/L Chloride Level 99 mmol/L Carbon Dioxide Level 30 mmol/L Anion Gap 8.0 mmol/L Blood Urea Nitrogen 51 mg/dl Creatinine 1.31 mg/dl Est Creatinine Clear Calc Drug Dose 29.0 ml/min Estimated GFR () 43.5 Estimated GFR (Non- 37.6 BUN/Creatinine Ratio 38.7 Random Glucose 155 mg/dl Calcium Level 9.0 mg/dl Magnesium Level 2.0 mg/dl Test 04/29/17 07:53 04/29/17 11:19 Bedside Glucose 143 mg/dl 158 mg/dl
[2017-04-29] MEDS: NYSTATIN SUSP 500,000 U/5 ML UDC PO SCH ×2 (17:37→21:21)
[2017-04-29] MEDS: DIAZEPAM 5MG TAB PO SCH (21:18)
[2017-04-29] MEDS: VERAPAMIL HCL 120 MG TABCR PO SCH (21:19)
[2017-04-29] MEDS: PRAVASTATIN SOD 20 MG TAB PO SCH (21:21)
[2017-04-30] MEDS: ALBUT/IPRATROP 3MG/0.5MG NEB 3 ML VIAL INH SCH ×3 (03:00→14:23)
[2017-04-30] MEDS: CEFEPIME IV 1,000 MG in SYRINGE 0 ML IV SCH ×2 (06:30→13:19)
[2017-04-30] MEDS: NYSTATIN SUSP 500,000 U/5 ML UDC PO SCH ×2 (06:31→12:03)
[2017-04-30 06:56] LABS: CREATININE 1.49 mg/dl (0.60-1.20); POTASSIUM 3.1 mmol/L (3.5-5.1)
[2017-04-30 06:57] VITALS: PULSE 64; O2SAT 94
[2017-04-30 07:01] VITALS: BP 131/75; PULSE 66; TEMP 36.7; O2SAT 94
[2017-04-30] MEDS: INSULIN ASPART 100 UNITS/ML 3 ML PEN SC SCH ×2 (08:48→12:05)
[2017-04-30] MEDS: CITALOPRAM 20 MG TAB PO SCH (08:52)
[2017-04-30] MEDS: ASPIRIN 81 MG ECTAB PO SCH (08:52)
[2017-04-30] MEDS: HYDROCHLOROTHIAZIDE 25 MG TAB PO SCH (08:52)
[2017-04-30] MEDS: TIMOLOL MALEATE 0.5% OP SOLN 5 ML BTL OPR SCH (08:52)
[2017-04-30] MEDS: PrednisoLONE ACET 1% OP SUSP 5 ML BTL OPB SCH (08:52)
[2017-04-30] MEDS: CARBAMAZEPINE 200 MG TAB PO SCH (08:53)
[2017-04-30] MEDS: PANTOprazole SOD 40 MG TAB PO SCH (08:53)
[2017-04-30] MEDS: ANASTROZOLE 1 MG TAB PO SCH (08:53)
[2017-04-30] MEDS: ISOSORBIDE MONONITRATE 20 MG TAB PO SCH (08:53)
[2017-04-30] MEDS: METOPROLOL SUCC 25MG EXT REL TAB PO SCH (08:53)
[2017-04-30] MEDS: HYDROXYUREA 500 MG CAP PO SCH ×2 (08:54→12:05)
[2017-04-30] MEDS: HEPARIN SOD 5000 UNIT/0.5 ML CARP SQ SCH (08:54)
[2017-04-30] MEDS: LISINOPRIL 40 MG TAB PO SCH (08:55)
--- NOTE | 2017-04-30 12:10 | Pulmonology Progress Note ---
Pulmonary Progress Note Date of Service Apr 30, 2017. Attending Dr. Jeffries Subjective No complaints today. Denies any pain or dyspnea. Appetite is in-tact. Denies dyspnea or cough. Tells me she is going home today once her comes. Objective 82-yo female admitted to [facility] through the ER 04/22/17 with symptoms of weakness and acute cough with imaging consistent with right pneumonia ? aspiration, SUZANNE, anemia, UTI (alpha strep), pleural effusion and carbamazepine toxicity. 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 dementia. Former tobacco. CXR 04/22/17: patchy subsegmental left basilar opacities. CXR 04/24/17: cardiomegaly with mild pulmonary vascular congestion. Small bilateral pleural effusions with progressively worsened bibasilar alveolar opacities. CXR 04/26/17: Improved aeration of left lung base. Trace left parapneumonic effusion. CXR 04/27/17: Significant interval worsening of the right lung consolidation and increasing left basilar consolidation. Increasing right parapneumonic effusion Video Swallow: 04/24/17: Laryngeal penetration without aspiration. Patient treated with cefepime, steroid (no PO), evelyn diuresis, oxygen ( weaned to 2LPM) and bronchodilators. Echocardiogram 04/29/17: Mod/Severe mitral annular calcification, nL RV pressure , moderate concentric LVH, Grade I diastolic dysfunction. Today: - 93-94% - 2LPM - Afebrile, HD stable - Wt: 70.3kG Physical Exam: Constitutional: Frail elderly female sitting at edge of bed - returned from the restroom. No acute distress HEENT: arcus seniles, no injection, moist mucous membranes without visible erythema Respiratory: O2 via NC in place. Bilateral rhonchi and diminished BS at bilateral bases to 1/3 lung rossi. No wheeze. CV: Regular rate. No Murmur appreciated. Warm and perfused peripherally GI: soft, active bowel sounds MSK/Extremities: Ambulating carefully with walker. Moving bilaterally. No peripheral edema. Neurologic: Alert. Cooperative. Assessment & Plan 1. RLL pneumonia & pleural effusion- Clinically stable yet continued diminished basilar breath sounds and O2 need - Cough encouraged, nutrition, PT/OT strengthening - Repeat upright 2-view CXR 2. COPD: Wean prednisone by 5mg Q3 days until off - PFTs post discharge Discussed with Dr. Jeffries Data Medications: Current Inpatient Medications Medications (Trade) Dose Ordered Sig/Ashley Route Start Time Stop Time Status Last Admin Dose Admin Anastrozole (Arimidex Tab) 1 mg DAILY PO 04/23/17 09:00 05/23/17 08:59 04/30/17 08:53 1 MG Aspirin (Ecotrin Tab) 81 mg QAM PO 04/23/17 09:00 05/23/17 08:59 04/30/17 08:52 81 MG Citalopram Hydrobromide (celeXA TAB) 20 mg QAM PO 04/23/17 09:00 05/23/17 08:59 04/30/17 08:52 20 MG Diazepam (Valium Tab) 5 mg HS PO 04/23/17 21:00 05/23/17 20:59 04/29/17 21:18 5 MG Hydroxyurea (Hydrea Cap) 500 mg BID@0900,1200 PO 04/23/17 09:00 05/23/17 08:59 04/30/17 08:54 500 MG Isosorbide Mononitrate (Ismo Tab) 20 mg BID17 PO 04/23/17 09:00 05/23/17 08:59 04/30/17 08:53 20 MG Metoprolol Succinate (Toprol Xl Tab) 25 mg DAILY PO 04/23/17 09:00 05/23/17 08:59 04/30/17 08:53 25 MG Pravastatin Sodium (Pravachol Tab) 20 mg HS PO 04/23/17 21:00 05/23/17 20:59 04/29/17 21:21 20 MG Prednisolone Acetate (Pred Forte 1% Oph Susp) 1 drops [facility] OPB 04/23/17 09:00 05/23/17 08:59 04/30/17 08:52 1 DROPS Timolol Maleate (Timoptic 0.5% Oph Soln) 1 drops [facility] OPR 04/23/17 09:00 05/23/17 08:59 04/30/17 08:52 1 DROPS Pantoprazole Sodium (Protonix Tab) 40 mg QAM PO 04/23/17 09:00 05/23/17 08:59 04/30/17 08:53 40 MG Verapamil HCl (Calan-Sr Tab) 120 mg HS PO 04/23/17 21:00 05/23/17 20:59 04/29/17 21:19 120 MG Heparin Sodium (Porcine) (Heparin Sq 5000 Unit/0.5ml) 5,000 unit Q12 SQ 04/23/17 09:00 05/23/17 08:59 04/30/17 08:54 5,000 UNIT Al Hydrox/Mg Hydrox/Simethicone (Maalox Max Susp) 15 ml Q4H PRN PO 04/23/17 02:15 05/23/17 02:14 Magnesium Hydroxide (Milk Of Magnesia Susp) 30 ml Q12H PRN PO 04/23/17 02:15 05/23/17 02:14 Ondansetron HCl (Zofran Inj) 4 mg Q6H PRN IV 04/23/17 02:15 05/23/17 02:14 04/23/17 22:19 4 MG Polyethylene (Miralax Powder Packet) 17 gm DAILY PRN PO 04/23/17 02:15 05/23/17 02:14 Miscellaneous (Iv Fluids Completed) 1 ea PRN PRN N/A 04/23/17 04:45 04/23/18 04:44 Albuterol/ Ipratropium (Duoneb) 3 ml Q6R INH 04/23/17 09:00 05/23/17 08:59 04/30/17 06:57 3 ML Albuterol Sulfate (Ventolin 0.083% 2.5MG/3ML Neb) 2.5 mg Q4H PRN INH 04/23/17 06:00 05/23/17 05:59 04/24/17 05:47 2.5 MG Risperidone (Risperdal Tab) 0.25 mg HS PRN PO 04/24/17 07:30 05/24/17 07:29 04/24/17 22:07 0.25 MG Hydrochlorothiazide (Hydrochlorothiazide Tab) 12.5 mg QAM PO 04/24/17 09:00 05/24/17 08:59 04/30/17 08:52 12.5 MG Carbamazepine (Tegretol Tab) 200 mg BID PO 04/24/17 09:00 05/24/17 08:59 04/30/17 08:53 200 MG Lisinopril (Zestril Tab) 40 mg QAM PO 04/25/17 09:00 05/25/17 08:59 Future hold 04/26/17 08:44 40 MG Insulin Aspart (novoLOG ASPART) SLIDING SCALE If C... ACHS SC 04/26/17 21:00 05/26/17 20:59 04/29/17 21:25 2 UNITS Glucose (Glucose 40% Gel) 15-30 GRAMS 15 GRAMS... UD PRN PO 04/26/17 17:30 05/26/17 17:29 Glucose (Glucose Chew Tab) 4-8 Tablets 4 Tabl... UD PRN PO 04/26/17 17:30 05/26/17 17:29 Dextrose (Dextrose 50% 50ML Syringe) 25-50ML OF 50% DW IV FOR... UD PRN IV 04/26/17 17:30 05/26/17 17:29 Glucagon (Glucagon Inj) 1 mg UD PRN SQ 04/26/17 17:30 05/26/17 17:29 Cefepime HCl 1000 mg/Syringe 11 ml @ 5.5 mls/min Q8 IV 04/27/17 22:00 05/04/17 21:59 04/30/17 06:30 5.5 MLS/MIN Acetaminophen (Tylenol Tab) 1,000 mg Q8 PRN PO 04/28/17 09:45 05/28/17 09:44 04/29/17 21:20 1,000 MG Morphine Sulfate (MoRPHine SULFATE INJ) 2 mg Q4H PRN IV 04/28/17 09:45 05/12/17 09:44 04/30/17 08:54 2 MG Furosemide 20 mg/ Syringe 2 ml @ 4 mls/min BID17 IV 04/28/17 17:00 05/28/17 16:59 Future Hold 04/29/17 17:37 4 MLS/MIN Prednisone (PredniSONE TAB) 50 mg DAILY PO 04/30/17 09:00 05/30/17 08:59 04/30/17 08:53 50 MG Nystatin (Mycostatin Susp) 5 ml ACHS PO 04/29/17 16:30 05/09/17 16:29 04/30/17 06:31 5 ML Vital Signs: Date Time Temp Pulse Resp B/P (MAP) Pulse Ox O2 Delivery O2 Flow Rate FiO2 04/30/17 08:00 Nasal Cannula 2.0 04/30/17 07:01 36.7 66 18 131/75 (93) 94 Nasal Cannula 2.0 04/30/17 06:57 64 16 94 Nasal Cannula 2.0 04/30/17 00:05 Nasal Cannula 2.0 04/29/17 23:33 36.3 65 19 125/68 (87) 93 Nasal Cannula 2.0 04/29/17 20:05 Nasal Cannula 2.0 04/29/17 19:20 79 16 91 Nasal Cannula 2.0 04/29/17 19:09 36.4 85 20 138/63 (88) 91 Nasal Cannula 2.0 04/29/17 16:00 Nasal Cannula 2.0 04/29/17 15:22 36.5 77 18 170/72 (104) 90 Nasal Cannula 2.0 04/29/17 14:08 70 16 95 Nasal Cannula 2.0 04/29/17 11:39 36.9 75 18 153/84 (107) 90 Nasal Cannula 3.0 Laboratory Results: Last 24 Hours Test 04/29/17 16:29 04/29/17 20:09 04/30/17 05:58 04/30/17 07:08 Bedside Glucose 159 mg/dl 214 mg/dl 111 mg/dl Sodium Level 138 mmol/L Potassium Level 3.1 mmol/L Chloride Level 97 mmol/L Carbon Dioxide Level 36 mmol/L Anion Gap 5.0 mmol/L Blood Urea Nitrogen 51 mg/dl Creatinine 1.49 mg/dl Est Creatinine Clear Calc Drug Dose 25.4 ml/min Estimated GFR () 37.3 Estimated GFR (Non- 32.1 BUN/Creatinine Ratio 34.3 Random Glucose 93 mg/dl Calcium Level 9.0 mg/dl Chemistry Specimen Hemolysis Carbamazepine (Tegretol) Level 8.0 mcg/ml
[2017-04-30] MEDS ORDERED: POTASSIUM CHLORIDE 10 MEQ TABCR PO ONE (13:30)
--- NOTE | 2017-04-30 14:16 | DIAGNOSTIC IMAGING REPORT ---
CHEST 2 VIEWS ROUTINE CLINICAL HISTORY: Shortness of breath. Effusion. Infiltrate. COMPARISON STUDY: Chest radiograph April 27, 2017. FINDINGS: A small right pleural effusion is noted. Right hemithorax volume loss is again noted. Asymmetric right lung airspace opacity has improved. Left lung is clear. Old bilateral rib deformities are noted. There is no pneumothorax. There is no evidence for pulmonary edema. IMPRESSION: 1. Asymmetric right lung airspace opacity which has improved since exam of April 27, 2017. 2. Small right pleural effusion. Electronically signed by: Jorge Payton M.D. 04/30/2017 2:15 PM Dictated Date/Time: 04/30/2017 2:12 PM
[2017-04-30 14:23] VITALS: PULSE 83; O2SAT 93
[2017-04-30 14:41] VITALS: BP 131/84; PULSE 79; TEMP 36.6; O2SAT 92
[2017-04-30 14:55] VITALS: BP 131/84; PULSE 79; TEMP 36.6; O2SAT 92
[2017-04-30] MEDS ORDERED: PRD10 PO (15:20)
[2017-04-30] MEDS ORDERED: TGR200 PO (15:20)
[2017-04-30] MEDS ORDERED: AMOX875T PO ×2 (15:36→15:49)
--- NOTE | 2017-04-30 15:41 | Discharge Instructions ---
Discharge Instructions Date of Service Apr 30, 2017. Admission Reason for Admission: Carbamazepine Toxicity, Weakness Discharge Discharge Diagnosis / Problem: Pneumonia, COPD Discharge Goals Goal(s): Improve function, Increase independence Activity Recommendations Activity Limitations: resume your previous activity Exercise/Sports Limitations: gradually increase as tolerated . Instructions / Follow-Up Instructions / Follow-Up Please follow up with your primary care provider within about a week Please have your blood work drawn Sunday Call your Primary Care doctor if any of the following symptoms or problems start or get worse: * Shortness of breath or difficulty breathing * Wake up at night short of breath * Chest pain * Cough * Swelling of your hands, feet, or legs * More fatigued or tired with your normal activity * Palpitations - sudden fast heart beats WEIGHT * Weigh yourself every morning after using the bathroom. * Use the same scale. * Wear the same amount of clothing. * Write your weight down on a chart. * Call your Primary Care doctor if you gain more than 2-3 pounds in 1-2 days. MEDICATIONS * Use this discharge instruction sheet for medication instructions. * Take your medications at the time your doctor ordered. * Do not skip a dose of your medicines. * If you miss a dose of medicine, take it as soon as possible, but DO NOT DOUBLE A DOSE. * Read your medicine information when you get home. * Know all of the side effects of your medicine. If in doubt, ask your pharmacist * Call your Primary Care doctor's office if you have any side effects. * Be sure all of your doctors know what medicine and herbs you take (including cold, flu, and herbal medicine). Take the following with you to your follow-up doctor appointments: * Weight Chart * Medication List * List of questions Do not drink excessive alcohol, beer or wine. Current Hospital Diet Patient's current hospital diet: AHA Diet (Heart Healthy) Discharge Diet Recommended Diet: AHA Diet (Heart Healthy) Procedures Procedures Performed: Chest X ray Video Swallow Head CT Pending Studies Studies pending at discharge: no Laboratory Results Hemoglobin A1c Test 04/27/17 05:40 Range/Units Estimated Average Glucose 120 mg/dl Hemoglobin A1c 5.8 H 4.5-5.6 % Medical Emergencies . Who to Call and When: Call 911 or go to the Emergency Room if: * If at any time you feel your situation is an emergency * You have tightness or pain in your chest that does not go away with rest or Nitroglycerin * You are very short of breath even with rest . Non-Emergent Contact Non-Emergency issues call your: Primary Care Provider Call Non-Emergent contact if: you have a fever, you have any medication questions . . "Provider Documentation" section prepared by Jennifer Pineda. .
[2017-04-30] MEDS ORDERED: NYSS5 PO (16:00)
--- NOTE | 2017-04-30 16:11 | Discharge Summary ---
Discharge Summary Date of Service Apr 30, 2017. Discharge Summary Admission Date: Apr 28, 2017 at 15:13 Discharge Date: Apr 30, 2017 Discharge Disposition: Home with services Principal Diagnosis: Pneumonia, b/l, possible aspiration Problems/Secondary Diagnoses: COPD exacerbation, acute hypoxic respiratory failure - now with need for ambulatory o2 2-liters with activity, acute/chronic diastolic CHF, Carbamazepine toxicity, Weakness with ambulatory dysfunction, alpha strep UTI, Anemia, SUZANNE, Chronic Kidney disease stage 3-4, HTN/HPL, History of CVA, Glaucoma. essential thrombocytosis w/ PORTILLO-2 mutation, mild cognitive impairment/ vascular dementia Immunizations: Have You Had Influenza Vaccine: Yes Influenza Vaccine Date: Nov 27, 2006 History of Tetanus Vaccine?: Unknown History of Pneumococcal: Unknown History of Hepatitis B Vaccine: Unknown Procedures: CHEST ONE VIEW PORTABLE HISTORY: 82 years-old Female cough acute cough with flulike symptoms COMPARISON: Acute abdominal series radiographs 01/03/2017 TECHNIQUE: Portable AP view of the chest FINDINGS: The patient is slightly rotated to the left. Cardiac silhouette is again enlarged. Chronic volume loss with postsurgical changes of the right lung redemonstrated. Areas of chronic interstitial coarsening are again noted bilaterally, greatest at the level the lung bases and right perihilar distribution. There is no pneumothorax or large pleural effusion. No overt pulmonary edema. Patchy subsegmental left basilar opacities appear new from comparison. Surgical clips project over the left breast laterally. Degenerative changes are seen within the shoulders and spine. Atherosclerosis of the aorta. Chronic bilateral rib fractures. IMPRESSION: 1. Patchy subsegmental left basilar opacities appear new from comparison suggesting atelectasis or pneumonitis. 2. The remainder of the study appears unchanged. The above report was generated using voice recognition software. It may contain grammatical, syntax or spelling errors. Electronically signed by: Nik Lucas M.D. 04/22/2017 10:41 PM Dictated Date/Time: 04/22/2017 10:38 PM HEAD WITHOUT CONTRAST (CT) CLINICAL HISTORY: 82 years-old Female with eval for weakness. Acute weakness TECHNIQUE: Multiple axial CT images of the head were obtained without contrast. A dose lowering technique was utilized adhering to the principles of ALARA. CT DOSE: 537.48 mGy.cm COMPARISON: None. FINDINGS: No acute intracranial hemorrhage, midline shift, intracranial mass, hydrocephalus, territorial ischemia or abnormal extra-axial collection. Moderate atrophy with ex vacuo ventriculomegaly. Encephalomalacia of the left caudate nucleus from remote infarction. Extensive areas of low-attenuation within the white matter of the cerebral hemispheres bilaterally suggest chronic microvascular ischemic changes, greatest at the level of the centrum semiovale. Cerebral vascular calcifications are seen at the level of the skull base. The calvarium is intact. The mastoid air cells, and middle ear cavities are clear. Mild mucosal thickening of the ethmoid air cells. Postsurgical changes of the globes. IMPRESSION: No acute intracranial abnormality. Electronically signed by: Nik Lucas M.D. 04/22/2017 10:46 PM VIDEO SWALLOW CLINICAL HISTORY: 82 years-old Female with possible aspiration pna. Acute weakness with possible aspiration pneumonia TECHNIQUE: Video fluoroscopic evaluation of swallowing was performed in the AP and lateral projections by the speech pathology staff. The patient is fed nectar-thick and thin liquid barium, a barium coated wafer, and barium pudding. FLUOROSCOPY TIME: 2 minutes. 702 images were submitted. COMPARISON STUDY: Chest x-ray 04/24/2017. FINDINGS: Penetration without aspiration is seen within liquid and nectar thick consistencies. Mild esophageal dysmotility is noted throughout the study. No definite aspiration identified. No significant residue collection within the vallecula or piriform sinuses. Multilevel degenerative spurring about the cervical spine. IMPRESSION: 1. Laryngeal penetration without aspiration. 2. Please see the speech pathologist report for detailed findings and recommendations. Electronically signed by: Nik Lucas M.D. 04/24/2017 2:34 PM CHEST 2 VIEWS ROUTINE CLINICAL HISTORY: 82 years-old Female presenting with left=sided pneumonia, interval change. TECHNIQUE: Portable upright AP view of the chest was obtained. COMPARISON: 04/26/2017. FINDINGS: The patient is MALTESE rotated. Allowing for this, cardiac mediastinal silhouette is not significantly changed. Apparent decreased aeration and increased opacity of the right lung. Increasing right pleural effusion. Minimal increase in basilar predominant left pulmonary opacity. Trace left pleural effusion may be present. No large pneumothorax. Osteopenia. Numerous overlying external leads degrade evaluation of the right upper quadrant. IMPRESSION: 1. Significant interval worsening of right lung consolidation and increasing left basilar consolidation. This is concerning for worsening pneumonia. 2. Increasing right parapneumonic effusion. CHEST 2 VIEWS ROUTINE CLINICAL HISTORY: Shortness of breath. Effusion. Infiltrate. COMPARISON STUDY: Chest radiograph April 27, 2017. FINDINGS: A small right pleural effusion is noted. Right hemithorax volume loss is again noted. Asymmetric right lung airspace opacity has improved. Left lung is clear. Old bilateral rib deformities are noted. There is no pneumothorax. There is no evidence for pulmonary edema. IMPRESSION: 1. Asymmetric right lung airspace opacity which has improved since exam of April 27, 2017. 2. Small right pleural effusion. echocardiogram - -- Conclusions -- Left ventricular systolic function is normal. There is moderate to severe mitral annular calcification. Right ventricular systolic pressure is normal. There is moderate concentric left ventricular hypertrophy. Grade I diastolic dysfunction, (abnormal relaxation pattern). Compared to an echocardiogram from 04/2015, there is minimal difference. Consultations: Dr. Turner from pulmonology Medication Reconciliation New Medications: Amoxicillin & Pot Clavulanate (Augmentin 875-125 mg) 1 Tab Tab 875 MG PO BID for 3 Days, #7 TAB Nystatin (Nystatin) 5 Ml Susp 5 ML PO ACHS for 7 Days, #150 ML 1 Refill for thrush Prednisone (Prednisone) 10 Mg Tab 10 MG PO DAILY for 10 Days, #30 TAB 50 mg daily x 2 40 mg daily x 2 30 mg daily x 2 20 mg daily x 2 10 mg daily x 2 Carbamazepine (Carbamazepine) 200 Mg Tab 200 MG PO BID for 30 Days, #30 TAB Continued Medications: Anastrozole (Anastrozole) 1 Mg Tab 1 TAB PO DAILY AT NOON Aspirin (Aspirin Ec) 81 Mg Tab 81 MG PO QAM Calcium/Vitamin D (Os-Krzysztof 500 Plus D) Tab 1 TAB PO QAM, TAB Cholecalciferol (D 2000) 2,000 Unit Tab 2000 UNITS PO DAILY AT NOON Citalopram (Citalopram Hydrobromide) 20 Mg Tab 20 MG PO QAM Diazepam (Valium) 5 Mg Tab 5 MG PO HS, TAB Fish Oil ([place]-3) 1 Ea Cap 1 CAP PO DAILY AT NOON, CAP Garlic (Garlic) 1,000 Mg Cap 1000 MG PO QPM Hydrochlorothiazide (Hctz) 12.5 Mg Cap 12.5 MG PO DAILY AT NOON, TAB Hydroxyurea (Hydrea Cap) 500 Mg Cap 500 MG PO BID AT NOON & 1700, CAP Isosorbide Mononitrate (Isosorbide Mononitrate) 20 Mg Tab 20 MG PO BID17 Lansoprazole (Prevacid) 30 Mg Capcr 30 MG PO QAM Metoprolol Succ (Toprol Xl) (Toprol-Xl) 25 Mg Tabcr 25 MG PO DAILY AT NOON, #30 TAB Multiple Vitamins W/ Minerals (Centrum Silver) 1 Chw Chw 1 TAB PO QAM Pravastatin (Pravachol ) 20 Mg Tab 20 MG PO HS, TAB Prednisolone Acetate (Ophth) (Prednisolone Acetate) 1 % Michelle 1 DROP OPB AMHS for 10 Days, BTL Timolol Maleate (Timolol 0.5% Oph Soln 15 Ml) 15 Ml Soln 1 DROP OPR AMHS Verapamil (Calan) 120 Mg Tab 120 MG PO QPM, TAB Discontinued Medications: Carbamazepine (Tegretol) 200 Mg Tab 200 MG PO TID, TAB Lisinopril (Zestril) 40 Mg Tab 40 MG PO QAM, TAB Discharge Exam ROS Constitutional: no chills, aches, sweats or fever Respiratory: no sob,cough, sputum, or wheezing Cardiac: no chest pain, palpitations, edema, orthopnea or lightheadedness GI: no abdominal pain, nausea, vomiting, diarrhea or constipation : no dysuria or hesitancy Extremities: no joint pain or weakness Skin: no rash All other systems reviewed and negative General: no distress Eyes: normal inspection, PERLL Respiratory: chest non tender, diminished breath sounds with faint coarseness in bases, no respiratory distress, no accessory muscle use Cardiac: regular rate and rhythm, no rub or gallop, no murmur, no edema, no jvd GI/: active bowel sounds, no abd pain or tenderness, soft, non distended Extremities: normal range of motion, normal strength, non tender Neuro/Psych: alert and oriented x 3, normal mood and affect Skin: normal color, dry Hospital Course 82 y/o F Hx HTN, HPL, LVH, LBBB, dysphagia, met breast CA, CVA, anemia, seizure disorder. Pt c/o congestion and flu-like symptoms for 2 days [employer]. She was experiencing a productive cough and had become progressively weak. She could not support her own weight the day of admission so presented to the hospital. Initial labs were notable for a toxic Carbamazepine level, SUZANNE, macrocytic anemia and a marginally (+) UA. A CXR was suspicious for a L PNM. Pneumonia/acute hypoxic respiratory failure/ COPD exacerbation, Type I Diastolic CHF (acute/chronic) - - Changed from Unasyn and Zithro to Levaquin as patient's video swallow did not show aspiration - will change to cefepime as CXR shows worsening bilateral consolidations - pulmonology continues to have suspicions for aspiration despite video swallow - will discharge with Augmentin - Nebs and 02 provided - continues to require 2L NC - 2 step performed and patient to home with 2L NC - Echo showed diastolic dysfunction and EF 55% - patient had an element of fluid overload/CHF exacerbation and was diuresed with IV lasix - solu medrol titrated down to po prednisone - taper for home. - Consult pulm - morphine, tylenol prn for pleural/sternal pain - resolved Carbamazepine toxicity - Initially her carbazepine level was 17 and then trended down to 6 - per neuro rec, patient's carbamazepine restarted 04/24 at 200 mg bid. Level at 8 today - recommend recheck in a week - she has not had a seizure in several years. Weakness with ambulatory dysfunction - likely multifactorial as there is evidence of infection, Carbamazepine toxicity and anemia with a high MCV. - PT/OT - recommended rehab and I did discuss with patient and that this was my recommendation however patient and declined ?UTI UA was marginally (+) - should be adequately covered by the above - we chose to treat regardless due to sepsis history Anemia - high MCV - chronic - B12 is high at 970. It is noted that she takes Hydroxyurea which will cause macrocytosis so that the MCV in itself is not a useful indicator. - Hb is at baseline. 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 It does not appear that she is under current treatment for any underlying malignancy. SUZANNE, Chronic Kidney disease - patient's creat was 1.6 on admission, decreased to 1.1 with IVF,1.4 today - has occurred with previous acute illness and is likely pre-renal - Discontinued IVF due to above - held lisinopril - will defer to outpatient for when to restart - prp in the next couple days outpatient HTN/HPL - cont Bblocker, Verapamil, Statin, HCTZ History of CVA - cont ASA, Statin Glaucoma - cont Timolol Attending Attestation - Pt seen/examined, chart reviewed, care plan d/w ALTAGRACIA Jennifer Miriam. I agree w/ the mcnulty components of her documentation. 82yo female w/ multiple medical problems as noted above who presented with cough for 1 week and fatigue/difficulty walking. During her stay she was treated for acute hypoxic resp failure 2nd to b/l pneumonia and probable bronchitis (?underlying COPD with exacerbation), SUZANNE on top of CKD stage 3-4, alpha strep UTI, metabolic encephalopathy, and tegretol toxicity. Treated with IV steroids, antibiotics, diuresis. Seen in consult by pulmonary - despite negative dysphagia work-up/normal video swallow - felt to be aspirating. Will complete a course of oral augmentin & steroids after d/c. [place] to be compensated from a diastolic CHF standpoint at discharge. Discharge creatinine was 1.5. Rehab was recommended, but (and patient) both adamant about d/c home with services. Patient DOES require 2 liters of NC O2 with activity but not at rest. O2 was set up for the home. Tegretol dose was adjusted to 200mg BID and follow-up tegretol level on this dose was therapeutic. Discharge exam - gen - nad neck - no JVD mouth - thrush heart - RRR lungs - mild end-exp wheeze, mild rales right base/left base abd - soft ext - no edema Gray Loving MD Total Time Spent: Greater than 30 minutes This includes examination of the patient, discharge planning, medication reconciliation, and communication with other providers. Discharge Instructions Please refer to the electronic Patient Visit Report (Discharge Instructions) for additional information. Follow-Up pcp in one week Additional Copies To Samira Mercado M.D.
== END 2017-04-30 16:56 | disposition home health service (06) | DRG 177 ==
LOC: EDBD 21:40 → C.EDB 21:41 → C.MED 04-23 02:11 → UNDOADMOB 04-23 02:11 → ENRESERV 04-23 02:37 → OBSVTOIN 04-24 12:06 → INTOOBSV 04-24 12:06 → C.MED 04-27 00:39 → OBSVTOIN 04-28 15:13 → C.4E 04-30 13:46
PROVIDERS: ADMIT Internal Medicine; ATTEND Internal Medicine
DX: J69.0 Pneumonitis due to inhalation of food and vomit (principal); G93.41 Metabolic encephalopathy; J96.01 Acute respiratory failure with hypoxia; I13.0 Hypertensive heart and chronic kidney disease with heart failure and stage 1 through stage 4 chronic kidney disease, or unspecified chronic kidney disease; I50.33 Acute on chronic diastolic (congestive) heart failure; N18.4 Chronic kidney disease, stage 4 (severe); N17.9 Acute kidney failure, unspecified; N39.0 Urinary tract infection, site not specified; J44.1 Chronic obstructive pulmonary disease with (acute) exacerbation; J44.0 Chronic obstructive pulmonary disease with (acute) lower respiratory infection; B95.5 Unspecified streptococcus as the cause of diseases classified elsewhere; R29.6 Repeated falls; E78.5 Hyperlipidemia, unspecified; I44.7 Left bundle-branch block, unspecified; D53.9 Nutritional anemia, unspecified; R13.10 Dysphagia, unspecified; R53.1 Weakness; T42.1X1A Poisoning by iminostilbenes, accidental (unintentional), initial encounter; F03.90 Unspecified dementia, unspecified severity, without behavioral disturbance, psychotic disturbance, mood disturbance, and anxiety; G40.909 Epilepsy, unspecified, not intractable, without status epilepticus; H40.9 Unspecified glaucoma; Z79.82 Long term (current) use of aspirin; Z79.899 Other long term (current) drug therapy; Z85.3 Personal history of malignant neoplasm of breast; Z86.73 Personal history of transient ischemic attack (TIA), and cerebral infarction without residual deficits; Z88.5 Allergy status to narcotic agent; Z88.8 Allergy status to other drugs, medicaments and biological substances; Z87.891 Personal history of nicotine dependence; Z91.81 History of falling

== ENCOUNTER → 2017-09-04 | Outpatient (CLI) | payer BC ==
[~2017-09-04] MED LIST changes: +AMOX875T PO; -ANAS1TAB6 PO; +ANAS1TAB7 PO; -CARB200T PO; -CEFD1CAP14 PO; -LISI40TA PO; +NYSS5 PO; +PRD10 PO; +TGR200 PO
--- NOTE | 2017-09-04 15:07 | DIAGNOSTIC IMAGING REPORT ---
KUB CLINICAL HISTORY: N39.0 pain COMPARISON STUDY: 01/03/2017 FINDINGS: 3 mm calcification upper pole right kidney. Potential additional 1.5 mm calcification upper pole. Several lower right-sided rib fractures which have a described previously. Nonobstructive bowel pattern. Moderate degenerative change lumbar spine. IMPRESSION: 1. 1, and possibly 2, Upper pole right renal calcifications. 2. Otherwise negative study The above report was generated using voice recognition software. It may contain grammatical, syntax or spelling errors. Electronically signed by: Glen Ayala M.D. 09/04/2017 3:06 PM Dictated Date/Time: 09/04/2017 3:04 PM
== END | disposition home or self-care (01) ==
LOC: C.RAD 14:44
PROVIDERS: ATTEND Urology
DX: N20.0 Calculus of kidney (principal); N39.0 Urinary tract infection, site not specified